=== PATIENT | male | born 1940 | race Caucasian/White ===

== ENCOUNTER 2016-05-16 07:36 | Outpatient (CLI) | payer MEDICARE, OTHER | END 2016-05-16 07:37 | disposition home or self-care (01) | DX: E11.9 Type 2 diabetes mellitus without complications (principal) ==

== ENCOUNTER 2016-06-19 15:21 | Outpatient (CLI) | payer MEDICARE, OTHER | END 2016-06-19 15:22 | DX: E11.9 Type 2 diabetes mellitus without complications (principal); R39.15 Urgency of urination ==

== ENCOUNTER 2016-06-20 10:44 | Outpatient (CLI) | payer MEDICARE, OTHER | END 2016-06-20 10:45 | disposition home or self-care (01) | DX: E11.9 Type 2 diabetes mellitus without complications (principal); R39.15 Urgency of urination ==

== ENCOUNTER 2016-09-28 08:54 | Outpatient (CLI) | payer MEDICARE, OTHER ==
[2016-09-28 13:26] LABS: BASOPHILS # (AUTO) 0.1 10^3/uL (0.0-0.1); BASOPHILS % (AUTO) 0.6 %; EOSINOPHILS # (AUTO) 0.2 10^3/uL (0.0-0.7); EOSINOPHILS % (AUTO) 1.9 %; HCT - HEMATOCRIT 46.9 % (42.0-52.0); HGB - HEMOGLOBIN 15.6 g/dL (14.0-18.0); LYMPHOCYTES % (AUTO) 47.1 %; MEAN CORPUSCULAR HEMOGLOBIN 31.5 pg (27.0-31.0); MEAN CORPUSCULAR HGB CONC 33.2 g/dL (32.0-36.0); MEAN CORPUSCULAR VOLUME 94.8 fL (80.0-94.0); MEAN PLATELET VOLUME 11.2 fL (7.4-11.4); MONOCYTES % (AUTO) 9.4 %; NEUTROPHILS # (AUTO) 4.4 10^3/uL (1.5-6.6); RED BLOOD COUNT 4.95 10^6/uL (4.70-6.10); UNCORRECTED WHITE BLOOD COUNT 10.7 x10^3/uL; WHITE BLOOD COUNT 10.7 x10^3/uL (4.8-10.8)
[2016-09-28 13:31] LABS: HEMOGLOBIN A1C 0.81 g/dL
[2016-09-28 13:32] LABS: ALBUMIN/GLOBULIN RATIO 1.1 (1.0-2.2); BILIRUBIN,TOTAL 0.6 mg/dL (0.2-1.0); BUN - BLOOD UREA NITROGEN 25 mg/dL (6-20); CALCIUM 9.1 mg/dL (8.5-10.3); CARBON DIOXIDE - CO2 25 mmol/L (21-32); CHLORIDE 107 mmol/L (101-111); CHOL/HDL RATIO 6.4 (<5.0); CHOLESTEROL 191 mg/dL; CREATININE 0.9 mg/dL (0.6-1.2); GFR - MDRD 82 (>89); GLUCOSE 112 mg/dL (70-100); HDL CHOLESTEROL 30 mg/dL; LDL/HDL RATIO 2.9 (<3.6); POTASSIUM 3.9 mmol/L (3.5-5.0); SODIUM 139 mmol/L (135-145); TOTAL PROTEIN 7.5 g/dL (6.7-8.2); TRIGLYCERIDES 376 mg/dL; VLDL CHOLESTEROL 75 mg/dL
== END 2016-09-28 08:55 | disposition home or self-care (01) ==
LOC: LAB.WCP 08:54
PROVIDERS: ATTEND Family Medicine
DX: E11.9 Type 2 diabetes mellitus without complications (principal)
CPT/HCPCS: 36415; 80053; 80061; 83036; 84443; 85025

== ENCOUNTER 2017-01-01 13:29 | Outpatient (CLI) | payer MEDICARE, OTHER ==
[2017-01-01 14:07] LABS: ALBUMIN/GLOBULIN RATIO 1.2 (1.0-2.2); BILIRUBIN,TOTAL 0.6 mg/dL (0.2-1.0); CALCIUM 9.1 mg/dL (8.5-10.3); CREATININE 1.3 mg/dL (0.6-1.2); TOTAL PROTEIN 7.7 g/dL (6.7-8.2)
[2017-01-01 15:19] LABS: THYROID STIMULATING HORMONE 1.7 uIU/mL (0.34-5.60)
== END 2017-01-01 13:30 | disposition home or self-care (01) ==
LOC: LAB 13:29
PROVIDERS: ATTEND Internal Medicine Cardiovascular Disease
DX: I50.32 Chronic diastolic (congestive) heart failure (principal); I48.1 Persistent atrial fibrillation
CPT/HCPCS: 36415; 80053; 84439; 84443

== ENCOUNTER 2017-06-05 09:30 | Outpatient (CLI) | payer MEDICARE, OTHER ==
[2017-06-05 12:59] LABS: BASOPHILS % (AUTO) 0.2 %; EOSINOPHILS % (AUTO) 1.2 %; HGB - HEMOGLOBIN 16.4 g/dL (14.0-18.0); LYMPHOCYTES % (AUTO) 32.2 %; MEAN CORPUSCULAR HEMOGLOBIN 32.3 pg (27.0-31.0); MEAN CORPUSCULAR HGB CONC 33.3 g/dL (32.0-36.0); MEAN CORPUSCULAR VOLUME 96.8 fL (80.0-94.0); MEAN PLATELET VOLUME 10.8 fL (7.4-11.4); MONOCYTES % (AUTO) 8.5 %; NEUTROPHILS % (AUTO) 57.9 %; PLT - PLATELET COUNT 209 10^3/uL (130-450); RED BLOOD COUNT 5.09 10^6/uL (4.70-6.10); RED CELL DISTRIBUTION WIDTH 13.7 % (12.0-15.0); WHITE BLOOD COUNT 14.4 x10^3/uL (4.8-10.8)
[2017-06-05 13:35] LABS: HB2 TOTAL 18.6 g/dL; HEMOGLOBIN A1C 0.9 g/dL; HEMOGLOBIN A1C % 6.6 % (4.6-6.2)
[2017-06-05 13:38] LABS: FERRITIN 73.8 ng/mL (23.9-336.2)
[2017-06-05 13:51] LABS: % IRON SATURATION 40 % (20-50); ALBUMIN/GLOBULIN RATIO 1.1 (1.0-2.2); ALKALINE PHOSPHATASE 60 IU/L (42-121); ALT ALANINE AMINOTRANSFERASE 32 IU/L (10-60); AST ASPARTATE AMINOTRANSFERASE 36 IU/L (10-42); BUN - BLOOD UREA NITROGEN 28 mg/dL (6-20); CALCIUM 9.2 mg/dL (8.5-10.3); CARBON DIOXIDE - CO2 25 mmol/L (21-32); CHLORIDE 106 mmol/L (101-111); CHOLESTEROL 181 mg/dL; CREATININE 1.1 mg/dL (0.6-1.2); GFR - MDRD 65 (>89); GLUCOSE 148 mg/dL (70-100); HDL CHOLESTEROL 30 mg/dL; IRON 125 ug/dL (45-182); SODIUM 139 mmol/L (135-145); TOTAL IRON BINDING CAPACITY 315 ug/dL (250-450); TOTAL PROTEIN 7.5 g/dL (6.7-8.2); TRANSFERRIN 225 mg/dL (180-329)
[2017-06-05 14:10] LABS: LDL CHOLESTEROL,DIRECT 68 mg/dL; LDLD/HDL RATIO 2.3 (<3.6)
[2017-06-05 15:56] LABS: ABNORMAL LYMPHS % (MANUAL) 0 %; BAND NEUTROPHILS % (MANUAL) 0 %
[2017-06-05 16:13] LABS: BASOPHILS # (MANUAL) 0.1 10^3/uL (0-0.1); BASOPHILS % (MANUAL) 1 %; DIFFERENTIAL COMMENT MANUAL DIFFERENTIAL; LYMPHOCYTES # (MANUAL) 5.8 10^3/uL (1.5-3.5); LYMPHOCYTES % (MANUAL) 40 %; MONOCYTES # (MANUAL) 0.4 10^3/uL (0.0-1.0); NEUTROPHILS # (MANUAL) 8.1 10^3/uL (1.5-6.6); NEUTROPHILS % (MANUAL) 56 %; PLATELET ESTIMATE, MANUAL NORMAL (130-450,000) (NORMAL); PLATELET MORPHOLOGY NORMAL APPEARANCE (NORMAL); RBC MORPHOLOGY (MULTIPLE) NORMAL APPEARANCE (NORMAL)
== END 2017-06-05 09:31 | disposition home or self-care (01) ==
LOC: LAB.WCP 09:30
PROVIDERS: ATTEND Family Medicine
DX: R53.83 Other fatigue (principal); E11.9 Type 2 diabetes mellitus without complications; D72.829 Elevated white blood cell count, unspecified
CPT/HCPCS: 36415; 80053; 80061; 82306; 82607; 82728; 83036; 83540; 83721; 84466; 85025

== ENCOUNTER 2017-08-05 07:44 | Outpatient (CLI) | payer MEDICARE, OTHER ==
[2017-08-05 12:58] LABS: BASOPHILS # (AUTO) 0.1 10^3/uL (0.0-0.1); BASOPHILS % (AUTO) 0.5 %; EOSINOPHILS # (AUTO) 0.2 10^3/uL (0.0-0.7); EOSINOPHILS % (AUTO) 1.4 %; HGB - HEMOGLOBIN 16.1 g/dL (14.0-18.0); LYMPHOCYTES # (AUTO) 9.7 10^3/uL (1.5-3.5); LYMPHOCYTES % (AUTO) 63.2 %; MEAN CORPUSCULAR HEMOGLOBIN 32.7 pg (27.0-31.0); MEAN CORPUSCULAR HGB CONC 34.1 g/dL (32.0-36.0); MEAN CORPUSCULAR VOLUME 96.1 fL (80.0-94.0); MEAN PLATELET VOLUME 11.1 fL (7.4-11.4); MONOCYTES # (AUTO) 1.3 10^3/uL (0.0-1.0); MONOCYTES % (AUTO) 8.3 %; NEUTROPHILS # (AUTO) 4.1 10^3/uL (1.5-6.6); NEUTROPHILS % (AUTO) 26.6 %; PLT - PLATELET COUNT 243 10^3/uL (130-450); RED BLOOD COUNT 4.92 10^6/uL (4.70-6.10); RED CELL DISTRIBUTION WIDTH 13.7 % (12.0-15.0); WHITE BLOOD COUNT 15.3 x10^3/uL (4.8-10.8)
[2017-08-05 13:12] LABS: THYROID STIMULATING HORMONE 3.36 uIU/mL (0.34-5.60)
[2017-08-05 13:15] LABS: HB2 TOTAL 17.9 g/dL; HEMOGLOBIN A1C 0.95 g/dL
[2017-08-05 13:17] LABS: ALBUMIN 3.7 g/dL (3.2-5.5); ALBUMIN/GLOBULIN RATIO 1.1 (1.0-2.2); ALKALINE PHOSPHATASE 59 IU/L (42-121); ALT ALANINE AMINOTRANSFERASE 25 IU/L (10-60); AST ASPARTATE AMINOTRANSFERASE 28 IU/L (10-42); BILIRUBIN,TOTAL 0.4 mg/dL (0.2-1.0); BUN - BLOOD UREA NITROGEN 21 mg/dL (6-20); CALCIUM 9.3 mg/dL (8.5-10.3); CARBON DIOXIDE - CO2 25 mmol/L (21-32); CHLORIDE 105 mmol/L (101-111); CHOL/HDL RATIO 7.9 (<5.0); CHOLESTEROL 197 mg/dL; GFR - MDRD 73 (>89); GLUCOSE 132 mg/dL (70-100); HDL CHOLESTEROL 25 mg/dL; SODIUM 138 mmol/L (135-145)
[2017-08-05 13:39] LABS: LDL CHOLESTEROL,DIRECT 76 mg/dL
[2017-08-05 13:54] LABS: PLATELET ESTIMATE, MANUAL NORMAL (130-450,000) (NORMAL); PLATELET MORPHOLOGY NORMAL APPEARANCE (NORMAL)
[2017-08-05 13:55] LABS: RBC MORPHOLOGY (MULTIPLE) NORMAL APPEARANCE (NORMAL)
== END 2017-08-05 07:45 | disposition home or self-care (01) ==
LOC: LAB.WCP 07:44
PROVIDERS: ATTEND Family Medicine
DX: E11.40 Type 2 diabetes mellitus with diabetic neuropathy, unspecified (principal)
CPT/HCPCS: 36415; 80053; 80061; 82607; 83036; 83721; 84443; 85025

== ENCOUNTER 2017-11-04 08:06 | Outpatient (CLI) | payer MEDICARE, OTHER ==
[2017-11-04 13:01] LABS: BASOPHILS % (AUTO) 0.4 %; EOSINOPHILS # (AUTO) 0.2 10^3/uL (0.0-0.7); EOSINOPHILS % (AUTO) 1.8 %; HGB - HEMOGLOBIN 15.8 g/dL (14.0-18.0); LYMPHOCYTES # (AUTO) 5.7 10^3/uL (1.5-3.5); LYMPHOCYTES % (AUTO) 51.3 %; MEAN CORPUSCULAR HEMOGLOBIN 32.6 pg (27.0-31.0); MEAN CORPUSCULAR HGB CONC 32.9 g/dL (32.0-36.0); MEAN CORPUSCULAR VOLUME 99.3 fL (80.0-94.0); MEAN PLATELET VOLUME 10.7 fL (7.4-11.4); MONOCYTES % (AUTO) 9.1 %; NEUTROPHILS # (AUTO) 4.1 10^3/uL (1.5-6.6); NEUTROPHILS % (AUTO) 37.4 %; PLT - PLATELET COUNT 222 10^3/uL (130-450); RED BLOOD COUNT 4.83 10^6/uL (4.70-6.10); RED CELL DISTRIBUTION WIDTH 14.1 % (12.0-15.0)
[2017-11-04 13:10] LABS: ALBUMIN 3.3 g/dL (3.2-5.5); ALKALINE PHOSPHATASE 46 IU/L (42-121); ALT ALANINE AMINOTRANSFERASE 26 IU/L (10-60); AST ASPARTATE AMINOTRANSFERASE 29 IU/L (10-42); BILIRUBIN,TOTAL 0.5 mg/dL (0.2-1.0); BUN - BLOOD UREA NITROGEN 23 mg/dL (6-20); CALCIUM 9.1 mg/dL (8.5-10.3); CARBON DIOXIDE - CO2 26 mmol/L (21-32); CHLORIDE 108 mmol/L (101-111); CHOL/HDL RATIO 5.5 (<5.0); CHOLESTEROL 198 mg/dL; GFR - MDRD 73 (>89); GLUCOSE 173 mg/dL (70-100); HB2 TOTAL 17.8 g/dL; HDL CHOLESTEROL 36 mg/dL; HEMOGLOBIN A1C 1.04 g/dL; HEMOGLOBIN A1C % 7.5 % (4.6-6.2); LDL CHOLESTEROL,CALCULATED 91 mg/dL; LDL/HDL RATIO 2.5 (<3.6); SODIUM 141 mmol/L (135-145); TOTAL PROTEIN 6.7 g/dL (6.7-8.2); VLDL CHOLESTEROL 71 mg/dL
== END 2017-11-04 08:07 ==
LOC: LAB.WCP 08:06
PROVIDERS: ATTEND Family Medicine
DX: E11.40 Type 2 diabetes mellitus with diabetic neuropathy, unspecified (principal); E78.1 Pure hyperglyceridemia; D72.829 Elevated white blood cell count, unspecified
CPT/HCPCS: 36415; 80053; 80061; 83036; 83721; 85025

== ENCOUNTER 2018-05-22 08:10 | Outpatient (CLI) | payer MEDICARE, OTHER ==
[2018-05-22 12:54] LABS: BASOPHILS % (AUTO) 0.4 %; EOSINOPHILS % (AUTO) 2.8 %; HGB - HEMOGLOBIN 18.1 g/dL (14.0-18.0); LYMPHOCYTES % (AUTO) 53.6 %; MEAN CORPUSCULAR HEMOGLOBIN 32.4 pg (27.0-31.0); MEAN CORPUSCULAR VOLUME 98.1 fL (80.0-94.0); MEAN PLATELET VOLUME 10.4 fL (7.4-11.4); MONOCYTES % (AUTO) 9.7 %; NEUTROPHILS % (AUTO) 33.5 %; PLT - PLATELET COUNT 283 10^3/uL (130-450); RED BLOOD COUNT 5.59 10^6/uL (4.70-6.10); RED CELL DISTRIBUTION WIDTH 14.3 % (12.0-15.0); WHITE BLOOD COUNT 12.6 x10^3/uL (4.8-10.8)
[2018-05-22 13:08] LABS: ALBUMIN/GLOBULIN RATIO 1.2 (1.0-2.2); ALKALINE PHOSPHATASE 45 IU/L (42-121); ALT ALANINE AMINOTRANSFERASE 21 IU/L (10-60); AST ASPARTATE AMINOTRANSFERASE 29 IU/L (10-42); BILIRUBIN,TOTAL 1.2 mg/dL (0.2-1.0); BUN - BLOOD UREA NITROGEN 24 mg/dL (6-20); CALCIUM 9.4 mg/dL (8.5-10.3); CARBON DIOXIDE - CO2 28 mmol/L (21-32); CHLORIDE 103 mmol/L (101-111); CHOL/HDL RATIO 5.7 (<5.0); CHOLESTEROL 189 mg/dL; CREATININE 1.1 mg/dL (0.6-1.2); GFR - MDRD 65 (>89); HDL CHOLESTEROL 33 mg/dL; LDL CHOLESTEROL,CALCULATED 126 mg/dL; LDL/HDL RATIO 3.8 (<3.6); SODIUM 138 mmol/L (135-145); TOTAL PROTEIN 7.3 g/dL (6.7-8.2); VLDL CHOLESTEROL 30 mg/dL
[2018-05-22 13:09] LABS: GLUCOSE 52 mg/dL (70-100)
[2018-05-22 13:10] LABS: HB2 TOTAL 19.9 g/dL; HEMOGLOBIN A1C 0.98 g/dL; HEMOGLOBIN A1C % 6.7 % (4.6-6.2)
[2018-05-22 13:13] LABS: ABNORMAL LYMPHS % (MANUAL) 0 %; BAND NEUTROPHILS % (MANUAL) 0 %
[2018-05-22 14:13] LABS: EOSINOPHILS # (MANUAL) 0.4 10^3/uL (0-0.7); LYMPHOCYTES # (MANUAL) 7.6 10^3/uL (1.5-3.5); LYMPHOCYTES % (MANUAL) 45 %; NEUTROPHILS # (MANUAL) 3.7 10^3/uL (1.5-6.6); NEUTROPHILS % (MANUAL) 29 %
[2018-05-22 14:14] LABS: DIFFERENTIAL COMMENT MANUAL DIFFERENTIAL
== END 2018-05-22 23:59 | disposition home or self-care (01) ==
LOC: LAB.WCP 08:10
PROVIDERS: ATTEND Family Medicine
DX: E11.9 Type 2 diabetes mellitus without complications (principal)
CPT/HCPCS: 36415; 80053; 80061; 83036; 83721; 85025

== ENCOUNTER 2018-07-08 14:09 | Outpatient (CLI) | payer MEDICARE, OTHER | END 2018-07-08 14:10 | disposition home or self-care (01) | LOC: SC 14:09 | PROVIDERS: ATTEND Internal Medicine Pulmonary Disease | DX: G47.31 Primary central sleep apnea (principal); R06.3 Periodic breathing; E66.9 Obesity, unspecified; Z68.34 Body mass index [BMI] 34.0-34.9, adult | CPT/HCPCS: 99203; G0463; 99212 ==

== ENCOUNTER 2018-07-17 11:28 | Outpatient (CLI) | payer MEDICARE, OTHER ==
[2018-07-17 11:13] LABS: ABNORMAL LYMPHS % (MANUAL) 0 %; BAND NEUTROPHILS % (MANUAL) 0 %
[2018-07-17 18:44] LABS: BASOPHILS % (AUTO) 0.5 %; EOSINOPHILS % (AUTO) 1.4 %; HGB - HEMOGLOBIN 16.7 g/dL (14.0-18.0); LYMPHOCYTES % (AUTO) 40.6 %; MEAN CORPUSCULAR HEMOGLOBIN 32.4 pg (27.0-31.0); MEAN CORPUSCULAR HGB CONC 33.1 g/dL (32.0-36.0); MEAN PLATELET VOLUME 10.4 fL (7.4-11.4); MONOCYTES % (AUTO) 7.5 %; PLT - PLATELET COUNT 269 10^3/uL (130-450); RED BLOOD COUNT 5.15 10^6/uL (4.70-6.10); RED CELL DISTRIBUTION WIDTH 14.2 % (12.0-15.0); WHITE BLOOD COUNT 10.8 x10^3/uL (4.8-10.8)
[2018-07-17 19:05] LABS: DIFFERENTIAL COMMENT MANUAL DIFFERENTIAL; EOSINOPHILS # (MANUAL) 0.1 10^3/uL (0-0.7); LYMPHOCYTES # (MANUAL) 5.1 10^3/uL (1.5-3.5); LYMPHOCYTES % (MANUAL) 47 %; NEUTROPHILS % (MANUAL) 43 %; PLATELET ESTIMATE, MANUAL NORMAL (130-450,000) (NORMAL); PLATELET MORPHOLOGY NORMAL APPEARANCE (NORMAL); RBC MORPHOLOGY (MULTIPLE) NORMAL APPEARANCE (NORMAL)
[2018-07-17 19:07] LABS: NEUTROPHILS # (MANUAL) 4.6 10^3/uL (1.5-6.6)
== END 2018-07-17 11:29 | disposition home or self-care (01) ==
LOC: LAB.WCP 11:28
PROVIDERS: ATTEND Family Medicine
DX: D72.829 Elevated white blood cell count, unspecified (principal)
CPT/HCPCS: 36415; 85025

== ENCOUNTER 2018-08-11 13:15 | Outpatient (CLI) | payer MEDICARE, OTHER | END 2018-08-11 13:16 | disposition home or self-care (01) | LOC: SC 13:15 | PROVIDERS: ATTEND Internal Medicine Pulmonary Disease | DX: G47.31 Primary central sleep apnea (principal) | CPT/HCPCS: 99213; G0463; 99212 ==

== ENCOUNTER 2018-08-31 08:26 | Emergency (ER) | payer MEDICARE, OTHER ==
--- NOTE | 2018-08-31 09:06 | ED Physician Documentation ---
PD HPI LOWER EXT INJURY - Stated complaint Stated Complaint: R KNEE INJ/GLF - Chief complaint Chief Complaint: Trauma Ext - History obtained from History obtained from: Patient - History of Present Illness PD HPI LOW EXT INJURY LOCATION: Right, Knee Type of injury: Fall Where injury occurred: Bar Timing - onset: Last night Timing - duration: Hours Timing - details: Abrupt onset, Still present Improved by: Rest, Immobilization Worsened by: Moving, Palpating Associated symptoms: Swelling, Discolored. 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 He has an abrasion to his knee significant amount of swelling to the knee and he is having trouble flexing and extending the knee. He has had a knee replacement on that side he is able to bear weight without much pain. He is able to walk as long as he does not bend his knee. Review of Systems Constitutional: denies: Fever Eyes: denies: Decreased vision Ears: denies: Ear pain Nose: denies: Congestion Throat: denies: Sore throat Cardiac: denies: Chest pain / pressure Respiratory: denies: Dyspnea, Cough GI: denies: Abdominal Pain, Nausea, Vomiting : denies: Dysuria PD PAST MEDICAL HISTORY - Present Medications Home Medications: Ambulatory Orders Medication Instructions Recorded Confirmed Fish Oil/Dha/Epa [Fish Oil 1,200 1 each PO DAILY 05/04/13 09/10/17 mg Fish Oil] Insulin Glargine,Hum.rec.anlog 60 unit SQ BID 05/04/13 09/10/17 [Lantus] Losartan [Cozaar] 50 mg PO BID 05/04/13 09/10/17 Niacin [Niaspan] 500 mg PO BID 05/04/13 09/10/17 Vitamin B Complex Vit C No.4 150 mg PO DAILY 05/04/13 09/10/17 [Super B Complex] amLODIPine [Norvasc] 5 mg PO BID 05/04/13 09/10/17 glipiZIDE [Glucotrol] 15 mg PO QAM 05/04/13 09/10/17 glipiZIDE [Glucotrol] 15 mg PO QPM 05/04/13 09/10/17 metFORMIN [Glucophage] 1,000 mg PO QPM 05/04/13 09/10/17 metFORMIN [Glucophage] 1,500 mg PO QAM 05/04/13 09/10/17 Hydrocodone/Acetaminophen 1 - 2 each PO Q6H PRN #14 tablet 08/31/18 [Hydrocodon-Acetaminophen 5-325] - Allergies Allergies/Adverse Reactions: Allergies Allergy/AdvReac Type Severity Reaction Status Date / Time Beta-Blockers Allergy Unknown Verified 08/31/18 08:49 (Beta-Adrenergic Bloc pioglitazone [From Actos] Allergy Unknown Verified 08/31/18 08:49 Znzrqtz-Lmt-Ppd Reductase AdvReac Unknown Verified 08/31/18 08:48 Inhibitor PD ED PE NORMAL - Vitals Vital signs reviewed: Yes (hypertensive ) - General General: Alert and oriented X 3, No acute distress, Well developed/nourished - HEENT HEENT: Atraumatic, PERRL, EOMI - Respiratory Respiratory: No respiratory distress - Derm Derm: Normal color, Warm and dry, No rash - Extremities Extremities: Other (The patient is wearing a ortiz bag on the right leg and there is significant swelling ecchymosis and tenderness to the right knee anteriorly. The blood appears to be extra-articular and there is an abrasion inferior to the patella) - Neuro Neuro: Alert and oriented X 3, pot pusher 2-12 intact, No motor deficit, No sensory deficit, Normal speech Eye Opening: Spontaneous Motor: Obeys Commands Verbal: Oriented GCS Score: 15 - Psych Psych: Normal mood, Normal affect Results - Vitals Vitals: Vital Signs - 24 hr 08/31/18 08/31/18 08:42 08:48 Temperature 36.8 C Heart Rate 60 61 Respiratory 14 14 Rate Blood Pressure 142/95 H 142/95 H O2 Saturation 97 96 Oxygen O2 Source Room air - Rads (name of study) knee Radiology: Prelim report reviewed (Impression: 1. Expected appearance of knee arthroplasty. No fracture or other acute osseous abnormality. 2 There is a small joint effusion. 3 Marked soft tissue swelling anterior to the patella.), EMP read indepedently, See rad report PD MEDICAL DECISION MAKING - ED course Complexity details: reviewed old records, reviewed results, re-evaluated patient, considered differential, d/w patient ED course: 78-year-old male on Eliquis has developed a hematoma to the right knee after a fall last night. He is having some trouble walking with this secondary to pain when he bends his knee. He is able to bear weight and there is no significant joint effusion. Most of the swelling is over the top of the patella. He is placed into a knee immobilizer. Departure - Departure Disposition: 01 Home, Self Care Clinical Impression: Contusion of right knee Qualifiers: Encounter type: initial encounter Qualified Code(s): S80.01XA - Contusion of right knee, initial encounter Condition: Stable Instructions: ED Contusion Lower Ext Follow-Up: Ganga Aguilar DO [Primary Care Provider] - Prescriptions: Hydrocodone/Acetaminophen [Hydrocodon-Acetaminophen 5-325] 1 - 2 each PO Q6H PRN #14 tablet PRN Reason: pain
--- NOTE | 2018-08-31 10:00 | XRAY Report ---
Reason: fall swelling pain Procedure Date: 08/31/2018 Accession Number: [id number] / [id number] Procedure: XR - Knee 2 View RT CPT Code: FULL RESULT: EXAM: RIGHT KNEE RADIOGRAPHY EXAM DATE: 08/31/2018 09:41 AM. CLINICAL HISTORY: Fall swelling pain. COMPARISON: RT KNEE 06/19/2006 10:34 AM. TECHNIQUE: 2 views. FINDINGS: Bones and Joints: No fractures or bone lesion. A 3 component right knee arthroplasty has been performed. There is expected alignment of components. No unexpected periprosthetic lucency or other evidence of loosening. Soft Tissues: There is a small knee joint effusion. There is marked soft tissue swelling anterior to the patella. IMPRESSION: 1. Expected appearance of knee arthroplasty. No fracture or other acute osseous abnormality. 2. There is a small knee joint effusion. 3. Marked soft tissue swelling anterior to the patella. RADIA
[2018-08-31 12:42] VITALS: BP 140/90
== END 2018-08-31 12:42 | disposition home or self-care (01) ==
LOC: ED 08:26
DX: S80.01XA Contusion of right knee, initial encounter (principal); W01.0XXA Fall on same level from slipping, tripping and stumbling without subsequent striking against object, initial encounter; Y93.01 Activity, walking, marching and hiking; Y92.511 Restaurant or cafe as the place of occurrence of the external cause
CPT/HCPCS: 99283

== ENCOUNTER 2019-05-04 10:13 | Outpatient (CLI) | payer MEDICARE, OTHER ==
--- NOTE | 2019-05-04 15:33 | XRAY Report ---
Reason: LEFT SHOULDER PAIN Procedure Date: 05/04/2019 Accession Number: [id number] / [id number] Procedure: WCP - Shoulder 2 View LT CPT Code: Final Report FULL RESULT: EXAM: LEFT SHOULDER RADIOGRAPHY EXAM DATE: 05/04/2019 10:13 AM. CLINICAL HISTORY: Chronic LEFT SHOULDER PAIN. COMPARISON: None. TECHNIQUE: 2 views. FINDINGS: Bones: Normal. No fracture or bone lesion. Joints: The glenohumeral joint is unremarkable. There is mild widening of the acromioclavicular joint, measuring about 7 mm. There is minimal bony hypertrophy at the distal Soft tissues: The visualized hemithorax is unremarkable. No soft tissue swelling. IMPRESSION: 1. Slight widening of the left acromioclavicular joint and slight bony hypertrophy at the distal clavicle which could reflect remote [place] type 2 AC separation. 2. Otherwise negative left shoulder series. RADIA
== END 2019-05-04 10:14 | disposition home or self-care (01) ==
LOC: DI.WCP 10:13
PROVIDERS: ATTEND Family Medicine
DX: M89.312 Hypertrophy of bone, left shoulder (principal)

== ENCOUNTER 2019-05-26 08:15 | Outpatient (CLI) | payer MEDICARE, OTHER ==
[2019-05-26 12:32] LABS: BASOPHILS # (AUTO) 0.1 10^3/uL (0.0-0.1); BASOPHILS % (AUTO) 0.7 %; EOSINOPHILS # (AUTO) 0.2 10^3/uL (0.0-0.7); EOSINOPHILS % (AUTO) 1.9 %; HGB - HEMOGLOBIN 18.5 g/dL (14.0-18.0); LYMPHOCYTES # (AUTO) 5.7 10^3/uL (1.5-3.5); LYMPHOCYTES % (AUTO) 57.2 %; MEAN CORPUSCULAR HEMOGLOBIN 32.1 pg (27.0-31.0); MEAN CORPUSCULAR HGB CONC 32.9 g/dL (32.0-36.0); MEAN CORPUSCULAR VOLUME 97.6 fL (80.0-94.0); MEAN PLATELET VOLUME 11.8 fL (7.4-11.4); MONOCYTES # (AUTO) 0.9 10^3/uL (0.0-1.0); MONOCYTES % (AUTO) 8.9 %; NEUTROPHILS # (AUTO) 3.1 10^3/uL (1.5-6.6); NEUTROPHILS % (AUTO) 31.1 %; PLT - PLATELET COUNT 285 10^3/uL (130-450); RED BLOOD COUNT 5.76 10^6/uL (4.70-6.10); RED CELL DISTRIBUTION WIDTH 14.2 % (12.0-15.0); WHITE BLOOD COUNT 9.9 x10^3/uL (4.8-10.8)
[2019-05-26 12:48] LABS: PLATELET ESTIMATE, MANUAL NORMAL (130-450,000) (NORMAL); PLATELET MORPHOLOGY NORMAL APPEARANCE (NORMAL)
[2019-05-26 14:22] LABS: HB2 TOTAL 18.2 g/dL; HEMOGLOBIN A1C 1.19 g/dL; HEMOGLOBIN A1C % 8.1 % (4.6-6.2)
[2019-05-26 14:39] LABS: ALBUMIN 3.8 g/dL (3.2-5.5); ALBUMIN/GLOBULIN RATIO 1.1 (1.0-2.2); ALKALINE PHOSPHATASE 70 IU/L (42-121); ALT ALANINE AMINOTRANSFERASE 28 IU/L (10-60); AST ASPARTATE AMINOTRANSFERASE 27 IU/L (10-42); BILIRUBIN,TOTAL 0.9 mg/dL (0.2-1.0); BUN - BLOOD UREA NITROGEN 22 mg/dL (6-20); CALCIUM 9.3 mg/dL (8.5-10.3); CARBON DIOXIDE - CO2 27 mmol/L (21-32); CHLORIDE 104 mmol/L (101-111); CHOLESTEROL 179 mg/dL; CREATININE 0.9 mg/dL (0.6-1.2); GFR - MDRD 82 (>89); GLUCOSE 107 mg/dL (70-100); HDL CHOLESTEROL 30 mg/dL; LDL CHOLESTEROL,CALCULATED 95 mg/dL; LDL/HDL RATIO 3.2 (<3.6); SODIUM 143 mmol/L (135-145); TOTAL PROTEIN 7.4 g/dL (6.7-8.2); VLDL CHOLESTEROL 54 mg/dL
[2019-05-26 15:45] LABS: FREE T4 (FREE THYROXINE) 1.4 ng/dL (0.58-1.64)
== END 2019-05-26 23:59 | disposition home or self-care (01) ==
LOC: LAB.WCP 08:15
PROVIDERS: ATTEND Family Medicine
DX: E11.9 Type 2 diabetes mellitus without complications (principal)
CPT/HCPCS: 36415; 80053; 80061; 83036; 83721; 84439; 84443; 85025

== ENCOUNTER 2019-07-04 07:11 | Outpatient (CLI) | payer MEDICARE, OTHER ==
--- NOTE | 2019-07-04 22:32 | Ultrasound Report ---
Reason: POLYCYTHEMIA Procedure Date: 07/04/2019 Accession Number: [id number] / [id number] Procedure: US - Abdomen Complete CPT Code: Final Report FULL RESULT: EXAM: ABDOMEN ULTRASOUND EXAM DATE: 07/04/2019 08:30 AM. CLINICAL HISTORY: Polycythemia. COMPARISON: ABDOMEN 07/04/2009 2:53 PM. TECHNIQUE: Real-time scanning was performed with static images obtained. FINDINGS: Liver: Liver is normal in echogenicity. There are a few nonspecific small echogenic foci within the left hepatic lobe measuring up to 4 mm. These are difficult to characterize. These cannot be identified on the prior examination. 21.2 cm. Portal vein is patent with hepatopetal flow. Hepatic veins are patent as visualized. Gallbladder: Gallstones are noted. No pericholecystic fluid or wall thickening demonstrated. Small amount of sludge also present. Biliary System: Common bile duct measures 4.4 mm. No intrahepatic or extrahepatic ductal dilatation. Pancreas: Obscured by overlying structures. Kidneys: Right: 12.9 cm longitudinally. There is no hydronephrosis. Small cortical cysts are noted within the right kidney, largest within the lower pole measuring 16 mm. Layering milk of calcium noted within this cyst in the lower pole of the right kidney. Left: 14.4 cm longitudinally. There is no hydronephrosis. lobulation of the kidney. Multiple scattered parenchymal hypoechoic areas, suggestive of cysts. Some of these contain internal calcium. The dominant abnormality measures 1.8 cm. Spleen: Surgically absent. Aorta and Inferior Vena Cava: Unremarkable. Other: None. IMPRESSION: 1. Multiple scattered small left renal parenchymal cysts and a few scattered small right-sided renal parenchymal cysts. These measure up to 1.8 cm in maximal diameter. 2. There are a few nonspecific tiny hyperechoic areas within the left hepatic lobe measuring less than 4 mm. These are difficult to characterize. 3. The liver is enlarged measuring 21 cm. Multilobulated appearance of the liver. 4. Gallstones without evidence of cholecystitis or biliary dilation. 5. Prior splenectomy. RADIA
== END 2019-07-04 07:12 | disposition home or self-care (01) ==
LOC: DI 07:11
PROVIDERS: ATTEND Internal Medicine
DX: Q61.02 Congenital multiple renal cysts (principal); R16.0 Hepatomegaly, not elsewhere classified; K80.20 Calculus of gallbladder without cholecystitis without obstruction; Z90.81 Acquired absence of spleen
CPT/HCPCS: 76700

== ENCOUNTER 2019-10-19 11:08 | Outpatient (CLI) | payer MEDICARE, OTHER ==
--- NOTE | 2019-10-19 11:46 | SLEEP CARE CONSULTATION ---
Information from patient questionnaire entered by Jamaica Crockett. I have reviewed and concur with the information entered by Jamaica Crockett. This document represents the service I personally performed and the decisions made by me, Jessica Brown, RN, MSN, BUSINESS SYSTEMS DEVELOPER. History of Present Illness Service Date and Time: 10/19/2019 1108 Previous diagnosis: Very Severe, Central Sleep Apnea-Hypopnea Syndrome AHI: 65.8 (in 2014) Reason for follow up: annual (last seen 2019) Equipment type: ASV Equipment obtained from: Other ([facility] [employer] - getting supplies as needed) Mask style: Full face Backup mask available: Yes (old mask) Last cushion change: 3 weeks ago Prior sleep studies: Yes Year and Where: 2014 - [facility] in [place], [place] Type of Sleep Study: Polysomnography (Split-night) CPAP Compliance Data - Data Reviewed with Patient Average duration of nightly device use: 9.75 Compliance rate %: 100 (180 days) Current pressure setting (cmH2O): 10 EPAP Humidity setting: ? Heated hose setting: ? Average residual AHI: 0.2 (3cm - 15cm pressure support) Average large leak: 24 liters per minute On Oxygen: No Subjective Patient concerns: reports: condensation in mask/hose (rare ), other (thinks he is due for a new device). denies: aerophagia, mask discomfort, air blowing in eyes, mask leak noise, nasal congestion, dry mouth, nose, throat, epistaxis Observed to snore while using device: No Current pressure setting perceived as: comfortable On therapy, patient: reports: sleeping better, awakening more refreshed, being more awake and alert during the day, more rested overall (but fatigue he attributes to his atrial fibrillation). denies: drowsiness while driving Initial [place] Sleepiness Scale score: 4 (in 2019) Current [place] Sleepiness Scale score: 4 Allergies and Home Medications Known drug allergies: Yes (see list ) Home medication list reviewed: Yes (no changes stated) Review of Systems Review of systems same as previous: No (Diagnosed with polycythemia and seen by mushroom growth media mixer / back pain - appt) Physical Exam Blood Pressure: 134/70 Cuff size: long Heart Rate: 57 (irregular) O2 Saturation: 96 Height: 5 ft 11 in Weight: 289 lb 6.4 oz Body Mass Index: 40.4 BMI Classification: Morbidly Obese Impression and Plan 1. Central Sleep Apnea-Hypopnea Syndrome, very severe, with good treatment compliance and good apnea control. On VPAP therapy with EPAP at [id number] and pressure support set at minimum of 3cmH20 and maximum of [id number]. The patient has better sleep quality and is more rested overall except residual fatigue he feels is from atrial fibrillation. If condensation increases, he can reduce humidity setting as the heated hose is at maximum. He can contact [facility] [employer] for instructions. To reduce mask leaks, he is advised to adjust mask headgear. He thinks he is due for new device. I will confer with Dr. Lomas. He was informed of process for new device follow up and compliance. Currently patients BMI is 40 obesity class . Obesity increases the risk of apnea, CPAP pressure requirements and overall health risks especially cardiovascular and diabetes. Thus patient is advised to lose weight. Weight loss can be done with reducing portion size, reducing refined foods and balancing content with vegetables, fruit and protein. In addition tracking food intake will allow awareness of how to modify diet to achieve weight loss goals. Also eating more slowly will allow more awareness of food intake and enjoyment of food while assisting patient to modify intake at each meal. A diet consultation can be helpful in achieving optimal weight loss goals. The BMI chart was reviewed. Patient encouraged to discuss their weight loss goals with their PCP and consider a referral to a labor economics professor. The patient's VPAP pressure range should accommodate some weight loss. Symptoms to report for additional pressure adjustment discussed.Patient's apnea severity and rationale for treatment to reduce apnea, improve sleep quality and reduce cardiovascular and cerebrovascular events was reviewed. I also reviewed the benefit of consistent device use of CPAP for hypertension, cardiac disease, arrhythmia, diabetes. * Continue VPAP with EPAP at 10 cmH2O with [id number] pressure support * Confer with Dr. Lomas re update of VPAP prescription. * Adjust headgear. * Notify me if snoring with mask or feeling that the pressure is too much or too little * Attempt to lose weight * Call this office if any problems using CPAP * Return for follow up in one month after new device if due, otherwise one year , or sooner if concerns arise Visit Type: In Office Time Spent with Patient (minutes): 25 Provider Statement: I spent 100% of the Face to Face Visit with the patient with greater than 50% spent counseling the patient and coordination of care.
[2019-10-19 11:47] VITALS: BP 134/70
== END 2019-10-19 11:09 | disposition home or self-care (01) ==
LOC: SC 11:08
PROVIDERS: ATTEND Nurse Practitioner Family
DX: G47.31 Primary central sleep apnea (principal); E66.01 Morbid (severe) obesity due to excess calories; Z68.41 Body mass index [BMI] 40.0-44.9, adult
CPT/HCPCS: 99214; G0463; 99212

== ENCOUNTER 2019-12-21 08:00 | Outpatient (CLI) | payer MEDICARE, OTHER ==
[2019-12-21 18:50] LABS: ALBUMIN 4.2 g/dL (3.2-5.5); ALBUMIN/GLOBULIN RATIO 1.2 (1.0-2.2); CALCIUM 9.5 mg/dL (8.5-10.3); TOTAL PROTEIN 7.8 g/dL (6.7-8.2)
[2019-12-21 20:44] LABS: HEMOGLOBIN A1c% 7.8 % (4.27-6.07)
== END 2019-12-21 23:59 | disposition home or self-care (01) ==
LOC: LAB.WCP 08:00
PROVIDERS: ATTEND Family Medicine
DX: E11.40 Type 2 diabetes mellitus with diabetic neuropathy, unspecified (principal)
CPT/HCPCS: 36415; 80053; 83036

== ENCOUNTER 2020-05-23 08:00 | Outpatient (CLI) | payer MEDICARE, OTHER ==
[2020-05-23 13:33] LABS: ALBUMIN 3.8 g/dL (3.2-5.5); ALKALINE PHOSPHATASE 97 IU/L (42-121); ALT ALANINE AMINOTRANSFERASE 35 IU/L (10-60); AST ASPARTATE AMINOTRANSFERASE 37 IU/L (10-42); BUN - BLOOD UREA NITROGEN 19 mg/dL (6-20); CALCIUM 9.3 mg/dL (8.5-10.3); CARBON DIOXIDE - CO2 23 mmol/L (21-32); CHLORIDE 102 mmol/L (101-111); CHOLESTEROL 190 mg/dL; GLUCOSE 171 mg/dL (70-100); HDL CHOLESTEROL 38 mg/dL; LDL CHOLESTEROL,CALCULATED 109 mg/dL; LDL/HDL RATIO 2.9 (<3.6); TOTAL PROTEIN 7.7 g/dL (6.7-8.2); VLDL CHOLESTEROL 43 mg/dL
[2020-05-23 19:58] LABS: HEMOGLOBIN A1c% 7.2 % (4.27-6.07)
== END 2020-05-23 23:59 | disposition home or self-care (01) ==
LOC: LAB 08:00
PROVIDERS: ATTEND Family Medicine
DX: N31.9 Neuromuscular dysfunction of bladder, unspecified (principal); G47.33 Obstructive sleep apnea (adult) (pediatric); E78.1 Pure hyperglyceridemia; I48.0 Paroxysmal atrial fibrillation; I10 Essential (primary) hypertension; E11.42 Type 2 diabetes mellitus with diabetic polyneuropathy; E11.21 Type 2 diabetes mellitus with diabetic nephropathy
CPT/HCPCS: 36415; 80053; 80061; 83036; 83721; 84443

== ENCOUNTER 2020-05-24 15:33 | Emergency (ER) | payer MEDICARE, OTHER ==
--- NOTE | 2020-05-24 15:46 | ED Physician Documentation ---
PD HPI ABD PAIN - Stated complaint Stated Complaint: CONSTIPATED - Chief complaint Chief Complaint: Abd Pain - History obtained from History obtained from: Patient - History of Present Illness Timing - onset: How many days ago (2-3 days of lower abd fullness, cramping pain. He states no BM for 2 days, which is not that unusual. But was small and firm at that time, and he is not sure how long prior to that for BM. Having feeling of bladder fullness at times too, despite ongoing ortiz catheter.) Quality: Cramping, Aching, Fullness/distended (lower abed), Pain Location: Periumbilical, Suprapubic, LLQ Radiation: Left shoulder. No: Chest, Lower back Improved by: BM. No: Eating Worsened by: Eating Associated symptoms: Nausea, Constipation. No: Fever, Vomiting, Diarrhea, Melena Similar symptoms before: No diagnosis (has felt similar fullness/cramps with constipation in the past.) Recently seen: Clinic (went to [facility] earlier today with c/w lower abd cramping and suspicion for constipation. Told to take Mag Citrate, which he did, but no BM and has feeling of increased cramps. Some nausea.) Review of Systems Constitutional: denies: Fever, Chills Nose: denies: Rhinorrhea / runny nose, Congestion Throat: denies: Sore throat Respiratory: denies: Cough GI: reports: Abdominal Pain, Abdominal Swelling, Nausea, Constipation. denies: Vomiting, Diarrhea, Bloody / black stool : reports: Ortiz Problem (he says it feels like ortiz does not empty well at times, and associates suprapubic fullness with less urine output, more so when he feels fullness rectal/pelvic area that he thinks is constipation.). denies: Dysuria, Frequency Musculoskeletal: denies: Neck pain, Back pain Neurologic: reports: Generalized weakness. denies: Focal weakness, Numbness, Near syncope PD PAST MEDICAL HISTORY - Past Medical History Cardiovascular: Hypertension, High cholesterol, Atrial fibrillation Endocrine/Autoimmune: Type 2 diabetes : Indwelling catheter, Frequency - Past Surgical History Past Surgical History: Yes General: Other Ortho: Knee replacement - Present Medications Home Medications: Ambulatory Orders Medication Instructions Recorded Confirmed Apixaban [Eliquis] 5 mg PO BID 06/24/19 05/23/20 Budesonide/Formoterol Fumarate 2 puffs PO DAILY PRN 06/24/19 05/23/20 [Symbicort 80-4.5 Mcg Inhaler] Cholecalciferol (Vitamin D3) 200 unit PO DAILY 06/24/19 05/23/20 [Vitamin D3] Docosahexaenoic Acid [Atabex Dha 120 - 180 mg PO DAILY 06/24/19 05/23/20 200] Furosemide [Lasix] 80 mg PO DAILY 06/24/19 05/23/20 Glipizide 15 mg PO BID 06/24/19 05/23/20 Insulin Glargine,Hum.rec.anlog 35 - 45 unit SQ QPM 06/24/19 05/23/20 [[place] Gamez U-100] Multivitamin [Multiple Vitamins] 1 tab PO DAILY 06/24/19 05/23/20 Niacin 50 mg PO DAILY 06/24/19 05/23/20 [place]-3/Dha/Epa/Fish Oil [Fish Oil 1,000 mg PO BID 06/24/19 05/23/20 1,000 mg Softgel] Potassium Chloride 20 meq PO DAILY 06/24/19 05/23/20 Telmisartan 40 mg PO BID 06/24/19 05/23/20 Vitamin B Complex 1 cap PO DAILY 06/24/19 05/23/20 amLODIPine [Norvasc] 10 mg PO DAILY 06/24/19 05/23/20 metFORMIN [Glucophage] 1,000 mg PO QPM 06/24/19 05/23/20 metFORMIN [Glucophage] 1,500 mg PO DAILY 06/24/19 05/23/20 cephALEXin [Keflex] 500 mg PO BID #14 capsule 05/24/20 metroNIDAZOLE [Flagyl] 250 mg PO BID #14 tablet 05/24/20 - Allergies Allergies/Adverse Reactions: Allergies Allergy/AdvReac Type Severity Reaction Status Date / Time Beta-Blockers Allergy Unknown Verified 05/24/20 15:38 (Beta-Adrenergic Bloc pioglitazone [From Actos] Allergy Unknown Verified 05/24/20 15:38 Axqdytb-Hgs-Lgf Reductase AdvReac Unknown Verified 05/24/20 15:38 Inhibitor - Social History Does the pt smoke?: No Smoking Status: Never smoker Does the pt drink ETOH?: Yes Does the pt have substance abuse?: No PD ED PE NORMAL - Vitals Vital signs reviewed: Yes - General General: Alert and oriented X 3, No acute distress, Well developed/nourished - Neck Neck: Supple, no meningeal sign, No adenopathy - Cardiac Cardiac: RRR, No murmur - Respiratory Respiratory: Clear bilaterally - Abdomen Abdomen: Normal bowel sounds, Soft, No organomegaly, Other (some distended with fullness suprapubic area and lower abd. No percussion nor rebound tenderness. has tenderness to palpation suprapubic and LLQ area. ) - Male Male : Other (ortiz in place with normal glans appearance. Ortiz leg bag moderately full with clear yellow urine. ) - Rectal Rectal: Other (external normal without hemorrhoids. Digital exam with minimal stool in vault that is soft. Appears normal brown color. ) - Back Back: No CVA TTP - Derm Derm: Normal color, Warm and dry - Extremities Extremities: Normal ROM s pain, No edema, No calf tenderness / cord - Neuro Neuro: Alert and oriented X 3, No motor deficit, Normal speech Results - Vitals Vitals: Vital Signs - 24 hr 05/24/20 05/24/20 15:38 17:44 Temperature 36.7 C Heart Rate 82 78 Respiratory 18 14 Rate Blood Pressure 156/98 H 148/88 H O2 Saturation 95 95 Oxygen O2 Source Room air - Labs Labs: Laboratory Tests 05/24/20 05/24/20 17:00 17:00 WBC 18.2 H RBC 5.36 Hgb 17.7 Hct 52.9 H MCV 98.7 H MCH 33.0 H MCHC 33.5 RDW 13.9 Plt Count 239 MPV 11.3 Neut # (Auto) 12.4 H Lymph # (Auto) 3.7 H Ada # (Auto) 1.8 H Eos # (Auto) 0.1 Baso # (Auto) 0.1 Absolute Nucleated RBC 0.00 Nucleated RBC % 0.0 Manual Slide Review Indicated WBC Morphology NORMAL APPEARANCE Platelet Estimate NORMAL (130-450,000) Platelet Morphology NORMAL APPEARANCE RBC Morph Micro Appear NORMAL APPEARANCE Sodium 137 Potassium 3.9 Chloride 98 L Carbon Dioxide 26 Anion Gap 13.0 BUN 19 Creatinine 1.0 Estimated GFR (MDRD) 72 L Glucose 136 H Calcium 8.9 Total Bilirubin 0.8 AST 28 ALT 29 Alkaline Phosphatase 86 Total Protein 7.6 Albumin 3.5 Globulin 4.1 Albumin/Globulin Ratio 0.9 L Lipase 21 L - Rads (name of study) abd/pelvic CT Radiology: Prelim report reviewed (fullness of bladder. Sigmoid diverticulitis without perforation/ abscess. ), See rad report PD MEDICAL DECISION MAKING - ED course Complexity details: reviewed results (tender and fullness lower abd. He feels constipated. Got CT which shows sigmoid diverticulitis, uncomplicated. ), re- evaluated patient (Feeling better with some meds. Had some stool out with enema. Otherwise I think his symptoms are referring to lower intestine due to the CT fiding of diverticulitits in sigmoid. He does not seem ill enough to need hospitalization. ), considered differential (older gentleman with abd fullness, lower abd pain, and less BM for few days. He feels he is constipated, but I wou ld be concerned for other process as well. ), d/w patient, other (CT showed full bladder, but he has ortiz in. Exam after CT showed full leg bag. This was emptied and then the bag was filling again, showing good outflow from catheter. Bladder area less full by palpation. Still has feeling of fulness rectally. ) Departure - Departure Disposition: 01 Home, Self Care Clinical Impression: Lower abdominal pain, Sigmoid diverticulitis Condition: Stable Record reviewed to determine appropriate education?: Yes Instructions: ED Diverticulitis Follow-Up: Ganga Aguilar DO [Primary Care Provider] - Prescriptions: metroNIDAZOLE [Flagyl] 250 mg PO BID #14 tablet cephALEXin [Keflex] 500 mg PO BID #14 capsule Comments: Your CT scan showed some diverticulitis in the sigmoid colon which is near the bladder. This may be giving some bladder symptoms of discomfort, and would cause some sludging/slowing of lower intestinal movement, feeling like constipat ion. Your urine catheter does seem to be draining appropriately now at this point. Maintain regular hydration. Continue your stool softener once or twice daily for the next several days to a week. There is not an excessive amount of stool on the CT scan, so you do not need to continue further laxatives/etc to get more stool out. Add metronidazole and cephalexin antibiotics twice daily for a week as directed. Continue your other usual medicines. Add Tylenol if needed for pains. Recheck if not improved well over the next several days and return if worsening. Discharge Date/Time: 05/24/20 17:45
[2020-05-24] MEDS ORDERED: polyethylene glycoL 3350 17 GM PACKET PO STA (16:09)
[2020-05-24] MEDS ORDERED: MINERAL OIL ENEMA 133 ML BOTTLE RC STA (16:09)
[2020-05-24] MEDS ORDERED: IOVERSOL 320 100 ML VIAL IVP ONE ×2 (16:26→16:32)
--- NOTE | 2020-05-24 16:52 | CT Report ---
PROCEDURE: Abdomen/Pelvis W INDICATIONS: LLQ Abdominal pain, diverticulitis suspected CONTRAST: IV CONTRAST: Optiray 320 ml: 100 PO CONTRAST: *NO PO CONTRAST TECHNIQUE: After the administration of IV contrast, 5 mm thick sections acquired from the diaphragms to the symp hysis. 5 mm thick coronal and sagittal reformats were acquired. For radiation dose reduction, the f ollowing was used: automated exposure control, adjustment of mA and/or kV according to patient size. COMPARISON: Ultrasound of abdomen dated 07/04/2019. FINDINGS: Image quality: Excellent. ABDOMEN: Lung bases: Mild bibasilar dependent atelectasis are noted posteriorly. Heart size is enlarged, no pe ricardial effusion. Moderate amount of atherosclerotic disease is seen.. Solid organs: Liver is normal in size and show normal enhancement. Spleen is surgically absent with surgical clips seen in left upper quadrant. Gallbladder from the tiny calcified stone in its dependen t portion. No gallbladder wall thickening or pericholecystic fluid. Biliary system is non dilated. Pancreas enhances normally. 2.8 x 1.6 cm hypodense nodule is seen in left adrenal gland. No right adr enal nodules. Kidneys demonstrate normal size and enhancement, without hydronephrosis. Multiple righ t renal cortical cysts are noted. Peritoneum and bowel: There is no evidence of bowel obstruction. No gastric or small bowel wall thick ening. Extensive sigmoid diverticulosis is seen with suggestion of very mild sigmoid colon wall thick ening and pericolonic fat stranding involving proximal sigmoid colon in left lower quadrant concernin g for early acute diverticulitis in this region. There is no abscess collection. No signs of perforat ion. No free fluid of free air. Nodes and vessels: No retroperitoneal or mesenteric adenopathy by size criteria. Aorta and inferior vena cava are normal in size. Moderate amount of atherosclerotic calcifications or abdominal aorta is seen. Miscellaneous: No ventral hernias. PELVIS: Genitourinary: Bladder wall thickness is normal. Miscellaneous: No inguinal hernias or adenopathy. Bones: No suspicious bony lesions. No vertebral body compression fractures. Degenerative disc dise ase throughout lower thoracic and lumbar spine is seen with prior fusion at L5-S1 level. IMPRESSION: 1. Extensive sigmoid diverticulosis with suggestion of early acute diverticulitis involving proximal to mid sigmoid colon in left lower quadrant. No abscess collection. No gross perforation. No free flu id of free air. 2. Prior splenectomy. Cholelithiasis without evidence of acute cholecystitis. 3. No obstructing renal stone or hydronephrosis. Multiple right renal cysts. 4. Moderate atherosclerotic disease. Reviewed by: Rafita Boothe MD on 05/24/2020 3:50 PM [place] Approved by: Rafita Boothe MD on 05/24/2020 3:50 PM [place] Station ID: [id number]
[2020-05-24] MEDS ORDERED: metroNIDAZOLE 250 MG TABLET PO STA (17:05)
[2020-05-24] MEDS ORDERED: cefTRIAXone 1 GM VIAL IVP STA (17:05)
[2020-05-24 17:06] LABS: BASOPHILS # (AUTO) 0.1 10^3/uL (0.0-0.1); BASOPHILS % (AUTO) 0.5 %; EOSINOPHILS # (AUTO) 0.1 10^3/uL (0.0-0.7); EOSINOPHILS % (AUTO) 0.8 %; HGB - HEMOGLOBIN 17.7 g/dL (14.0-18.0); LYMPHOCYTES # (AUTO) 3.7 10^3/uL (1.5-3.5); LYMPHOCYTES % (AUTO) 20.5 %; MEAN CORPUSCULAR HGB CONC 33.5 g/dL (32.0-36.0); MEAN CORPUSCULAR VOLUME 98.7 fL (80.0-94.0); MEAN PLATELET VOLUME 11.3 fL (7.4-11.4); MONOCYTES # (AUTO) 1.8 10^3/uL (0.0-1.0); NEUTROPHILS # (AUTO) 12.4 10^3/uL (1.5-6.6); NEUTROPHILS % (AUTO) 67.9 %; PLT - PLATELET COUNT 239 10^3/uL (130-450); RED BLOOD COUNT 5.36 10^6/uL (4.70-6.10); RED CELL DISTRIBUTION WIDTH 13.9 % (12.0-15.0); WHITE BLOOD COUNT 18.2 x10^3/uL (4.8-10.8)
[2020-05-24 17:20] LABS: PLATELET ESTIMATE, MANUAL NORMAL (130-450,000) (NORMAL); PLATELET MORPHOLOGY NORMAL APPEARANCE (NORMAL); RBC MORPHOLOGY (MULTIPLE) NORMAL APPEARANCE (NORMAL)
[2020-05-24 17:22] LABS: ALBUMIN 3.5 g/dL (3.2-5.5); ALBUMIN/GLOBULIN RATIO 0.9 (1.0-2.2); BILIRUBIN,TOTAL 0.8 mg/dL (0.2-1.0); CALCIUM 8.9 mg/dL (8.5-10.3); TOTAL PROTEIN 7.6 g/dL (6.7-8.2)
[2020-05-24 17:45] VITALS: BP 148/88
== END 2020-05-24 17:45 | disposition home or self-care (01) ==
LOC: ED 15:33
DX: K57.32 Diverticulitis of large intestine without perforation or abscess without bleeding (principal); K80.20 Calculus of gallbladder without cholecystitis without obstruction; N28.1 Cyst of kidney, acquired; Z90.81 Acquired absence of spleen; I48.91 Unspecified atrial fibrillation; Z79.01 Long term (current) use of anticoagulants; I10 Essential (primary) hypertension; E11.9 Type 2 diabetes mellitus without complications; Z79.4 Long term (current) use of insulin
CPT/HCPCS: 36415; 74177; 80053; 83690; 85025; 96374; 99284; A9270; Q9967

== ENCOUNTER 2020-05-26 00:41 | Outpatient (CLI) | payer MEDICARE, OTHER | END 2020-05-26 00:42 | disposition critical access hospital (66) | LOC: EMS 00:41 | PROVIDERS: ATTEND Surgery | DX: R10.9 Unspecified abdominal pain (principal) | CPT/HCPCS: A0425; A0429 ==

== ENCOUNTER 2020-05-26 00:57 | Inpatient (IN) | payer MEDICARE, OTHER ==
--- NOTE | 2020-05-26 01:06 | ED Physician Documentation ---
PD HPI ABD PAIN - Stated complaint Stated Complaint: ABD PX - Chief complaint Chief Complaint: Abd Pain - History obtained from History obtained from: Patient - History of Present Illness Timing - onset: How many days ago (2-3) Timing - duration: Days Timing - details: Gradual onset, Constant, Waxing and waning Pain level now: 8 Quality: Pain Location: LLQ Radiation: Other (does not radiate) Improved by: Other (no ameliorating factors) Worsened by: Palpation Associated symptoms: No: Fever, Nausea, Vomiting, Diarrhea Similar symptoms before: Diagnosis (diverticulitis) Recently seen: Emergency Dept - Additional information Additional information: T+R from this ED 05/24/20 for diverticulitis, prescribed keflex and flagyl. he returns due to steadily worsening LLQ pain. he also notes the urine that is emptying into his catheter bag (he has indwelling ortiz catheter) has become cloudy over past 1-2 days. he says he recently finished a course of an antibiotic that had been prescribed for a UTI Review of Systems Constitutional: denies: Fever, Chills, Sweats Nose: reports: Reviewed and negative Throat: reports: Reviewed and negative Cardiac: reports: Reviewed and negative Respiratory: reports: Reviewed and negative GI: reports: Abdominal Pain. denies: Abdominal Swelling, Nausea, Vomiting, Diarrhea, Hematemesis, Bloody / black stool : reports: Other (cloudy urine output into his ortiz catheter bag) Skin: reports: Reviewed and negative Musculoskeletal: reports: Reviewed and negative Neurologic: reports: Reviewed and negative PD PAST MEDICAL HISTORY - Past Medical History Cardiovascular: Hypertension, High cholesterol, Atrial fibrillation Endocrine/Autoimmune: Type 2 diabetes : Indwelling catheter, Frequency - Past Surgical History Past Surgical History: Yes General: Other Ortho: Knee replacement - Present Medications Home Medications: Ambulatory Orders Medication Instructions Recorded Confirmed Apixaban [Eliquis] 5 mg PO BID 06/24/19 05/26/20 Budesonide/Formoterol Fumarate 2 puffs PO DAILY PRN 06/24/19 05/26/20 [Symbicort 80-4.5 Mcg Inhaler] Cholecalciferol (Vitamin D3) 200 unit PO DAILY 06/24/19 05/26/20 [Vitamin D3] Docosahexaenoic Acid [Atabex Dha 120 - 180 mg PO DAILY 06/24/19 05/26/20 200] Furosemide [Lasix] 80 mg PO DAILY 06/24/19 05/26/20 Glipizide 15 mg PO BID 06/24/19 05/26/20 Insulin Glargine,Hum.rec.anlog 35 - 45 unit SQ QPM 06/24/19 05/26/20 [Mahendraaglsavannah Gamez U-100] Multivitamin [Multiple Vitamins] 1 tab PO DAILY 06/24/19 05/26/20 Niacin 50 mg PO DAILY 06/24/19 05/26/20 [place]-3/Dha/Epa/Fish Oil [Fish Oil 1,000 mg PO BID 06/24/19 05/26/20 1,000 mg Softgel] Potassium Chloride 20 meq PO DAILY 06/24/19 05/26/20 Telmisartan 40 mg PO BID 06/24/19 05/26/20 Vitamin B Complex 1 cap PO DAILY 06/24/19 05/26/20 amLODIPine [Norvasc] 10 mg PO DAILY 06/24/19 05/26/20 metFORMIN [Glucophage] 1,000 mg PO QPM 06/24/19 05/26/20 metFORMIN [Glucophage] 1,500 mg PO DAILY 06/24/19 05/26/20 cephALEXin [Keflex] 500 mg PO BID #14 capsule 05/24/20 05/26/20 metroNIDAZOLE [Flagyl] 250 mg PO BID #14 tablet 05/24/20 05/26/20 - Allergies Allergies/Adverse Reactions: Allergies Allergy/AdvReac Type Severity Reaction Status Date / Time Beta-Blockers Allergy Unknown Verified 05/26/20 01:08 (Beta-Adrenergic Bloc pioglitazone [From Actos] Allergy Unknown Verified 05/26/20 01:08 Dlwiplh-Gpu-Gaw Reductase AdvReac Unknown Verified 05/26/20 01:08 Inhibitor - Social History Does the pt smoke?: No Smoking Status: Never smoker Does the pt drink ETOH?: Yes Does the pt have substance abuse?: No - Immunizations Immunizations are current?: Yes PD ED PE NORMAL - Vitals Vital signs reviewed: Yes - General General: Alert and oriented X 3, No acute distress, Other (obese) - Cardiac Cardiac: No murmur - Respiratory Respiratory: No respiratory distress, Clear bilaterally - Abdomen Abdomen: Soft, Non distended, Other (mild-moderate LLQ tenderness ) - Back Back: No CVA TTP - Derm Derm: No rash - Extremities Extremities: No edema - Neuro Neuro: Alert and oriented X 3 - Free text exam Free text exam: urine in catheter bag is yellow, markedly cloudy PD ED PE EXPANDED - Cardiac Cardiac: Irregularly irregular Results - Vitals Vitals: Vital Signs - 24 hr 05/26/20 05/26/20 05/26/20 00:54 01:26 01:53 Temperature 37.1 C Heart Rate 76 84 98 Respiratory 18 16 27 H Rate Blood Pressure 168/105 H 168/105 H 149/83 H O2 Saturation 96 94 95 Oxygen O2 Source Room air - Labs Labs: Laboratory Tests 05/26/20 05/26/20 05/26/20 01:12 01:22 01:22 WBC 19.7 H RBC 5.30 Hgb 17.6 Hct 52.4 H MCV 98.9 H MCH 33.2 H MCHC 33.6 RDW 13.6 Plt Count 281 MPV 11.4 Neut # (Auto) INJECTION MOLDING TECHNICIAN Lymph # (Auto) INJECTION MOLDING TECHNICIAN Stevens # (Auto) INJECTION MOLDING TECHNICIAN Eos # (Auto) INJECTION MOLDING TECHNICIAN Baso # (Auto) INJECTION MOLDING TECHNICIAN Absolute Nucleated RBC INJECTION MOLDING TECHNICIAN Total Counted 100 Band Neuts % (Manual) 0 Reactive Lymphs % (Man) 10 Abnorm Lymph % (Manual) 0 Nucleated RBC % INJECTION MOLDING TECHNICIAN Neutrophils # (Manual) 9.3 H Lymphocytes # (Manual) 6.7 H Monocytes # (Manual) 3.3 H Eosinophils # (Manual) 0.4 Basophils # (Manual) 0.0 Differential Comment MANUAL DIFFERENTIAL Platelet Estimate NORMAL (130-450,000) RBC Morph Micro Appear NORMAL APPEARANCE Sodium 135 Potassium 3.5 Chloride 100 L Carbon Dioxide 22 Anion Gap 13.0 BUN 26 H Creatinine 1.6 H Estimated GFR (MDRD) 42 L Glucose 202 H Calcium 8.9 Total Bilirubin 1.0 AST 38 ALT 30 Alkaline Phosphatase 95 Total Protein 7.7 Albumin 3.7 Globulin 4.0 Albumin/Globulin Ratio 0.9 L Lipase 25 Urine Color YELLOW Urine Clarity HAZY Urine pH 6.0 Ur Specific [place] 1.015 Urine Protein 30 H Urine Glucose (UA) 250 H Urine Ketones NEGATIVE Urine Occult Blood LARGE H Urine Nitrite POSITIVE H Urine Bilirubin NEGATIVE Urine Urobilinogen 0.2 (NORMAL) Ur Leukocyte Esterase LARGE H Urine RBC 6-10 H Urine WBC >25 H Ur Squamous Epith Cells FEW Squamous Urine Bacteria Few Ur Microscopic Review INDICATED Urine Culture Comments INDICATED Nasal Adenovirus (PCR) Nasal B. parapertussis DNA (PCR) Nasal Coronavir 229E PCR Nasal Coronavir HKU1 PCR Nasal Coronavir NL63 PCR Nasal Coronavir OC43 PCR Nasal Enterovir/Rhinovir PCR Nasal Influenza B PCR Nasal Influenza A PCR Nasal Parainfluen 1 PCR Nasal Parainfluen 2 PCR Nasal Parainfluen 3 PCR Nasal Parainfluen 4 PCR Nasal RSV (PCR) Nasal B.pertussis DNA PCR Nasal C.pneumoniae (PCR) Jono Human Metapneumo PCR Nasal M.pneumoniae (PCR) Nasal SARS-CoV-2 (PCR) 05/26/20 02:00 WBC RBC Hgb Hct MCV MCH MCHC RDW Plt Count MPV Neut # (Auto) Lymph # (Auto) Stevens # (Auto) Eos # (Auto) Baso # (Auto) Absolute Nucleated RBC Total Counted Band Neuts % (Manual) Reactive Lymphs % (Man) Abnorm Lymph % (Manual) Nucleated RBC % Neutrophils # (Manual) Lymphocytes # (Manual) Monocytes # (Manual) Eosinophils # (Manual) Basophils # (Manual) Differential Comment Platelet Estimate RBC Morph Micro Appear Sodium Potassium Chloride Carbon Dioxide Anion Gap BUN Creatinine Estimated GFR (MDRD) Glucose Calcium Total Bilirubin AST ALT Alkaline Phosphatase Total Protein Albumin Globulin Albumin/Globulin Ratio Lipase Urine Color Urine Clarity Urine pH Ur Specific [place] Urine Protein Urine Glucose (UA) Urine Ketones Urine Occult Blood Urine Nitrite Urine Bilirubin Urine Urobilinogen Ur Leukocyte Esterase Urine RBC Urine WBC Ur Squamous Epith Cells Urine Bacteria Ur Microscopic Review Urine Culture Comments Nasal Adenovirus (PCR) NOT DETECTED Nasal B. parapertussis DNA (PCR) NOT DETECTED Nasal Coronavir 229E PCR NOT DETECTED Nasal Coronavir HKU1 PCR NOT DETECTED Nasal Coronavir NL63 PCR NOT DETECTED Nasal Coronavir OC43 PCR NOT DETECTED Nasal Enterovir/Rhinovir PCR NOT DETECTED Nasal Influenza B PCR NOT DETECTED Nasal Influenza A PCR NOT DETECTED Nasal Parainfluen 1 PCR NOT DETECTED Nasal Parainfluen 2 PCR NOT DETECTED Nasal Parainfluen 3 PCR NOT DETECTED Nasal Parainfluen 4 PCR NOT DETECTED Nasal RSV (PCR) NOT DETECTED Nasal B.pertussis DNA PCR NOT DETECTED Nasal C.pneumoniae (PCR) NOT DETECTED Jono Human Metapneumo PCR NOT DETECTED Nasal M.pneumoniae (PCR) NOT DETECTED Nasal SARS-CoV-2 (PCR) NOT DETECTED PD MEDICAL DECISION MAKING - ED course Complexity details: reviewed old records, reviewed results, re-evaluated patient, considered differential, d/w patient ED course: patient c/o worsening LLQ pain since being discharged 05/[address] after [address] A/P showed early sigmoid diverticulitis. He says he has not had this diagnosis (diverticulitis) before. He also has cloudy urine which he says is not normal for him, onset 1-2 days ago. His WBC is mildly elevated from previous result. He has h/o splenectomy. UA is c/w UTI. His creatinine was 1.0 when discharged 05/24 and tonight it is 1.6. His baseline creatinine has been consistently WNL. Plan is admission for IV hydration, IV antibiotics, and consideration of reimaging if indicated provided his renal function does not worsen Departure - Departure Disposition: 66 [facility] DC/Xfer Clinical Impression: Sigmoid diverticulitis, Acute kidney injury Urinary tract infection Qualifiers: Urinary tract infection type: catheter-associated UTI Indwelling urinary catheter type: cystostomy catheter Encounter type: initial encounter Qualified Code(s): T83.510A - Infection and inflammatory reaction due to cystostomy catheter, initial encounter Condition: Good Discharge Date/Time: 05/26/20 02:55
[2020-05-26 01:26] LABS: BASOPHILS % (AUTO) 0.4 %; EOSINOPHILS % (AUTO) 2.4 %; HGB - HEMOGLOBIN 17.6 g/dL (14.0-18.0); LYMPHOCYTES % (AUTO) 24.3 %; MEAN CORPUSCULAR HEMOGLOBIN 33.2 pg (27.0-31.0); MEAN CORPUSCULAR HGB CONC 33.6 g/dL (32.0-36.0); MEAN CORPUSCULAR VOLUME 98.9 fL (80.0-94.0); MEAN PLATELET VOLUME 11.4 fL (7.4-11.4); MONOCYTES % (AUTO) 11.9 %; NEUTROPHILS % (AUTO) 60.6 %; PLT - PLATELET COUNT 281 10^3/uL (130-450); RED CELL DISTRIBUTION WIDTH 13.6 % (12.0-15.0); WHITE BLOOD COUNT 19.7 x10^3/uL (4.8-10.8)
[2020-05-26 01:28] LABS: BILIRUBIN,URINE NEGATIVE (NEGATIVE); GLUCOSE, URINE (UA) 250 mg/dL (NEGATIVE); KETONES,URINE (UA) NEGATIVE (NEGATIVE); LEUKOCYTE ESTERASE, URINE LARGE (NEGATIVE); NITRITE,URINE POSITIVE (NEGATIVE); OCCULT BLOOD,URINE LARGE (NEGATIVE); PROTEIN,URINE 30 mg/dL (NEGATIVE); UROBILINOGEN,URINE 0.2 (NORMAL) E.U./dL (NORMAL)
[2020-05-26 01:32] LABS: CLARITY,URINE HAZY (CLEAR)
[2020-05-26 01:36] LABS: BACTERIA,URINE Few /HPF (None Seen); SQUAMOUS EPITHELIAL CELL,UR FEW Squamous (<= Few)
[2020-05-26 01:37] LABS: ALBUMIN 3.7 g/dL (3.2-5.5); ALBUMIN/GLOBULIN RATIO 0.9 (1.0-2.2); CALCIUM 8.9 mg/dL (8.5-10.3); CREATININE 1.6 mg/dL (0.6-1.2); TOTAL PROTEIN 7.7 g/dL (6.7-8.2)
[2020-05-26 01:58] LABS: ABNORMAL LYMPHS % (MANUAL) 0 %; BAND NEUTROPHILS % (MANUAL) 0 %
[2020-05-26 01:59] LABS: DIFFERENTIAL COMMENT MANUAL DIFFERENTIAL; EOSINOPHILS # (MANUAL) 0.4 10^3/uL (0-0.7); LYMPHOCYTES # (MANUAL) 6.7 10^3/uL (1.5-3.5); LYMPHOCYTES % (MANUAL) 24 %; MONOCYTES # (MANUAL) 3.3 10^3/uL (0.0-1.0); PLATELET ESTIMATE, MANUAL NORMAL (130-450,000) (NORMAL); RBC MORPHOLOGY (MULTIPLE) NORMAL APPEARANCE (NORMAL)
[2020-05-26] MEDS ORDERED: ACETAMINOPHEN 325 MG TABLET PO PRN (02:09)
[2020-05-26] MEDS ORDERED: ONDANSETRON 4 MG/2 ML VIAL IVP PRN (02:09)
[2020-05-26] MEDS ORDERED: SODIUM CHLORIDE FLUSH 0.9% 10 ML SYRINGE IVP PRN (02:09)
[2020-05-26] MEDS ORDERED: SODIUM CHLORIDE 0.9% 500 ML IV STA (02:18)
[2020-05-26] MEDS ORDERED: MORPHINE 2 MG/ML CARPUJECT IVP STA (02:18)
--- NOTE | 2020-05-26 02:34 | HISTORY & PHYSICAL EXAMINATION ---
Chief Complaint - Chief Complaint Chief Complaint: Abdominal pain History of Present Illness - Admitted From Admitted From:: Home - History Obtained From Records Reviewed: Yes History obtained from: Patient, ER Physician, EMR - History of Present Illness HPI Comment/Other: This is a 80-year-old male with a past medical history significant for chronic atrial fibrillation on Eliquis, insulin-dependent diabetes mellitus, polycythemia, chronic leukocytosis, chronic indwelling Tiwari catheter who presents today complaining of worsening abdominal pain. He states this has been going on now for a few days. He was seen in the emergency department about 2 days ago and diagnosed with diverticulitis. He has since been on Keflex and Flagyl. Despite antibiotics, his pain is worse and is about a 9 out of 10. It is located over the suprapubic and left lower quadrant region. He states he was diagnosed with a urinary tract infection a few weeks ago during his last Tiwari catheter change. He completed a course of antibiotics last time although he ca nnot recall which one he took. He follows with urology at [facility] and normally changes his catheter once a month with the last change being a couple of weeks ago. He reports no nausea or vomiting. Denies any diarrhea. He thought he was constipated a few days ago but has since had a bowel movement. Denies any fevers, chills. Reports no chest pain, dyspnea. He did have a colonoscopy quite a few years ago and to his knowledge this was unremarkable. In the emergency department, he was found to be hemodynamically stable. Labs revealed a persistent leukocytosis. His creatinine had increased from 1.0 to 1.6. His urinalysis did review did reveal pyuria, leukocyte esterase, nitrites and few bacteria. Given the above findings, medicine was consulted for admission. I did discuss goals of care with the patient and he would like to be a full code. History - Past Medical History Cardiovascular: reports: Hypertension, High cholesterol, Atrial fibrillation Endocrine/Autoimmune: reports: Type 2 diabetes GI: reports: Diverticulitis : reports: Indwelling catheter, Frequency MRSA Hx?: No - Past Surgical History General: reports: Other Ortho: reports: Knee replacement - Family & Social History Family History: Mother: , CAD, Father: Family History Comment/Other: Reports his father from coronary artery disease in his late 40s. His mother also had heart disease. Living arrangement: At home Living Situation: Alone Social History Notes: He lives at home by himself. 2 years ago due to pancreatic cancer. His daughter lives just down the street. Denies smoking and alcohol use. 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 - POLST Patient has POLST: No Meds/Allgy - Home Medications Home Medications: Ambulatory Orders Medication Instructions Recorded Confirmed Apixaban [Eliquis] 5 mg PO BID 06/24/19 05/26/20 Budesonide/Formoterol Fumarate 2 puffs PO DAILY PRN 06/24/19 05/26/20 [Symbicort 80-4.5 Mcg Inhaler] Cholecalciferol (Vitamin D3) 200 unit PO DAILY 06/24/19 05/26/20 [Vitamin D3] Docosahexaenoic Acid [Atabex Dha 120 - 180 mg PO DAILY 06/24/19 05/26/20 200] Furosemide [Lasix] 80 mg PO DAILY 06/24/19 05/26/20 Glipizide 15 mg PO BID 06/24/19 05/26/20 Insulin Glargine,Hum.rec.anlog 35 - 45 unit SQ QPM 06/24/19 05/26/20 [Mahendraaglsavannah Gamez U-100] Multivitamin [Multiple Vitamins] 1 tab PO DAILY 06/24/19 05/26/20 Niacin 50 mg PO DAILY 06/24/19 05/26/20 [place]-3/Dha/Epa/Fish Oil [Fish Oil 1,000 mg PO BID 06/24/19 05/26/20 1,000 mg Softgel] Potassium Chloride 20 meq PO DAILY 06/24/19 05/26/20 Telmisartan 40 mg PO BID 06/24/19 05/26/20 Vitamin B Complex 1 cap PO DAILY 06/24/19 05/26/20 amLODIPine [Norvasc] 10 mg PO DAILY 06/24/19 05/26/20 metFORMIN [Glucophage] 1,000 mg PO QPM 06/24/19 05/26/20 metFORMIN [Glucophage] 1,500 mg PO DAILY 06/24/19 05/26/20 cephALEXin [Keflex] 500 mg PO BID #14 capsule 05/24/20 05/26/20 metroNIDAZOLE [Flagyl] 250 mg PO BID #14 tablet 05/24/20 05/26/20 - Allergies Allergies/Adverse Reactions: Allergies Allergy/AdvReac Type Severity Reaction Status Date / Time Beta-Blockers Allergy Unknown Verified 05/26/20 01:08 (Beta-Adrenergic Bloc pioglitazone [From Actos] Allergy Unknown Verified 05/26/20 01:08 Yqbytqf-Kik-Ozl Reductase AdvReac Unknown Verified 05/26/20 01:08 Inhibitor Review of Systems - Constitutional Constitutional: denies: Fatigue, Fever, Chills, Malaise, Poor appetite - Ears, Nose & Throat Ears, Nose & Throat: denies: Nasal discharge, Nasal congestion, Sore throat - Cardiovascular Cariovascular: reports: Edema. denies: Chest pain, Lightheadedness, Exertional dyspnea, Decr. exercise tolerance - Respiratory Respiratory: denies: Cough, SOB at rest, SOB with exertion - Gastrointestinal Gastrointestinal: reports: Abdominal pain, Constipation. denies: Diarrhea, Rectal bleeding, Bloody stools, Nausea, Vomiting - Genitourinary Genitourinary: denies: Dysuria, Frequency, Hematuria - Musculoskeletal Musculoskeletal: reports: Back pain - Neurological Neurological: denies: General weakness, Focal weakness, Dizziness - Hematologic/Lymphatic Hematologic/Lymphatic: denies: Bruising, Bleeding tendencies - All Other Systems All Other Systems: reports: Reviewed and negative Prior Level of Functionality: He is independent with his ADL's. Exam - Vital Signs Reviewed Vital Signs: Yes Vital Signs: Vital Signs x48h Temp Pulse Resp BP Pulse Ox 05/26/20 02:26 98 15 159/93 H 96 05/26/20 01:53 98 27 H 149/83 H 95 05/26/20 01:26 84 16 168/105 H 94 05/26/20 00:54 37.1 C 76 18 168/105 H 96 - Physical Exam General Appearance: positive: No acute distress, Alert Eyes Bilateral: positive: Normal inspection, Conjunctivae nml ENT: positive: ENT inspection nml Neck: positive: Nml inspection Respiratory: positive: No respiratory distress. negative: Wheezes, Rales Cardiovascular: positive: Irregularly irregular. negative: Regular rate & rhythm, Tachycardia, Systolic murmur Abdomen: positive: Nml bowel sounds, No distention, Tenderness (Suprapubic and left lower quadrant region). negative: Guarding, Rebound Rectal: positive: Other (Tiwari catheter in place.) Skin: positive: Warm, Dry Extremities: positive: Pedal edema (+1 pitting edema in bilateral lower extremities.) Neurologic/Psychiatric: positive: Oriented x3, Motor nml Conclusion/Plan - Problem List (1) Sigmoid diverticulitis Conclusion/Plan: This was evident on the CT of the abdomen pelvis completed 2 days ago. He has had worsening pain despite initiation of antibiotics. His white count is increased but he does have a chronic leukocytosis. We will place him on ciprofloxacin and Flagyl IV. N.p.o. for time being but would like to advance his diet to clear liquid diet hopefully later this afternoon. IV hydration with lactated Ringer's. Morphine IV as needed for pain. Zofran as needed for nausea. (2) Catheter-associated urinary tract infection Conclusion/Plan: Urinalysis was obtained given suprapubic pain and this does reveal pyuria, few bacteria, esterase, nitrites. He reports completing a course of antibiotics a couple weeks ago for urinary tract infection. At this point in time, it is unclear this is a true infection or possibly colonization. He will be on ciprofloxacin either way given the diverticulitis. We will follow up his urine cultures. Qualifiers: Indwelling urinary catheter type: indwelling urethral catheter Encounter type: initial encounter Qualified Code(s): T83.511A - Infection and inflammatory reaction due to indwelling urethral catheter, initial encounter; N39.0 - Urinary tract infection, site not specified (3) Acute kidney injury Conclusion/Plan: His creatinine is elevated at 1.6. This is likely prerenal injury given poor oral intake due to his abdominal pain. We will give him a liter of lactated Ringer's and continue him on IV hydration. We will hold his home angiotensin receptor swati. Avoid nephrotoxins. Repeat BMP and monitor urine output. (4) Chronic atrial fibrillation Conclusion/Plan: He is currently rate controlled. He does not appear to be on any AV dot blocking agents at home. He is on Eliquis which we will hold for the time being given his acute kidney injury and in case he will need any potential surgical intervention. (5) Insulin dependent diabetes mellitus Conclusion/Plan: We will continue his home Lantus at half dose while he is n.p.o. N.p.o. for time being bolused advance his diet later this afternoon. (6) Polycythemia Conclusion/Plan: This is chronic and stable. He follows with Dr. Rangel of Hematology. He has been receiving phlebotomy as needed. We will continue to monitor during this hospitalization. - Lab Results Lab results reviewed: Yes Erik Bones: 05/26/20 04:05 05/26/20 04:05 - Diagnostic Imaging Results Diagnostic Imaging Results: positive: Final report reviewed Core Measures - Anticipated LOS I expect patient to be DC'd or transferred within 96 hours.: Yes - Issues Hospital Issues and Management Plan: 80-year-old male who presents with worsening abdominal pain after being diagnosed with diverticulitis a couple of days ago. Will admit for IV antibiotics given he failed outpatient treatment. Possible catheter associated urinary tract infection as well. - DVT/VTE - Prophylaxis VTE/DVT Device ordered at admit?: Yes VTE/DVT Prophylaxis med ordered at admit?: No
[2020-05-26] MEDS ORDERED: LACTATED RINGERS 1,000 ML IV ONE (02:35)
[2020-05-26] MEDS ORDERED: CIPROFLOXACIN 400 MG/200 ML 400 MG/200 ML BAG IV SCH (03:00)
[2020-05-26] MEDS ORDERED: metroNIDAZOLE 500 MG/100 ML 500 MG/100 ML BAG IV SCH (03:00)
[2020-05-26] MEDS ORDERED: LACTATED RINGERS 1,000 ML IV SCH (03:00)
[2020-05-26 03:08] LABS: C. PNEUMONIAE- RESP PCR PANEL NOT DETECTED
[2020-05-26] MEDS ORDERED: MIN OIL/DIMETHICON/COCONUT OIL 92 GM TUBE TOP PRN (03:45)
[2020-05-26] MEDS: CIPROFLOXACIN 400 MG/200 ML 400 MG/200 ML BAG IV SCH ×2 (04:28→16:28)
[2020-05-26] MEDS: MORPHINE 2 MG/ML CARPUJECT IVP PRN ×2 (04:34→06:58)
[2020-05-26] MEDS: metroNIDAZOLE 500 MG/100 ML 500 MG/100 ML BAG IV SCH ×3 (04:39→20:21)
[2020-05-26 05:23] LABS: BASOPHILS % (AUTO) 0.4 %; EOSINOPHILS % (AUTO) 0.8 %; HGB - HEMOGLOBIN 17.1 g/dL (14.0-18.0); MEAN CORPUSCULAR HEMOGLOBIN 33.8 pg (27.0-31.0); MEAN CORPUSCULAR HGB CONC 34.1 g/dL (32.0-36.0); MEAN CORPUSCULAR VOLUME 99.2 fL (80.0-94.0); MEAN PLATELET VOLUME 11.8 fL (7.4-11.4); MONOCYTES % (AUTO) 11.9 %; NEUTROPHILS % (AUTO) 70.5 %; PLT - PLATELET COUNT 266 10^3/uL (130-450); RED BLOOD COUNT 5.06 10^6/uL (4.70-6.10); RED CELL DISTRIBUTION WIDTH 13.6 % (12.0-15.0); WHITE BLOOD COUNT 17.8 x10^3/uL (4.8-10.8)
[2020-05-26 05:43] LABS: CALCIUM 8.5 mg/dL (8.5-10.3); CREATININE 1.8 mg/dL (0.6-1.2); MAGNESIUM 2.9 mg/dL (1.7-2.8)
[2020-05-26 05:44] LABS: ABNORMAL LYMPHS % (MANUAL) 0 %
[2020-05-26 06:07] LABS: BAND NEUTROPHILS % (MANUAL) 3 %; LYMPHOCYTES # (MANUAL) 2.7 10^3/uL (1.5-3.5); LYMPHOCYTES % (MANUAL) 9 %; MONOCYTES # (MANUAL) 2.1 10^3/uL (0.0-1.0); RBC MORPHOLOGY (MULTIPLE) NORMAL APPEARANCE (NORMAL)
[2020-05-26 06:08] LABS: DIFFERENTIAL COMMENT MANUAL DIFFERENTIAL; PLATELET ESTIMATE, MANUAL NORMAL (130-450,000) (NORMAL)
--- NOTE | 2020-05-26 07:58 | ED Physician Documentation ---
ED Addendum - Addendum Addendum: 05/26/20 07:56 NOTE: under final impression, the catheter-associated UTI incorrectly indicates cystostomy; the catheter is urethral
[2020-05-26] MEDS: SODIUM CHLORIDE FLUSH 0.9% 10 ML SYRINGE IVP SCH ×2 (10:11→17:16)
[2020-05-26] MEDS: LACTATED RINGERS 1,000 ML IV SCH (13:41)
[2020-05-26] MEDS ORDERED: INSULIN GLARGINE 300 UNIT/3 ML PEN SUBQ SCH (21:00)
[2020-05-27] MEDS: SODIUM CHLORIDE FLUSH 0.9% 10 ML SYRINGE IVP SCH ×2 (00:21→09:22)
[2020-05-27] MEDS: metroNIDAZOLE 500 MG/100 ML 500 MG/100 ML BAG IV SCH ×2 (03:46→12:40)
[2020-05-27] MEDS: CIPROFLOXACIN 400 MG/200 ML 400 MG/200 ML BAG IV SCH (03:48)
[2020-05-27 05:08] LABS: BASOPHILS % (AUTO) 0.6 %; EOSINOPHILS % (AUTO) 3.4 %; HGB - HEMOGLOBIN 15.8 g/dL (14.0-18.0); MEAN PLATELET VOLUME 11.9 fL (7.4-11.4); MONOCYTES % (AUTO) 11.4 %; NEUTROPHILS % (AUTO) 43.1 %; PLT - PLATELET COUNT 287 10^3/uL (130-450); RED BLOOD COUNT 4.79 10^6/uL (4.70-6.10); RED CELL DISTRIBUTION WIDTH 13.8 % (12.0-15.0); WHITE BLOOD COUNT 12.6 x10^3/uL (4.8-10.8)
[2020-05-27 05:26] LABS: BAND NEUTROPHILS % (MANUAL) 0 %
[2020-05-27 05:33] LABS: CALCIUM 8.4 mg/dL (8.5-10.3); CREATININE 1.3 mg/dL (0.6-1.2); CRP - C-REACTIVE PROTEIN 9.5 mg/dL (0-1.0); MAGNESIUM 2.2 mg/dL (1.7-2.8)
[2020-05-27 06:06] LABS: ABNORMAL LYMPHS % (MANUAL) 4 %; EOSINOPHILS # (MANUAL) 0.4 10^3/uL (0-0.7); LYMPHOCYTES # (MANUAL) 6.2 10^3/uL (1.5-3.5); LYMPHOCYTES % (MANUAL) 45 %; MONOCYTES # (MANUAL) 0.8 10^3/uL (0.0-1.0)
[2020-05-27 06:07] LABS: DIFFERENTIAL COMMENT MANUAL DIFFERENTIAL; PLATELET ESTIMATE, MANUAL NORMAL (130-450,000) (NORMAL); PLATELET MORPHOLOGY NORMAL APPEARANCE (NORMAL); RBC MORPHOLOGY (MULTIPLE) NORMAL APPEARANCE (NORMAL)
[2020-05-27] MEDS ORDERED: APIXABAN 5 MG TABLET PO SCH (09:00)
[2020-05-27] MEDS: LACTATED RINGERS 1,000 ML IV SCH ×2 (09:22)
[2020-05-27 13:23] LABS: HEMOGLOBIN A1c% 7.3 % (4.27-6.07)
--- NOTE | 2020-05-27 14:31 | Discharge Plan ---
Discharge Plan Problem Reviewed?: Yes Disposition: Home, Self Care Condition: Stable Diet: Diabetic Activity Restrictions: Activity as Tolerated Shower Restrictions: No (fall precaution) Instruction Topics: Diverticulosis Diverticulitis, UTI Health Concerns: your abdominal discomfort and pain was likely caused by your dislocated urinary catheter which caused your over-fluid bladder. You have new urinary catheter which works appropriately now. You may followup with your urologist to check regularly and make sure the correct location of urinary catheter. you may continue to finish your home antibiotics for your diagnosis of diverticulitis in the last your ER visit. Plan of Treatment: as above Care Goals: stabilization and improvement of your medical conditions Assessment: discussed the care plan with you, answered your questions, you understood and agreed Additional Instructions or Follow Up instructions: you may followup with your PCP in one week, followup with your urologist as out- pt. Should your symptoms return or worsen, you may present ER or call 911 for help. No Smoking: If you smoke, Please STOP! Call for help. Follow-up with: Srikanth Bermeo MD [Primary Care Provider] -
[2020-05-27 15:39] VITALS: BP 141/76
--- NOTE | 2020-05-27 15:52 | DISCHARGE SUMMARY ---
Discharge Summary Admit Date: 05/26/20 Discharge Date: 05/27/20 Discharging Provider: Sarthak Valdez Primary Care Provider: Dr. Srikanth Bermeo Condition at Discharge: Stable Discharge Disposition: 01 Home, Self Care Discharge Facility Name: home - DIAGNOSES Discharge Diagnoses with Status of Each Condition: (1)dislocation of chronic indwelling ortiz catheter nurse found pt's ortiz catheter head locate at penis urethral not at bladder, dislocated ortiz catheter, that also explain why his ortiz was leaking urine. pt had new ortiz catheter and had 1.4 liter of urine out. pt immediately felt better after urine released. he report he followup with his urologist to change his ortiz catheter monthly. advise pt make recent visit to urologist and discussed the issue with his urologist and his PCP. pt state he understood and will make the appointment. (2) Sigmoid diverticulitis pt's symptoms resolved. pt tolerated diet without nausea, vomiting or abdominal pain. continue home antibiotics to finish the treatment course. (3) Catheter-associated urinary tract infection his urine cultures show two bacteria, given pt's symptoms free, it is possibly colonization, continue home antibiotics, and followup with his urologist. (4) Acute kidney injury significantly improved. creatinine is 1.3 today, advise pt keep hydration at home, followup with his PCP and urologist continue management. 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 - HPI History of Present Illness: refer from Dr. gleason's HPI on 05/26/20 This is a 80-year-old male with a past medical history significant for chronic atrial fibrillation on Eliquis, insulin-dependent diabetes mellitus, polycythemia, chronic leukocytosis, chronic indwelling Ortiz catheter who presents today complaining of worsening abdominal pain. He states this has been going on now for a few days. He was seen in the emergency department about 2 days ago and diagnosed with diverticulitis. He has since been on Keflex and Flagyl. Despite antibiotics, his pain is worse and is about a 9 out of 10. It is located over the suprapubic and left lower quadrant region. He states he was diagnosed with a urinary tract infection a few weeks ago during his last Ortiz catheter change. He completed a course of antibiotics last time although he cannot recall which one he took. He follows with urology at [facility] and normally changes his catheter once a month with the last change being a couple of weeks ago. He reports no nausea or vomiting. Denies any diarrhea. He thought he was constipated a few days ago but has since had a bowel movement. Denies any fevers, chills. Reports no chest pain, dyspnea. He did have a colonoscopy quite a few years ago and to his knowledge this was unremarkable. In the emergency department, he was found to be hemodynamically stable. Labs revealed a persistent leukocytosis. His creatinine had increased from 1.0 to 1.6. His urinalysis did review did reveal pyuria, leukocyte esterase, nitrites and few bacteria. Given the above findings, medicine was consulted for admission. I did discuss goals of care with the patient and he would like to be a full code. - HOSPITAL COURSE Hospital Course: pt was admitted for lower quadrant abdominal pain and failed antibiotics treatment for out-pt diverticulitis. In pt, nurse found pt had dislocated ortiz catheter. after pt had new ortiz, pt's symptoms immediately released. pt tolerated regular diet without abdominal pain, nausea or vomiting. pt was d/c at stable conditions. - ALLERGIES Allergies/Adverse Reactions: Allergies Allergy/AdvReac Type Severity Reaction Status Date / Time Beta-Blockers Allergy Unknown Verified 05/26/20 01:08 (Beta-Adrenergic Bloc pioglitazone [From Actos] Allergy Unknown Verified 05/26/20 01:08 Wttmxqp-Yqi-Eol Reductase AdvReac Unknown Verified 05/26/20 01:08 Inhibitor - MEDICATIONS Home Medications: Ambulatory Orders Medication Instructions Recorded Confirmed Apixaban [Eliquis] 5 mg PO BID 06/24/19 05/26/20 Budesonide/Formoterol Fumarate 2 puffs PO DAILY PRN 06/24/19 05/26/20 [Symbicort 80-4.5 Mcg Inhaler] Cholecalciferol (Vitamin D3) 200 unit PO DAILY 06/24/19 05/26/20 [Vitamin D3] Docosahexaenoic Acid [Atabex Dha 120 - 180 mg PO DAILY 06/24/19 05/26/20 200] Furosemide [Lasix] 80 mg PO DAILY 06/24/19 05/26/20 Glipizide 15 mg PO BID 06/24/19 05/26/20 Insulin Glargine,Hum.rec.anlog 35 - 45 unit SQ QPM 06/24/19 05/26/20 [Riley Gamez U-100] Multivitamin [Multiple Vitamins] 1 tab PO DAILY 06/24/19 05/26/20 Niacin 50 mg PO DAILY 06/24/19 05/26/20 [place]-3/Dha/Epa/Fish Oil [Fish Oil 1,000 mg PO BID 06/24/19 05/26/20 1,000 mg Softgel] Potassium Chloride 20 meq PO DAILY 06/24/19 05/26/20 Telmisartan 40 mg PO BID 06/24/19 05/26/20 Vitamin B Complex 1 cap PO DAILY 06/24/19 05/26/20 amLODIPine [Norvasc] 10 mg PO DAILY 06/24/19 05/26/20 metFORMIN [Glucophage] 1,000 mg PO QPM 06/24/19 05/26/20 metFORMIN [Glucophage] 1,500 mg PO DAILY 06/24/19 05/26/20 cephALEXin [Keflex] 500 mg PO BID #14 capsule 05/24/20 05/26/20 metroNIDAZOLE [Flagyl] 250 mg PO BID #14 tablet 05/24/20 05/26/20 - PHYSICAL EXAM AT DISCHARGE General Appearance: positive: No acute distress, Alert. negative: Lethargic Eyes Bilateral: positive: Normal inspection, PERRL, No lid inflammation ENT: positive: ENT inspection nml, No signs of dehydration. negative: Purulent nasal drainage Neck: positive: Nml inspection, Trachea midline. negative: Thyromegaly, Tracheal deviation Respiratory: positive: Chest non-tender, No respiratory distress, Breath sounds nml. negative: Wheezes, Rales Cardiovascular: positive: Regular rate & rhythm, No murmur. negative: Tachycardia, Bradycardia, Systolic murmur, Diastolic murmur Peripheral Pulses: positive: 2+ Abdomen: positive: Non-tender, Nml bowel sounds, No distention. negative: Tenderness, Guarding, Rebound Back: positive: Nml inspection. negative: CVA tenderness (R), CVA tenderness (L) Skin: positive: Color nml, Warm, Dry. negative: Cyanosis, Diaphoresis, Pallor Extremities: positive: Non-tender, Full ROM, Nml appearance. negative: Calf tenderness Neurologic/Psychiatric: positive: Oriented x3, Motor nml, Sensation nml, Mood/affect nml. negative: Weakness, Sensory loss, Facial droop, Slurred/abnml speech, Depressed mood/affect - LABS Result Diagrams: 05/27/20 04:02 05/27/20 04:02 - FOLLOW UP Follow Up: your abdominal discomfort and pain was likely caused by your dislocated urinary catheter which caused your over-fluid bladder. You have new urinary catheter which works appropriately now. You may followup with your urologist to check regularly and make sure the correct location of urinary catheter. you may continue to finish your home antibiotics for your diagnosis of diverticulitis in the last your ER visit. you may followup with your PCP in one week, followup with your urologist as out- pt. Should your symptoms return or worsen, you may present ER or call 911 for help. - TIME SPENT Time Spent in Discharge (Minutes): 30
== END 2020-05-27 16:16 | disposition home or self-care (01) | DRG 699 ==
LOC: EDUNIT# → EDBD → ED 00:57 → MS2 02:09
PROVIDERS: ADMIT Internal Medicine; ATTEND Internal Medicine Hematology & Oncology
DX: T83.018A Breakdown (mechanical) of other urinary catheter, initial encounter (principal); K57.32 Diverticulitis of large intestine without perforation or abscess without bleeding; T83.511A Infection and inflammatory reaction due to indwelling urethral catheter, initial encounter; N39.0 Urinary tract infection, site not specified; N17.9 Acute kidney failure, unspecified; I48.20 Chronic atrial fibrillation, unspecified; I48.91 Unspecified atrial fibrillation; R33.8 Other retention of urine; E11.9 Type 2 diabetes mellitus without complications; Z20.822 Contact with and (suspected) exposure to COVID-19; I10 Essential (primary) hypertension; E78.00 Pure hypercholesterolemia, unspecified; D75.1 Secondary polycythemia; D72.829 Elevated white blood cell count, unspecified; R35.0 Frequency of micturition; Z96.659 Presence of unspecified artificial knee joint; Z79.01 Long term (current) use of anticoagulants; Z79.4 Long term (current) use of insulin; Z79.899 Other long term (current) drug therapy; Z90.81 Acquired absence of spleen
CPT/HCPCS: 36415; 80048; 80053; 81001; 83036; 83690; 83735; 85025; 86140; 87077; 87086; 87181; 87631; 99284; 99285; A6250; A9270; J1815; J7120; 0202U; 81003

== ENCOUNTER 2020-05-30 10:51 | Outpatient (CLI) | payer MEDICARE, OTHER ==
--- NOTE | 2020-05-30 11:14 | SLEEP CARE CONSULTATION ---
Information from patient questionnaire entered by Jamaica Crockett. I have reviewed and concur with the information entered by Jamaica Crockett. This document represents the service I personally performed and the decisions made by me, Danilo Lomas MD, [facility]. History of Present Illness Service Date and Time: 05/30/2020 1051 Previous diagnosis: Very Severe, Central Sleep Apnea-Hypopnea Syndrome AHI: 65.8 (in 2014) Reason for follow up: first compliance after device update Equipment type: ASV Equipment obtained from: Other ([employer] - getting supplies as needed) Mask style: Full face Prior sleep studies: Yes Year and Where: 2014 - [facility] in [place], [place] HPI additional information: HPI: Mr. Rawls returned today for follow up of BiPAP ASV therapy. He was diagnosed to have central sleep apnea-hypopnea syndrome. The patient acquired a new BiPAP ASV from [employer] He was fitted with a Respironics DreamWear full face mask. He reports using the device nightly and all through the night. The compliance report shows usage in 49 nights out of the past 50 nights, averaging 10.2 hours a night. The > 4 hour compliance rate for the past 30 days is 96%. He complained of no particular problem with the device such as soreness on the face, dry nose, epistaxis, nasal congestion or headache. He thinks that the BiPAP ASV setting is comfortable (EPAP at 6 cmH2O and pressure support 3 15 cmH2O). On the BiPAP therapy he notices improvement in his sleep quality, and that he wakes up feeling fresher in the morning and more awake/alert during the day. The [place] Sleepiness Scale score 1. The average residual AHI is 0.2; and air leak, 0.7 L/minutes. CPAP Compliance Data - Data Reviewed with Patient Average duration of nightly device use: 9 hr 45 min Compliance rate %: 90 Current pressure setting (cmH2O): 6/3 Humidity settin Average residual AHI: 0.1 Subjective Current pressure setting perceived as: too low Initial [place] Sleepiness Scale score: 4 (in 2019) Current [place] Sleepiness Scale score: 1 Allergies and Home Medications Drug allergies reviewed: Yes Home medication list reviewed: Yes Review of Systems Review of systems same as previous: Yes Physical Exam Vital signs obtained and entered by: To minimize the risk of COVID-19 exposure, detailed exam was not performed. Height: 5 ft 11 in Weight: 266 lb Body Mass Index: 37.0 BMI Classification: Obese Impression and Plan IMPRESSION: 1. Central Sleep Apnea-Hypopnea Syndrome & Cristi-Lang respiration, with the patient doing well on BiPAP ASV therapy. He continues to have excellent compliance and significant clinical improvement. The current pressure appears effective and comfortable. Overall, he is very satisfied with treatment and plans to continue with it long-term. No adjustment is necessary today. PLAN: 1. Continue BiPAP ASV: EPAP min of 6 cmH2O and pressure support between 3 and 15 cmH2O. 2. Try other full face masks, e.g. ResMed AirTouch F-20 full face mask 3. Return in one year for follow up or earlier if there is any problem. Visit Type: In Office Time Spent with Patient (minutes): 15 Provider Statement: I spent 100% of the Face to Face Visit with the patient with greater than 50% spent counseling the patient and coordination of care.
== END 2020-05-30 10:52 | disposition home or self-care (01) ==
LOC: SC 10:51
PROVIDERS: ATTEND Internal Medicine Pulmonary Disease
DX: G47.31 Primary central sleep apnea (principal); E66.9 Obesity, unspecified; Z68.37 Body mass index [BMI] 37.0-37.9, adult
CPT/HCPCS: 99212; G0463

== ENCOUNTER 2020-06-23 08:50 | Day surgery (SDC) | payer MEDICARE, OTHER ==
[2020-06-23 09:18] VITALS: BP 156/95
--- NOTE | 2020-06-23 10:12 | ANESTHESIA PROCEDURE NOTE ---
Anesth Central Line Template - Central Line Central line location: Right Basilic Central line type: Single lumen Central line catheter tip site resides: Superior vena cava (SVC) Central line aftercare: Secured, Placement confirmed, No pneumothorax, No complications, Bundle checklist complete, Pt tolerated well (pt tolerated well. PICC line placed easily. No complications)
--- NOTE | 2020-06-23 10:14 | ANESTHESIA ---
Pre-Anesthesia VS, & Labs - Diagnosis IV access - Procedure PICC line placement Vital Signs: Temp Pulse Resp BP Pulse Ox 36.4 C L 63 17 156/95 H 93 06/23/20 09:17 06/23/20 09:17 06/23/20 09:17 06/23/20 09:17 06/23/20 09:17 Height: 5 ft 11 in Home Medications and Allergies Apixaban [Eliquis] 5 mg PO BID 06/24/19 Budesonide/Formoterol Fumarate [Symbicort 80-4.5 Mcg Inhaler] 2 puffs PO DAILY PRN 06/24/19 Cholecalciferol (Vitamin D3) [Vitamin D3] 200 unit PO DAILY 06/24/19 Docosahexaenoic Acid [Atabex Dha 200] 120 - 180 mg PO DAILY 06/24/19 Furosemide [Lasix] 80 mg PO DAILY 06/24/19 Glipizide 15 mg PO BID 06/24/19 Insulin Glargine,Hum.rec.anlog [[place] Gamez U-100] 35 - 45 unit SQ QPM 06/24/19 Multivitamin [Multiple Vitamins] 1 tab PO DAILY 06/24/19 Niacin 50 mg PO DAILY 06/24/19 [place]-3/Dha/Epa/Fish Oil [Fish Oil 1,000 mg Softgel] 1,000 mg PO BID 06/24/19 Potassium Chloride 20 meq PO DAILY 06/24/19 Telmisartan 40 mg PO BID 06/24/19 Vitamin B Complex 1 cap PO DAILY 06/24/19 amLODIPine [Norvasc] 10 mg PO DAILY 06/24/19 metFORMIN [Glucophage] 1,000 mg PO QPM 06/24/19 metFORMIN [Glucophage] 1,500 mg PO DAILY 06/24/19 Allergies/Adverse Reactions: Allergies Allergy/AdvReac Type Severity Reaction Status Date / Time Beta-Blockers Allergy Unknown Verified 05/26/20 01:08 (Beta-Adrenergic Bloc pioglitazone [From Actos] Allergy Unknown Verified 05/26/20 01:08 Yflrlxl-Gyv-Ydo Reductase AdvReac Unknown Verified 05/26/20 01:08 Inhibitor Anes History & Medical History - Medical History Cardiovascular: reports: Hypertension, High cholesterol, Atrial fibrillation Gastrointestinal: reports: Diverticulitis Urinary: reports: Indwelling catheter, Frequency Endocrine/Autoimmune: reports: Type 2 diabetes Smoking Status: Never smoker - Surgical History General: reports: Other Orthopedic: reports: Knee replacement Exam Dental: WNL Mouth Openin Fingerbreadth Neck Mobility: Normal Mallampati classification: II Thyromental Distance: 4-6 cm Plan Anesthesia Type: MAC Consent for Procedure(s) Verified and Reviewed: Yes Code Status: Attempt Resuscitation ASA classification: 3-Severe systemic disease Is this case an emergency?: No
--- NOTE | 2020-06-23 10:14 | XRAY Report ---
PROCEDURE: Chest for Line Placement INDICATIONS: piic confirmation TECHNIQUE: One view of the chest was acquired. COMPARISON: 08/31/2014 FINDINGS: Surgical changes and devices: Right PICC line with the tip projecting in the upper SVC. Lungs and pleura: No pleural effusions or pneumothorax. Lungs are clear. Mediastinum: Mediastinal contours appear normal. Heart size is normal. Bilateral shoulder joint degeneration. IMPRESSION: Right PICC line with the tip projecting in the upper SVC Reviewed by: Ministerio Brumfield MD on 06/23/2020 10:13 AM PST Approved by: Ministerio Brumfield MD on 06/23/2020 10:13 AM PST Station ID: [id number]
--- NOTE | 2020-06-23 10:29 | CONSULTATION NOTE ---
Consultation Report: PICC line confirmed in SVC by radiology.
== END 2020-06-23 08:51 | disposition home or self-care (01) ==
LOC: SDS 08:50
PROVIDERS: ATTEND Nurse Anesthetist, Certified Registered
DX: D75.1 Secondary polycythemia (principal); I10 Essential (primary) hypertension; I48.91 Unspecified atrial fibrillation; E11.9 Type 2 diabetes mellitus without complications
CPT/HCPCS: 36569; 71045; C1751

== ENCOUNTER 2020-11-01 09:29 | Outpatient (CLI) | payer MEDICARE, OTHER ==
[2020-11-01 12:08] LABS: CALCIUM 9.4 mg/dL (8.5-10.3); POTASSIUM 3.6 mmol/L (3.5-5.0)
[2020-11-01 12:26] LABS: CREATININE,URINE < 13.0 mg/dL; MICROALBUM/CREATININE RATIO,UR 415.4 ug/mg (<30.0); MICROALBUMIN,URINE 5.4 mg/dL (0-300.0)
[2020-11-01 12:32] LABS: ESTIMATED AVERAGE GLUCOSE 189 mg/dL (70-100); HEMOGLOBIN A1c% 8.2 % (4.27-6.07)
== END 2020-11-01 23:59 | disposition home or self-care (01) ==
LOC: LAB.WCP 09:29
PROVIDERS: ATTEND Family Medicine
DX: E11.9 Type 2 diabetes mellitus without complications (principal); Z79.4 Long term (current) use of insulin
CPT/HCPCS: 36415; 80048; 82043; 82570; 83036

== ENCOUNTER 2021-01-10 08:25 | Outpatient (CLI) | payer MEDICARE, OTHER ==
[2021-01-10 12:06] LABS: BASOPHILS % (AUTO) 0.7 %; EOSINOPHILS % (AUTO) 1.3 %; HCT - HEMATOCRIT 54.2 % (42.0-52.0); HGB - HEMOGLOBIN 17.5 g/dL (14.0-18.0); LYMPHOCYTES % (AUTO) 52.2 %; MEAN CORPUSCULAR HEMOGLOBIN 31.4 pg (27.0-31.0); MEAN CORPUSCULAR HGB CONC 32.3 g/dL (32.0-36.0); MEAN CORPUSCULAR VOLUME 97.3 fL (80.0-94.0); MEAN PLATELET VOLUME 11.9 fL (7.4-11.4); MONOCYTES % (AUTO) 8.2 %; NEUTROPHILS % (AUTO) 37.5 %; PLT - PLATELET COUNT 273 10^3/uL (130-450); RED BLOOD COUNT 5.57 10^6/uL (4.70-6.10); RED CELL DISTRIBUTION WIDTH 14.6 % (12.0-15.0); WHITE BLOOD COUNT 10.6 x10^3/uL (4.8-10.8)
[2021-01-10 12:20] LABS: ABNORMAL LYMPHS % (MANUAL) 0 %
[2021-01-10 12:39] LABS: ESTIMATED AVERAGE GLUCOSE 189 mg/dL (70-100); HEMOGLOBIN A1c% 8.2 % (4.27-6.07)
[2021-01-10 12:42] LABS: CHOL/HDL RATIO 7.1 (<5.0); CHOLESTEROL 219 mg/dL; HDL CHOLESTEROL 31 mg/dL; LDL CHOLESTEROL,CALCULATED 118 mg/dL; LDL/HDL RATIO 3.8 (<3.6); TRIGLYCERIDES 351 mg/dL; VLDL CHOLESTEROL 70 mg/dL
[2021-01-10 12:50] LABS: BAND NEUTROPHILS % (MANUAL) 1 %; EOSINOPHILS # (MANUAL) 0.1 10^3/uL (0-0.7); LYMPHOCYTES # (MANUAL) 5.3 10^3/uL (1.5-3.5); LYMPHOCYTES % (MANUAL) 50 %; MONOCYTES # (MANUAL) 0.8 10^3/uL (0.0-1.0); NEUTROPHILS # (MANUAL) 4.3 10^3/uL (1.5-6.6)
[2021-01-10 12:51] LABS: DIFFERENTIAL COMMENT MANUAL DIFFERENTIAL; PLATELET ESTIMATE, MANUAL NORMAL (130-450,000) (NORMAL); PLATELET MORPHOLOGY 1+ GIANT PLATELETS (NORMAL); RBC MORPHOLOGY (MULTIPLE) NORMAL APPEARANCE (NORMAL); WBC MORPHOLOGY (MULTIPLE) NORMAL APPEARANCE (NORMAL)
[2021-01-10 13:12] LABS: THYROID STIMULATING HORMONE 2.65 uIU/mL (0.34-5.60)
== END 2021-01-10 23:59 | disposition home or self-care (01) ==
LOC: LAB.WCP 08:25
PROVIDERS: ATTEND Family Medicine
DX: E66.9 Obesity, unspecified (principal); E11.29 Type 2 diabetes mellitus with other diabetic kidney complication; E11.65 Type 2 diabetes mellitus with hyperglycemia; M48.061 Spinal stenosis, lumbar region without neurogenic claudication; N31.9 Neuromuscular dysfunction of bladder, unspecified; F32.9 Major depressive disorder, single episode, unspecified; E78.5 Hyperlipidemia, unspecified; I25.10 Atherosclerotic heart disease of native coronary artery without angina pectoris
CPT/HCPCS: 36415; 80061; 83036; 83721; 84443; 85025

== ENCOUNTER 2021-01-24 15:15 | Outpatient (CLI) | payer MEDICARE, OTHER ==
[2021-01-26 08:16] LABS: CLARITY,URINE SL. CLOUDY (CLEAR); LEUKOCYTE ESTERASE, URINE TRACE (NEGATIVE)
[2021-01-26 08:17] LABS: NITRITE,URINE NEGATIVE (NEGATIVE); PROTEIN,URINE TRACE mg/dL (NEGATIVE); UROBILINOGEN,URINE 0.2 (NORMAL) E.U./dL (NORMAL)
[2021-01-26 08:19] LABS: BACTERIA,URINE Many /HPF (None Seen); BILIRUBIN,URINE NEGATIVE (NEGATIVE); GLUCOSE, URINE (UA) 500 mg/dL (NEGATIVE); KETONES,URINE (UA) NEGATIVE (NEGATIVE); OCCULT BLOOD,URINE NEGATIVE (NEGATIVE); RBC,URINE 0-5 /HPF (0-5); SQUAMOUS EPITHELIAL CELL,UR FEW Squamous (<= Few)
== END 2021-01-24 23:59 | disposition home or self-care (01) ==
LOC: LAB.WCP 15:15
PROVIDERS: ATTEND Family Medicine
DX: T83.511A Infection and inflammatory reaction due to indwelling urethral catheter, initial encounter (principal); R32 Unspecified urinary incontinence; R10.30 Lower abdominal pain, unspecified
CPT/HCPCS: 81001; 87086

== ENCOUNTER 2021-04-05 07:58 | Outpatient (CLI) | payer MEDICARE, OTHER ==
[2021-04-05 11:51] LABS: BASOPHILS % (AUTO) 0.7 %; EOSINOPHILS % (AUTO) 1.8 %; HCT - HEMATOCRIT 57.3 % (42.0-52.0); LYMPHOCYTES % (AUTO) 57.4 %; MEAN CORPUSCULAR HEMOGLOBIN 31.9 pg (27.0-31.0); MEAN CORPUSCULAR HGB CONC 33.2 g/dL (32.0-36.0); MEAN CORPUSCULAR VOLUME 96.1 fL (80.0-94.0); MEAN PLATELET VOLUME 11.9 fL (7.4-11.4); MONOCYTES % (AUTO) 7.4 %; NEUTROPHILS % (AUTO) 32.5 %; PLT - PLATELET COUNT 251 10^3/uL (130-450); RED BLOOD COUNT 5.96 10^6/uL (4.70-6.10); RED CELL DISTRIBUTION WIDTH 14.3 % (12.0-15.0); WHITE BLOOD COUNT 13.6 x10^3/uL (4.8-10.8)
[2021-04-05 12:38] LABS: BILIRUBIN,TOTAL 1.1 mg/dL (0.2-1.0); CALCIUM 9.5 mg/dL (8.5-10.3); POTASSIUM 3.9 mmol/L (3.5-5.0); TOTAL PROTEIN 7.3 g/dL (6.7-8.2)
[2021-04-05 12:43] LABS: SLIDE REVIEW? Indicated
[2021-04-05 13:11] LABS: PLATELET ESTIMATE, MANUAL NORMAL (130-450,000) (NORMAL); PLATELET MORPHOLOGY NORMAL APPEARANCE (NORMAL); RBC MORPHOLOGY (MULTIPLE) NORMAL APPEARANCE (NORMAL); WBC MORPHOLOGY (MULTIPLE) NORMAL APPEARANCE (NORMAL)
[2021-04-05 13:15] LABS: ABNORMAL LYMPHS % (MANUAL) 0 %; BAND NEUTROPHILS % (MANUAL) 0 %
[2021-04-05 13:21] LABS: DIFFERENTIAL COMMENT MANUAL DIFFERENTIAL; LYMPHOCYTES # (MANUAL) 8.4 10^3/uL (1.5-3.5); LYMPHOCYTES % (MANUAL) 44 %; MONOCYTES # (MANUAL) 0.4 10^3/uL (0.0-1.0); NEUTROPHILS # (MANUAL) 4.8 10^3/uL (1.5-6.6); REACTIVE LYMPHS % (MANUAL) 18 %
[2021-04-05 14:13] LABS: CREATININE,URINE 97.7 mg/dL; MICROALBUMIN,URINE 59.6 mg/dL (0-300.0)
[2021-04-05 14:38] LABS: ALBUMIN 3.9 g/dL (3.2-5.5); ALBUMIN/GLOBULIN RATIO 1.1 (1.0-2.2); CREATININE 0.9 mg/dL (0.6-1.2)
[2021-04-05 20:11] LABS: ESTIMATED AVERAGE GLUCOSE 183 mg/dL (70-100)
== END 2021-04-05 23:59 | disposition home or self-care (01) ==
LOC: LAB.WCP 07:58
PROVIDERS: ATTEND Family Medicine
DX: E66.9 Obesity, unspecified (principal); E11.65 Type 2 diabetes mellitus with hyperglycemia; M48.061 Spinal stenosis, lumbar region without neurogenic claudication; N31.9 Neuromuscular dysfunction of bladder, unspecified; I25.10 Atherosclerotic heart disease of native coronary artery without angina pectoris; E78.5 Hyperlipidemia, unspecified; E11.29 Type 2 diabetes mellitus with other diabetic kidney complication; F32.A Depression, unspecified; E11.42 Type 2 diabetes mellitus with diabetic polyneuropathy; I10 Essential (primary) hypertension; I48.0 Paroxysmal atrial fibrillation; M54.50 Low back pain, unspecified; G89.29 Other chronic pain
CPT/HCPCS: 36415; 80053; 82043; 82570; 83036; 85025

== ENCOUNTER 2021-04-28 15:25 | Outpatient (CLI) | payer MEDICARE, OTHER | END 2021-04-28 15:26 | disposition EMS.NT | LOC: EMS 15:25 | DX: R53.1 Weakness (principal) ==

== ENCOUNTER 2021-04-29 11:32 | Emergency (ER) | payer MEDICARE, OTHER ==
--- NOTE | 2021-04-29 12:00 | ED Physician Documentation ---
PD HPI Fall - Stated complaint Stated Complaint: MALE - Chief complaint Chief Complaint: UTI - History obtained from History obtained from: Patient - History of Present Illness Mechanism of injury: Unknown (he says he was walking with grandson and sudden remembers being on ground. Did not feel lightheaded, nor pains. awoke and felt okay. Onset of hematuria after though, with noted of some blood in his ortiz. Some penile pain. persisting blood in urine today. No abd pain nor headache. Ptconcern of UTI.) Fall distance: Standing position Where injury occurred: Street Timing - onset: Yesterday Injury(ies) location: No: Head, Neck, Chest, Abdomen, Back Associated symptoms: LOC, Other (hematuria). No: AMS, Weakness, Paresthesias Contributing factors: Anticoagulated. No: Intoxicated Recently seen: Clinic (seen at [facility] and referred to ER for concern of kidney injury due to hematuria after fall.), Other (seen in clinic this past week for routine changing of his chronic ortiz. HE states there was some difficulty put ting it in, and had some meatal blood that afternoon that cleared the next day.) Review of Systems Constitutional: denies: Fever, Chills Nose: denies: Rhinorrhea / runny nose, Congestion Throat: denies: Sore throat Respiratory: denies: Cough GI: denies: Abdominal Pain, Nausea, Vomiting, Diarrhea : reports: Hematuria, Other (denies fevers, flank pain.). denies: Discharge Skin: denies: Abrasion (s), Laceration (s) Neurologic: denies: Generalized weakness, Altered mental status, Headache PD PAST MEDICAL HISTORY - Past Medical History Cardiovascular: Hypertension, High cholesterol, Atrial fibrillation Endocrine/Autoimmune: Type 2 diabetes GI: Diverticulitis : Indwelling catheter, Frequency - Past Surgical History Past Surgical History: Yes General: Other Ortho: Knee replacement - Present Medications Home Medications: Ambulatory Orders Medication Instructions Recorded Confirmed Apixaban [Eliquis] 5 mg PO BID 06/24/19 01/30/21 Cholecalciferol (Vitamin D3) 200 unit PO DAILY 06/24/19 01/30/21 [Vitamin D3] Docosahexaenoic Acid [Atabex Dha 120 - 180 mg PO DAILY 06/24/19 01/30/21 200] Furosemide [Lasix] 80 mg PO DAILY 06/24/19 01/30/21 Insulin Glargine,Hum.rec.anlog 35 - 45 unit SQ QPM 06/24/19 01/30/21 [Riley Gamez U-100] Multivitamin [Multiple Vitamins] 1 tab PO DAILY 06/24/19 01/30/21 Niacin 50 mg PO DAILY 06/24/19 01/30/21 [place]-3/Dha/Epa/Fish Oil [Fish Oil 1,000 mg PO BID 06/24/19 01/30/21 1,000 mg Softgel] Potassium Chloride 20 meq PO DAILY 06/24/19 01/30/21 Telmisartan 40 mg PO BID 06/24/19 01/30/21 Vitamin B Complex 1 cap PO DAILY 06/24/19 01/30/21 amLODIPine [Norvasc] 10 mg PO DAILY 06/24/19 01/30/21 glipiZIDE [Glipizide] 15 mg PO BID 06/24/19 01/30/21 metFORMIN [Glucophage] 1,000 mg PO QPM 06/24/19 01/30/21 metFORMIN [Glucophage] 1,500 mg PO DAILY 06/24/19 01/30/21 - Allergies Allergies/Adverse Reactions: Allergies Allergy/AdvReac Type Severity Reaction Status Date / Time Beta-Blockers Allergy Unknown Verified 04/29/21 11:47 (Beta-Adrenergic Bloc pioglitazone [From Actos] Allergy Unknown Verified 04/29/21 11:47 Ingrzrc-JKR-GhI Reductase AdvReac Unknown Verified 04/29/21 11:47 Inhibitor [Hvwmtzt-Rbp-Izd Reductase Inhibitor] - Social History Does the pt smoke?: No Smoking Status: Never smoker Does the pt drink ETOH?: Yes Does the pt have substance abuse?: No - Immunizations Immunizations are current?: Yes - POLST Patient has POLST: No PD ED PE NORMAL - Vitals Vital signs reviewed: Yes - General General: Alert and oriented X 3, No acute distress, Well developed/nourished - HEENT HEENT: Atraumatic, Moist mucous membranes - Neck Neck: Supple, no meningeal sign, No bony TTP, No adenopathy - Cardiac Cardiac: RRR - Respiratory Respiratory: No respiratory distress, Clear bilaterally, Other (no chestwall tenderness) - Abdomen Abdomen: Soft, Non tender - Male Male : Other (ortiz visible from meatus with some mild dried blood around tip. ortiz bag showing some lightly red urine ) - Rectal Rectal: Deferred - Back Back: No CVA TTP - Derm Derm: Normal color, Warm and dry Results - Vitals Vitals: Vital Signs - 24 hr 04/29/21 04/29/21 04/29/21 11:40 13:47 15:08 Temperature 37.2 C 36.6 C Heart Rate 98 74 78 Respiratory 20 22 20 Rate Blood Pressure 152/86 H 130/80 O2 Saturation 97 99 99 04/29/21 15:21 Temperature 36.6 C Heart Rate 78 Respiratory 20 Rate Blood Pressure 130/81 H O2 Saturation 98 Oxygen O2 Source Room air - Labs Labs: Laboratory Tests 04/29/21 04/29/21 04/29/21 12:23 12:23 12:23 WBC 21.8 H RBC 5.15 Hgb 16.7 Hct 49.1 MCV 95.3 H MCH 32.4 H MCHC 34.0 RDW 14.1 Plt Count 210 MPV 11.8 H Neut # (Auto) 14.4 H Lymph # (Auto) 4.8 H Ceiba # (Auto) 2.1 H Eos # (Auto) 0.2 Baso # (Auto) 0.1 Absolute Nucleated RBC 0.00 Nucleated RBC % 0.0 Manual Slide Review Indicated RBC Morph Micro Appear 2+ ANISOCYTOSIS PT 15.6 H INR 1.4 H APTT 33.2 Sodium 137 Potassium 3.8 Chloride 101 Carbon Dioxide 24 Anion Gap 12.0 BUN 24 H Creatinine 1.0 Estimated GFR (MDRD) 72 L Glucose 205 H Calcium 9.0 Total Bilirubin 1.3 H AST 84 H ALT 48 Alkaline Phosphatase 104 Total Protein 6.9 Albumin 3.3 Globulin 3.6 Albumin/Globulin Ratio 0.9 L Lipase 17 L Urine Color Urine Clarity Urine pH Ur Specific [place] Urine Protein Urine Glucose (UA) Urine Ketones Urine Occult Blood Urine Nitrite Urine Bilirubin Urine Urobilinogen Ur Leukocyte Esterase Urine RBC Urine WBC Ur Squamous Epith Cells Urine Bacteria Ur Microscopic Review Urine Culture Comments 04/29/21 12:44 WBC RBC Hgb Hct MCV MCH MCHC RDW Plt Count MPV Neut # (Auto) Lymph # (Auto) Ceiba # (Auto) Eos # (Auto) Baso # (Auto) Absolute Nucleated RBC Nucleated RBC % Manual Slide Review RBC Morph Micro Appear PT INR APTT Sodium Potassium Chloride Carbon Dioxide Anion Gap BUN Creatinine Estimated GFR (MDRD) Glucose Calcium Total Bilirubin AST ALT Alkaline Phosphatase Total Protein Albumin Globulin Albumin/Globulin Ratio Lipase Urine Color YELLOW Urine Clarity CLEAR Urine pH 6.5 Ur Specific [place] 1.010 Urine Protein 100 H Urine Glucose (UA) NEGATIVE Urine Ketones NEGATIVE Urine Occult Blood LARGE H Urine Nitrite POSITIVE H Urine Bilirubin NEGATIVE Urine Urobilinogen 0.2 (NORMAL) Ur Leukocyte Esterase MODERATE H Urine RBC 0-5 Urine WBC 11-25 H Ur Squamous Epith Cells NONE SEEN Urine Bacteria Moderate H Ur Microscopic Review INDICATED Urine Culture Comments INDICATED - Rads (name of study) abd/pelvic CT Radiology: Prelim report reviewed (no kidney injury. SOme bladder wall thickening. trace air in bladder (c/w catheter). The tip of catheter is anterior to prostate, not in bladder. ), See rad report head CT Radiology: Prelim report reviewed (no ICH. ), See rad report PD MEDICAL DECISION MAKING - ED course Complexity details: reviewed results (appears the ortiz got pulled part way out when he fell, likely the cause of the blood at meatus and in leg bag. ), considered differential (no apparent head injury, but did fall and is on anticoag, so can scan head. HE has hematuria but seems to be blood around meatus and not really seeming hematuria from kidneys per se. Can scan abd to ensure no organ injury. ), d/w patient Departure - Departure Disposition: 01 Home, Self Care Clinical Impression: Anticoagulant long-term use Fall Qualifiers: Encounter type: initial encounter Qualified Code(s): W19.XXXA - Unspecified fall, initial encounter Dislodged Ortiz catheter Qualifiers: Encounter type: initial encounter Qualified Code(s): T83.021A - Displacement of indwelling urethral catheter, initial encounter Hematuria Qualifiers: Hematuria type: gross Qualified Code(s): R31.0 - Gross hematuria Condition: Stable Follow-Up: Srikanth Bermeo MD [Primary Care Provider] - Comments: It looks like your Ortiz catheter got partly pulled out likely when you fell and that led to the blood in the urine. We will replace it with a new one in the proper position. The blood in the urine should improve over the next day or 2. Recheck if persisting. Your CT scan does not show any injury to the kidneys bladder or internal organs. Your head CT does not show any bleeding which is always of a concern when you fall being on blood thinners even if you do not strike your head. Recheck if not improved over the next few days. Discharge Date/Time: 04/29/21 15:20
[2021-04-29 12:29] LABS: BASOPHILS # (AUTO) 0.1 10^3/uL (0.0-0.1); BASOPHILS % (AUTO) 0.5 %; EOSINOPHILS # (AUTO) 0.2 10^3/uL (0.0-0.7); EOSINOPHILS % (AUTO) 0.8 %; HCT - HEMATOCRIT 49.1 % (42.0-52.0); HGB - HEMOGLOBIN 16.7 g/dL (14.0-18.0); LYMPHOCYTES # (AUTO) 4.8 10^3/uL (1.5-3.5); LYMPHOCYTES % (AUTO) 22.2 %; MEAN CORPUSCULAR HEMOGLOBIN 32.4 pg (27.0-31.0); MEAN CORPUSCULAR VOLUME 95.3 fL (80.0-94.0); MEAN PLATELET VOLUME 11.8 fL (7.4-11.4); MONOCYTES # (AUTO) 2.1 10^3/uL (0.0-1.0); MONOCYTES % (AUTO) 9.5 %; NEUTROPHILS # (AUTO) 14.4 10^3/uL (1.5-6.6); NEUTROPHILS % (AUTO) 66.3 %; PLT - PLATELET COUNT 210 10^3/uL (130-450); RED BLOOD COUNT 5.15 10^6/uL (4.70-6.10); RED CELL DISTRIBUTION WIDTH 14.1 % (12.0-15.0); WHITE BLOOD COUNT 21.8 x10^3/uL (4.8-10.8)
[2021-04-29] MEDS ORDERED: iohexoL-300 100 ML VIAL ONE (12:33)
[2021-04-29 12:35] LABS: INR 1.4 (0.8-1.2); PT - PROTHROMBIN TIME 15.6 secs (9.9-12.6); SLIDE REVIEW? Indicated
[2021-04-29 12:42] LABS: PARTIAL THROMBOPLASTIN TIME 33.2 secs (24.9-33.3)
[2021-04-29 12:43] LABS: ALBUMIN 3.3 g/dL (3.2-5.5); ALBUMIN/GLOBULIN RATIO 0.9 (1.0-2.2); BILIRUBIN,TOTAL 1.3 mg/dL (0.2-1.0); POTASSIUM 3.8 mmol/L (3.5-5.0); TOTAL PROTEIN 6.9 g/dL (6.7-8.2)
[2021-04-29 12:48] LABS: BILIRUBIN,URINE NEGATIVE (NEGATIVE); GLUCOSE, URINE (UA) NEGATIVE (NEGATIVE); KETONES,URINE (UA) NEGATIVE (NEGATIVE); LEUKOCYTE ESTERASE, URINE MODERATE (NEGATIVE); NITRITE,URINE POSITIVE (NEGATIVE); OCCULT BLOOD,URINE LARGE (NEGATIVE); PH,URINE 6.5 PH (5.0-7.5); PROTEIN,URINE 100 mg/dL (NEGATIVE); UROBILINOGEN,URINE 0.2 (NORMAL) E.U./dL (NORMAL)
[2021-04-29 12:54] LABS: RBC MORPHOLOGY (MULTIPLE) 2+ ANISOCYTOSIS (NORMAL)
[2021-04-29 12:55] LABS: CLARITY,URINE CLEAR (CLEAR)
[2021-04-29 13:04] LABS: BACTERIA,URINE Moderate /HPF (None Seen); RBC,URINE 0-5 /HPF (0-5); SQUAMOUS EPITHELIAL CELL,UR NONE SEEN (<= Few)
--- NOTE | 2021-04-29 13:26 | CT Report ---
PROCEDURE: HEAD WO INDICATIONS: fall yesterday, on Eliquis TECHNIQUE: Noncontrast 4.5 mm thick angled axial sections acquired from the foramen magnum to the vertex. For r adiation dose reduction, the following was used: automated exposure control, adjustment of mA and/or kV according to patient size. COMPARISON: None. FINDINGS: Image quality: Excellent. CSF spaces: Basal cisterns are patent. No extra-axial fluid collections. Ventricles are normal in size and shape. Brain: No midline shift. Scattered white matter hypoattenuation most consistent with mild microvasc ular ischemic changes. No evidence of acute transcortical infarction. No intracranial masses or hemor rhage. Davis-white matter interface is normal. There is mild cerebral atrophy with prominence of the sulci. At the basilar tip there is slight increased prominence with increased density measuring 8 mm . Skull and face: Calvarium and visualized facial bones are intact, without suspicious lesions. Sinuses: Visualized sinuses and mastoids are clear. IMPRESSION: No acute intracranial hemorrhage or displaced skull fracture. 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 Consider confirmation with CTA. \Microvascular ischemic changes and cerebral volume loss. Reviewed by: Don Davalos DO on 04/29/2021 12:25 PM [facility] Approved by: Don Davalos DO on 04/29/2021 12:25 PM [facility] Station ID: [id number]
--- NOTE | 2021-04-29 14:03 | CT Report ---
PROCEDURE: Abdomen/Pelvis W INDICATIONS: fall yesterday, hematuria today; on Eliquis CONTRAST: IV CONTRAST: Isovue 300 ml: 300 PO CONTRAST: *NO PO CONTRAST TECHNIQUE: After the administration of nonionic iodinated contrast, 5 mm thick sections acquired from the diaphr agms to the symphysis. 5 mm thick coronal and sagittal reformats were acquired. For radiation dose reduction, the following was used: automated exposure control, adjustment of mA and/or kV according to patient size. COMPARISON: 05/24/2019 FINDINGS: Image quality: Excellent. ABDOMEN: Lung bases: Mild basilar atelectasis. Mild cardiomegaly. Severe multivessel coronary vascular calcifi cations. Solid organs: Liver is normal in size and enhancement. Gallbladder demonstrates gallstone without wal l thickening or surrounding inflammation to suggest cholecystitis. Spleen is surgically absent. Bili raheel system is non dilated. Pancreas enhances normally. Stable left adrenal nodule. This measures sherice roximately 1.6 cm. No evidence of lacerations. Kidneys demonstrate normal size and enhancement, witho ut hydronephrosis. Stable perinephric inflammation. Peritoneum and bowel: Stomach and small bowel are unremarkable in appearance. No wall thickening or s urrounding inflammation. No evidence of appendicitis. Diffuse sigmoid colon diverticulosis. No eviden ce of diverticulitis. No free fluid or pneumoperitoneum. Nodes and vessels: No retroperitoneal or mesenteric adenopathy by size criteria. Aorta and inferior vena cava are normal in size. Miscellaneous: No ventral hernias. Soft tissue hematoma noted within the intra-abdominal wall just left of midline. PELVIS: Genitourinary: There is small amount of dependent gas within the urinary bladder. Small foci of gas along the posterior aspect of the bladder wall decreasing in size from prior examination there is how ever mild adjacent wall thickening. Urinary catheter partially imaged with the tip at the anterior as pect of the prostate. Miscellaneous: Fat-containing left inguinal hernia. No adenopathy. Bones: No suspicious bony lesions. Stable neurostimulator and diffuse degenerative changes of the s pine along with postsurgical changes of the lumbosacral junction. No vertebral body compression fract ures. IMPRESSION: No acute traumatic injury of the abdomen or pelvis. Soft tissue hematoma along the left abdominal wal l. Nonspecific 1.6 mL left adrenal nodule, consider further evaluation with dedicated adrenal CT/MRI. Mild posterior wall thickening of the bladder wall with small foci of gas. Recommend correlation for cystitis. This is decreased from prior examination. The urinary catheter is noted with its tip anteri or to the prostate. Recommend correlation for appropriate placement. Consider direct evaluation. Diverticulosis. Cholelithiasis. Cardiomegaly with marked multivessel coronary vascular calcifications. Additional chronic findings as above. Reviewed by: Don Davalos DO on 04/29/2021 1:02 PM [place] Approved by: Don Davalos DO on 04/29/2021 1:02 PM [facility] Station ID: [id number]
[2021-04-29] MEDS ORDERED: LIDOCAINE 2% URO-JET 5 ML SYRINGE UR STA (14:18)
[2021-04-29 15:22] VITALS: BP 130/81
[2021-04-29] MEDS ORDERED: iohexoL-300 100 ML VIAL IVP ONE (15:40)
== END 2021-04-29 15:20 | disposition home or self-care (01) ==
LOC: ED 11:32
DX: T83.021A Displacement of indwelling urethral catheter, initial encounter (principal); R31.0 Gross hematuria; W19.XXXA Unspecified fall, initial encounter
CPT/HCPCS: 36415; 51702; 70450; 74177; 80053; 81001; 83690; 85025; 85610; 85730; 99282; 99284; Q9967; 81003; 87086

== ENCOUNTER 2021-06-05 10:37 | Outpatient (CLI) | payer MEDICARE, OTHER ==
[2021-06-05] MEDS ORDERED: IOVERSOL 320 100 ML VIAL IVP ONE ×2 (10:53→13:02)
--- NOTE | 2021-06-05 13:34 | CT Report ---
PROCEDURE: ANGIO HEAD W/WO INDICATIONS: Basilar tip aneurysm TECHNIQUE: Precontrast 4.5 mm thick angled axial sections acquired from the foramen magnum to the vertex. Afte r the administration of intravenous contrast, 1 mm thick sections acquired through the [place] of [place] is. Postcontrast 4.5 mm thick sections then re-acquired from the foramen magnum to the vertex. 3-di mensional frnfktf-kmbwvxwdp-nueqyjodvy (MIP) and/or volume rendering reformats were acquired of the c entral intracranial vasculature. For radiation dose reduction, the following was used: automated ex posure control, adjustment of mA and/or kV according to patient size. COMPARISON: 04/29/[address] FINDINGS: Image quality: Excellent. Anterior circulation: Intracranial internal carotid arteries are normal in size and flow. The flow within the paired anterior cerebral arteries is normal and symmetric. The flow within the middle cer ebral arteries is normal and symmetric. The anterior communicating artery is seen. No aneurysms are seen. Posterior circulation: There is mild vertebrobasilar The visualized distal vertebral arteries are wid jono patent. The basilar artery is also widely patent, with a small fusiform basilar artery tip aneury sm measuring up to 6 mm (the remainder of the basilar artery is approximately 5 mm in diameter). The previously reported diameter of approximately 8 mm made in an oblique plane, not a short axis diamete r of the basilar tip. CSF spaces: Ventricles are normal in size and shape. Basal cisterns are patent. No extra-axial flu id collections. Brain: Mild global cerebral volume loss with passive expansion of the ventricular system and sulci. N o acute intracranial hemorrhage. Davis-white matter differentiation is maintained without CT evidence of an acute large territory infarct. Patchy mild to moderate chronic microvascular ischemic changes w ithin the subcortical deep white matter of both cerebral hemispheres. Skull and face: Calvarium and facial bones appear intact, without suspicious lesions. Sinuses: Visualized sinuses and mastoids are clear. 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 Reviewed by: Matias Barboza MD on 06/05/2021 1:33 PM PST Approved by: Matias Barboza MD on 06/05/2021 1:33 PM PST Station ID: [id number]
== END 2021-06-05 10:38 | disposition home or self-care (01) ==
LOC: DI 10:37
PROVIDERS: ATTEND Family Medicine
DX: I72.5 Aneurysm of other precerebral arteries (principal)
CPT/HCPCS: 36415; 70496; 82565; Q9967

== ENCOUNTER 2021-07-04 10:26 | Outpatient (CLI) | payer MEDICARE, OTHER ==
[2021-07-04 12:47] LABS: ALBUMIN 3.9 g/dL (3.2-5.5); ALBUMIN/GLOBULIN RATIO 1.1 (1.0-2.2); ALKALINE PHOSPHATASE 62 IU/L (42-121); ALT ALANINE AMINOTRANSFERASE 33 IU/L (10-60); AST ASPARTATE AMINOTRANSFERASE 30 IU/L (10-42); BILIRUBIN,TOTAL 0.9 mg/dL (0.2-1.0); BUN - BLOOD UREA NITROGEN 22 mg/dL (6-20); CALCIUM 9.1 mg/dL (8.5-10.3); CARBON DIOXIDE - CO2 25 mmol/L (21-32); CHLORIDE 102 mmol/L (101-111); CHOL/HDL RATIO 5.4 (<5.0); CHOLESTEROL 194 mg/dL; CREATININE 1.1 mg/dL (0.6-1.2); GFR - MDRD 64 (>89); GLUCOSE 139 mg/dL (70-100); HDL CHOLESTEROL 36 mg/dL; LDL CHOLESTEROL,CALCULATED 120 mg/dL; LDL/HDL RATIO 3.3 (<3.6); POTASSIUM 3.9 mmol/L (3.5-5.0); SODIUM 138 mmol/L (135-145); TOTAL PROTEIN 7.3 g/dL (6.7-8.2); TRIGLYCERIDES 191 mg/dL; VLDL CHOLESTEROL 38 mg/dL
[2021-07-04 12:48] LABS: BASOPHILS % (AUTO) 0.6 %; EOSINOPHILS % (AUTO) 1.1 %; HCT - HEMATOCRIT 53.9 % (42.0-52.0); HGB - HEMOGLOBIN 18.1 g/dL (14.0-18.0); LYMPHOCYTES % (AUTO) 46.4 %; MEAN CORPUSCULAR HEMOGLOBIN 32.3 pg (27.0-31.0); MEAN CORPUSCULAR HGB CONC 33.6 g/dL (32.0-36.0); MEAN CORPUSCULAR VOLUME 96.1 fL (80.0-94.0); MONOCYTES % (AUTO) 9.1 %; NEUTROPHILS % (AUTO) 42.6 %; PLT - PLATELET COUNT 250 10^3/uL (130-450); RED BLOOD COUNT 5.61 10^6/uL (4.70-6.10); RED CELL DISTRIBUTION WIDTH 14.6 % (12.0-15.0); WHITE BLOOD COUNT 11.9 x10^3/uL (4.8-10.8)
[2021-07-04 12:52] LABS: CREATININE,URINE 22.1 mg/dL; MICROALBUM/CREATININE RATIO,UR 357.5 ug/mg (<30.0); MICROALBUMIN,URINE 7.9 mg/dL (0-300.0)
[2021-07-04 12:53] LABS: THYROID STIMULATING HORMONE 1.7 uIU/mL (0.34-5.60)
[2021-07-04 13:22] LABS: ESTIMATED AVERAGE GLUCOSE 157 mg/dL (70-100); HEMOGLOBIN A1c% 7.1 % (4.27-6.07)
[2021-07-04 13:28] LABS: SLIDE REVIEW? Indicated
[2021-07-04 13:29] LABS: ABNORMAL LYMPHS % (MANUAL) 0 %
[2021-07-04 13:34] LABS: BAND NEUTROPHILS % (MANUAL) 1 %; LYMPHOCYTES # (MANUAL) 5.2 10^3/uL (1.5-3.5); LYMPHOCYTES % (MANUAL) 22 %; MONOCYTES # (MANUAL) 0.6 10^3/uL (0.0-1.0); NEUTROPHILS # (MANUAL) 6.1 10^3/uL (1.5-6.6); REACTIVE LYMPHS % (MANUAL) 22 %
[2021-07-04 13:37] LABS: DIFFERENTIAL COMMENT MANUAL DIFFERENTIAL; PLATELET ESTIMATE, MANUAL NORMAL (130-450,000) (NORMAL); PLATELET MORPHOLOGY NORMAL APPEARANCE (NORMAL); RBC MORPHOLOGY (MULTIPLE) NORMAL APPEARANCE (NORMAL); WBC MORPHOLOGY (MULTIPLE) NORMAL APPEARANCE (NORMAL)
== END 2021-07-04 10:27 | disposition home or self-care (01) ==
LOC: LAB.N 10:26
PROVIDERS: ATTEND Family Medicine
DX: I10 Essential (primary) hypertension (principal); E11.65 Type 2 diabetes mellitus with hyperglycemia; E66.9 Obesity, unspecified; M15.9 Polyosteoarthritis, unspecified; M48.061 Spinal stenosis, lumbar region without neurogenic claudication; D75.1 Secondary polycythemia
CPT/HCPCS: 36415; 80053; 80061; 82043; 82570; 82728; 83036; 83721; 84443; 85025

== ENCOUNTER 2021-10-03 08:17 | Outpatient (CLI) | payer MEDICARE, OTHER ==
[2021-10-03 11:57] LABS: BASOPHILS # (AUTO) 0.1 10^3/uL (0.0-0.1); BASOPHILS % (AUTO) 0.6 %; EOSINOPHILS # (AUTO) 0.2 10^3/uL (0.0-0.7); EOSINOPHILS % (AUTO) 1.4 %; HCT - HEMATOCRIT 57.6 % (42.0-52.0); HGB - HEMOGLOBIN 19.2 g/dL (14.0-18.0); LYMPHOCYTES # (AUTO) 5.7 10^3/uL (1.5-3.5); LYMPHOCYTES % (AUTO) 46.4 %; MEAN CORPUSCULAR HEMOGLOBIN 32.4 pg (27.0-31.0); MEAN CORPUSCULAR HGB CONC 33.3 g/dL (32.0-36.0); MEAN CORPUSCULAR VOLUME 97.3 fL (80.0-94.0); MEAN PLATELET VOLUME 12.1 fL (7.4-11.4); MONOCYTES # (AUTO) 1.1 10^3/uL (0.0-1.0); MONOCYTES % (AUTO) 8.9 %; NEUTROPHILS # (AUTO) 5.2 10^3/uL (1.5-6.6); NEUTROPHILS % (AUTO) 42.5 %; PLT - PLATELET COUNT 215 10^3/uL (130-450); RED BLOOD COUNT 5.92 10^6/uL (4.70-6.10); RED CELL DISTRIBUTION WIDTH 14.9 % (12.0-15.0); WHITE BLOOD COUNT 12.2 x10^3/uL (4.8-10.8)
[2021-10-03 12:09] LABS: CALCIUM 9.6 mg/dL (8.5-10.3); POTASSIUM 3.9 mmol/L (3.5-5.0); SLIDE REVIEW? Indicated
[2021-10-03 12:12] LABS: CREATININE,URINE 19.3 mg/dL; MICROALBUM/CREATININE RATIO,UR 1233.2 ug/mg (<30.0); MICROALBUMIN,URINE 23.8 mg/dL (0-300.0)
[2021-10-03 12:16] LABS: ESTIMATED AVERAGE GLUCOSE 160 mg/dL (70-100); HEMOGLOBIN A1c% 7.2 % (4.27-6.07)
[2021-10-03 12:22] LABS: WBC MORPHOLOGY (MULTIPLE) 2+ REACTIVE LYMPHS (NORMAL)
== END 2021-10-03 08:18 | disposition home or self-care (01) ==
LOC: LAB.N 08:17
PROVIDERS: ATTEND Family Medicine
DX: I10 Essential (primary) hypertension (principal); G47.9 Sleep disorder, unspecified; E11.9 Type 2 diabetes mellitus without complications; E66.9 Obesity, unspecified; M48.061 Spinal stenosis, lumbar region without neurogenic claudication; N31.9 Neuromuscular dysfunction of bladder, unspecified; D75.1 Secondary polycythemia
CPT/HCPCS: 36415; 80048; 82043; 82570; 82728; 83036; 85025

== ENCOUNTER 2021-10-09 10:41 | Outpatient (CLI) | payer MEDICARE, OTHER ==
[2021-10-09 11:13] VITALS: BP 129/78
--- NOTE | 2021-10-09 11:13 | SLEEP CARE CONSULTATION ---
Information from patient questionnaire entered by Chanda Greco MA. I have reviewed and concur with the information entered by Chanda Greco MA. This document represents the service I personally performed and the decisions made by me, Danilo Lomas MD, [facility]. History of Present Illness Service Date and Time: 10/09/2021 1041 Previous diagnosis: Very Severe, Central Sleep Apnea-Hypopnea Syndrome AHI: 65.8 (in 2014) Reason for follow up: annual (LAST SEEN 05/2020, DELORES GALLO 04/07/2020, ) Equipment type: ASV Equipment obtained from: Other ([employer] - getting supplies as needed) Mask style: Full face Prior sleep studies: Yes Year and Where: 2014 in [facility] additional information: Mr. Rawls returned today for follow up of BiPAP ASV therapy. He was diagnosed to have central sleep apnea-hypopnea syndrome. The patient acquired a new BiPAP ASV from [employer] He was fitted with a [employer] full face mask. He reports using the device nightly and all through the night. The compliance report shows usage in 364 nights out of the past 365 nights, averaging 9.5 hours a night. The > 4 hour compliance rate for the past 365 days is 100%. He complained of insomnia but no particular problem with the device such as soreness on the face, dry nose, epistaxis, nasal congestion or headache. He thinks that the BiPAP ASV setting is comfortable (EPAP at 6 cmH2O and pressure support 3 15 cmH2O). On the BiPAP therapy he notices improvement in his sleep quality, and that he wakes up feeling fresher in the morning and more awake/alert during the day. The Malone Sleepiness Scale score 0 (was 1 last year). The average residual AHI is 0.9; and air leak, 9.7 L/minutes. Sleep Study - Results Prior sleep studies: Yes Year and Where: 2014 - in [place], [place] CPAP Compliance Data - Data Reviewed with Patient Average duration of nightly device use: 9 HOURS 27 MINUTES Compliance rate %: 100 (04/09/21-10/05/2021) Current pressure setting (cmH2O): 3-15 6 EPAP Average residual AHI: 1.5 Hypopnea: 1.3 Average large leak: 13.8 Subjective Current pressure setting perceived as: too high Initial Malone Sleepiness Scale score: 4 (in 2019) Current Malone Sleepiness Scale score: 0 (10/09/2021) Allergies and Home Medications Drug allergies reviewed: Yes Home medication list reviewed: Yes Allergy and home medication list: Allergies Beta-Blockers (Beta-Adrenergic Bloc Allergy (Verified 04/29/21 11:47) Unknown pioglitazone [From Actos] Allergy (Verified 04/29/21 11:47) Unknown Eywdxrs-LAG-WsP Reductase Inhibitor [Rkrwizx-Hne-Hue Reductase Inhibitor] Adverse Reaction (Verified 04/29/21 11:47) Unknown Review of Systems Review of systems same as previous: Yes Physical Exam Vital signs obtained and entered by: JONI LAWRENCE Blood Pressure: 129/78 (PULSE 72, RESP 18, RIGHT) Cuff size: wrist Heart Rate: 72 O2 Saturation: 97 (PAPER MASK) Height: 5 ft 10 in Weight: 255 lb (CLOTHES) Weight change since last visit: WATCHING WHAT HE EATS Body Mass Index: 36.6 BMI Classification: Obese Impression and Plan IMPRESSION: 1. Central Sleep Apnea & Cristi-Lang respiration, with the patient doing well on BiPAP ASV therapy. He continues to have excellent compliance and significant clinical improvement. The current pressure appears effective and comfortable. Overall, he is very satisfied with treatment and plans to continue with it long-term. No adjustment is necessary today. His insomnia is due to excessive time spent in bed of 9.5 hours, according to his BiPAP. PLAN: 1. Continue BiPAP ASV: EPAP min of 6 cmH2O and pressure support between 3 and 15 cmH2O. 2. Maintain a regular wake up time and spend no more than 8 hours in bed at night. Avoid naps. 3. Return in one year for follow up or earlier if there is any problem. Follow up with Sleep Care in: 1 year Visit Type: In Office Time Spent with Patient (minutes): 15 Provider Statement: I spent 100% of the Face to Face Visit with the patient with greater than 50% spent counseling the patient and coordination of care.
== END 2021-10-09 10:42 | disposition home or self-care (01) ==
LOC: SC 10:41
PROVIDERS: ATTEND Internal Medicine Pulmonary Disease
DX: G47.31 Primary central sleep apnea (principal); E66.9 Obesity, unspecified; Z68.36 Body mass index [BMI] 36.0-36.9, adult
CPT/HCPCS: 99212; G0463

== ENCOUNTER 2022-01-31 08:00 | Outpatient (CLI) | payer MEDICARE, OTHER ==
--- NOTE | 2022-01-31 16:44 | XRAY Report ---
PROCEDURE: Ribs w/PA Chest LT INDICATIONS: L RIB PX TECHNIQUE: 3 views of the left ribs were acquired, along with a single view chest. COMPARISON: None FINDINGS: Surgical changes and devices: None. Bones and chest wall: Left lateral seventh and eighth as well as ninth rib fractures are noted. There is an old inferior lateral left ninth rib fracture. No suspicious bony lesions. Overlying soft tiss ues appear unremarkable. Lungs and pleura: No pleural effusions or pneumothorax. Lungs appear clear. Mediastinum: Mediastinal contours appear normal. Heart size is normal. IMPRESSION: Acute/subacute left lateral seventh through ninth rib fractures. Reviewed by: Tatiana Mesa MD on 01/31/2022 4:43 PM PDT Approved by: Tatiana Mesa MD on 01/31/2022 4:43 PM PDT Station ID: [id number]
== END 2022-01-31 23:59 | disposition home or self-care (01) ==
LOC: DI.N 08:00
PROVIDERS: ATTEND Family Medicine
DX: S22.42XA Multiple fractures of ribs, left side, initial encounter for closed fracture (principal)

== ENCOUNTER 2022-03-03 09:15 | Outpatient (CLI) | payer MEDICARE, OTHER | END 2022-03-03 23:59 | disposition critical access hospital (66) | LOC: EMS 09:15 | DX: R53.1 Weakness (principal); R20.0 Anesthesia of skin; E11.42 Type 2 diabetes mellitus with diabetic polyneuropathy; W06.XXXA Fall from bed, initial encounter; Y92.003 Bedroom of unspecified non-institutional (private) residence as the place of occurrence of the external cause; Z79.01 Long term (current) use of anticoagulants | CPT/HCPCS: A0425; A0429 ==

== ENCOUNTER 2022-03-03 09:32 | Inpatient (IN) | payer MEDICARE, OTHER ==
[2022-03-03] MEDS ORDERED: oxyCODONE 5 MG TABLET PO STA (09:40)
--- NOTE | 2022-03-03 09:45 | ED Physician Documentation ---
PD HPI MAJOR TRAUMA - Stated complaint Stated Complaint: FOUND DOWN - History obtained from History obtained from: Patient, EMS - Additional information Additional information: This is an 81-year-old gentleman with history of polycythemia, atrial fibrillation on Eliquis, chronic indwelling Tiwari, and diabetes with neuropathy who rolled out of bed around 10 PM last night, landing on his side. He was unable to get himself off the bed and laid on the ground for most of the night. He complains of back and right leg pain not necessarily from the fall, he also notes that his diabetic neuropathy has been acutely worsening and really cannot feel much from the hips down and complains of back and right-sided hip pain. He is pretty sure he did not hit his head but I note a scratch on the bridge of his nose. When queried about that he says he was just trying to find a place to lay his head while he was on the ground. He also vacillates as to whether or not he remembers the fall. We also note a bruise on his right lower quadrant but he states that from insulin as opposed to trauma. EMS noted him to have a blood sugar of about 250. Review of Systems Ten Systems: 10 systems reviewed and negative Constitutional: reports: Chills (x 2 days), Reviewed and negative Eyes: reports: Reviewed and negative Nose: reports: Reviewed and negative Cardiac: reports: Reviewed and negative Respiratory: reports: Reviewed and negative PD PAST MEDICAL HISTORY - Past Medical History Cardiovascular: Hypertension, High cholesterol, Atrial fibrillation Endocrine/Autoimmune: Type 2 diabetes GI: Diverticulitis : Indwelling catheter, Frequency - Past Surgical History Past Surgical History: Yes General: Other Ortho: Knee replacement - Present Medications Home Medications: Ambulatory Orders Medication Instructions Recorded Confirmed Apixaban [Eliquis] 5 mg PO BID 06/24/19 03/03/22 Cholecalciferol (Vitamin D3) 200 unit PO DAILY 06/24/19 03/03/22 [Vitamin D3] Furosemide [Lasix] 80 mg PO DAILY 06/24/19 03/03/22 Insulin Glargine,Hum.rec.anlog 35 - 45 unit SQ QPM 06/24/19 03/03/22 [Basaglar Lionelpen U-100] Multivitamin [Multiple Vitamins] 1 tab PO DAILY 06/24/19 03/03/22 Niacin 500 mg PO DAILY 06/24/19 03/03/22 [place]-3/Dha/Epa/Fish Oil [Fish Oil 1,000 mg PO BID 06/24/19 03/03/22 1,000 mg Softgel] Potassium Chloride 20 meq PO DAILY 06/24/19 03/03/22 amLODIPine [Norvasc] 10 mg PO DAILY 06/24/19 03/03/22 glipiZIDE [Glipizide] 15 mg PO BID 06/24/19 03/03/22 metFORMIN [Glucophage] 1,000 mg PO QPM 06/24/19 03/03/22 metFORMIN [Glucophage] 1,500 mg PO DAILY 06/24/19 03/03/22 Carvedilol [Coreg] 6.25 mg PO DAILY 03/03/22 03/03/22 Insulin Aspart [NovoLOG] 5 unit SQ TID 03/03/22 03/03/22 Losartan [Cozaar] 25 mg PO DAILY 03/03/22 03/03/22 Magnesium Oxide [Magnesium] 200 mg PO DAILY 03/03/22 03/03/22 Telmisartan 80 mg PO DAILY 03/03/22 03/03/22 predniSONE [Deltasone] 10 mg PO DAILY 03/03/22 03/03/22 - Allergies Allergies/Adverse Reactions: Allergies Allergy/AdvReac Type Severity Reaction Status Date / Time Beta-Blockers Allergy Unknown Verified 03/03/22 09:50 (Beta-Adrenergic Bloc pioglitazone [From Actos] Allergy Unknown Verified 03/03/22 09:50 Alckrlx-FSA-YeX Reductase AdvReac Unknown Verified 03/03/22 09:50 Inhibitor [Dezjxud-Mkw-Zrr Reductase Inhibitor] - Social History Does the pt smoke?: No Smoking Status: Never smoker Does the pt drink ETOH?: Yes Does the pt have substance abuse?: No - Immunizations Immunizations are current?: Yes - POLST Patient has POLST: No PD ED PE NORMAL - Vitals Vital signs reviewed: Yes - General General: Alert and oriented X 3, No acute distress - HEENT HEENT: PERRL, EOMI, Other (scrape over bridge of nose) - Neck Neck: Supple, no meningeal sign, No bony TTP - Cardiac Cardiac: RRR, No murmur - Respiratory Respiratory: No respiratory distress, Clear bilaterally - Abdomen Abdomen: Normal bowel sounds, Soft, Non tender, Other (Bruising RLQ) - Back Back: No CVA TTP, No spinal TTP - Derm Derm: Normal color, Warm and dry - Extremities Extremities: No edema, No calf tenderness / cord, Other (Difficulty ROM at R hi p; There is a gaping but very shallow laceration inferior to the right patella which frankly looks older than 12 hours old, it is not approximateable and will have to heal by secondary intention) - Neuro Neuro: Alert and oriented X 3, No motor deficit, No sensory deficit, Normal speech Eye Opening: Spontaneous Motor: Obeys Commands Verbal: Oriented GCS Score: 15 - Psych Psych: Normal mood, Normal affect Results - Vitals Vitals: Vital Signs - 24 hr 03/03/22 03/03/22 03/03/22 09:47 12:26 12:56 Temperature 35.7 C L Heart Rate 68 67 70 Respiratory 33 H 30 H 28 H Rate Blood Pressure 121/70 129/85 H 136/81 H O2 Saturation 98 100 98 03/03/22 13:26 Temperature Heart Rate 72 Respiratory 28 H Rate Blood Pressure 163/105 H O2 Saturation 96 Oxygen O2 Source Room air - EKG (time done) 1047 Rate: Rate (enter#) (62) Rhythm: Atrial fibrillation [place]: Normal Intervals: Prolonged QT, Other (borderline ivcd) QRS: Normal Ischemia: Normal ST segments - Labs Labs: Laboratory Tests 03/03/22 03/03/22 03/03/22 10:40 11:10 11:10 WBC 28.9 H RBC 6.23 H Hgb 20.2 H Hct 60.1 H MCV 96.5 H MCH 32.4 H MCHC 33.6 RDW 14.9 Plt Count 195 MPV 12.6 H Neut # (Auto) 25.9 H Lymph # (Auto) 0.9 L [place] # (Auto) 1.9 H Eos # (Auto) 0.0 Baso # (Auto) 0.1 Absolute Nucleated RBC 0.00 Nucleated RBC % 0.0 Manual Slide Review Indicated WBC Morphology Platelet Estimate NORMAL (130-450,000) Platelet Morphology NORMAL APPEARANCE RBC Morph Micro Appear NORMAL APPEARANCE Sodium 135 Potassium 6.4 H* Chloride 104 Carbon Dioxide 16 L Anion Gap 15.0 H BUN 42 H Creatinine 1.8 H Estimated GFR (MDRD) 36 L Glucose 335 H Lactic Acid 5.0 H* Calcium 8.7 Total Bilirubin 1.2 H AST 756 H ALT 257 H Alkaline Phosphatase 140 H Total Creatine Kinase 54678 H* Total Protein 7.5 Albumin 3.7 Globulin 3.8 Albumin/Globulin Ratio 1.0 - Rads (name of study) Right hip x-ray is unremarkable noting L5-S1 disc spacer, sacral stimulator and bladder catheter Radiology: EMP read contemporaneously CT of the head and cervical spine without trauma, degenerative changes in the neck. Radiology: EMP read contemporaneously CT Chest Radiology: EMP read contemporaneously (Subacute left-sided rib fractures, coronary artery calcification, gallstones, renal cysts, history of splenectomy, mild cardiomegaly) CT abdomen and pelvis without acute findings, multiple incidental findings as noted in the radiologist read. Radiology: EMP read contemporaneously Procedures - Central Line Central Line Preparation: Consent Obtained, Time out completed, Ultrasound used, Sterile prep and drape Central line location: Right IJ Central line type: Triple lumen Central line aftercare: Chlorhexidine disc placed, Secured, Placement confirmed, No pneumothorax, Bundle checklist complete, Pt tolerated well PD MEDICAL DECISION MAKING - ED course ED course: This is an 81-year-old gentleman with multiple comorbidities presents with generalized weakness in the setting of recent chills, and a fall out of bed last night and inability to get himself back up due to generalized weakness and right leg pain. Work-up here demonstrates higher than normal leukocytosis, with his polycythemia his white count is usually in the teens but today it is 28,900, his hemoglobin is usually in the high teens and slightly higher today with rhabdomyolysis with a CK of 55,000, lactic acidosis at 5, modest transaminitis, RIGO, hyperkalemia, and acidemia. He is given large volumes of IV fluids and br oad-spectrum sepsis antibiotics. Thorough CT imaging was done and showing numerous incidental findings. Spoke with Dr. Trent for admission at 1:45 PM. Urinalysis is pending on admission, but that is the likely source of his sepsis. - Critical Care Time(min): 40 Time Includes: Direct patient care, Review records, Reassess patient, Document care, Coordinate care, Medical consult, Family consult for tx dec (daughter at bedside), See progress note Data interpretation: Labs, Pulse ox Procedures included in critical care time: Peripheral IV Procedures excluded from critical care time: Central IV, EKG Departure - Departure Disposition: 66 [facility] DC/Xfer Clinical Impression: Acute kidney injury, Chronic atrial fibrillation, Insulin dependent diabetes mellitus, Polycythemia, Sepsis, Right leg pain, Rhabdomyolysis Condition: Serious Discharge Date/Time: 03/03/22 15:11
[2022-03-03 10:49] LABS: BASOPHILS # (AUTO) 0.1 10^3/uL (0.0-0.1); BASOPHILS % (AUTO) 0.3 %; HCT - HEMATOCRIT 60.1 % (42.0-52.0); HGB - HEMOGLOBIN 20.2 g/dL (14.0-18.0); LYMPHOCYTES # (AUTO) 0.9 10^3/uL (1.5-3.5); LYMPHOCYTES % (AUTO) 3.1 %; MEAN CORPUSCULAR HEMOGLOBIN 32.4 pg (27.0-31.0); MEAN CORPUSCULAR HGB CONC 33.6 g/dL (32.0-36.0); MEAN CORPUSCULAR VOLUME 96.5 fL (80.0-94.0); MEAN PLATELET VOLUME 12.6 fL (7.4-11.4); MONOCYTES # (AUTO) 1.9 10^3/uL (0.0-1.0); MONOCYTES % (AUTO) 6.5 %; NEUTROPHILS # (AUTO) 25.9 10^3/uL (1.5-6.6); NEUTROPHILS % (AUTO) 89.3 %; PLT - PLATELET COUNT 195 10^3/uL (130-450); RED BLOOD COUNT 6.23 10^6/uL (4.70-6.10); RED CELL DISTRIBUTION WIDTH 14.9 % (12.0-15.0); WHITE BLOOD COUNT 28.9 x10^3/uL (4.8-10.8)
[2022-03-03] MEDS ORDERED: iohexoL-300 100 ML VIAL ONE (10:55)
[2022-03-03 11:03] LABS: SLIDE REVIEW? Indicated
--- NOTE | 2022-03-03 11:08 | XRAY Report ---
PROCEDURE: Hip w/Pelvis 2-3V RT INDICATIONS: leg trauma TECHNIQUE: AP pelvis with lateral view(s) of the right hip(s). COMPARISON: Correlation is made with the prior abdomen and pelvis CT, 04/29/2021. FINDINGS: Bones: No fractures or dislocations. Pelvic ring appears intact. No suspicious bony lesions. Age- appropriate degenerative changes are seen. An L5-S1 disc spacer is seen. Soft tissues: The visualized bowel gas pattern is normal. No suspicious soft tissue calcifications. There is a right-sided sacral stimulator seen. A bladder catheter is seen. IMPRESSION: No displaced fractures are seen on this plain film study. In this patient with a given history of trauma, please correlate with focal tenderness. If clinically appropriate, please consider a short-term follow-up plain films series versus a dedicated CT study. Postoperative changes are seen. Reviewed by: Wayne Doss MD on 03/03/2022 10:[address] [facility] Approved by: Wayne Doss MD on 03/03/2022 10:[address] [facility] Station ID: [id number]
[2022-03-03 11:13] LABS: PLATELET ESTIMATE, MANUAL NORMAL (130-450,000) (NORMAL); PLATELET MORPHOLOGY NORMAL APPEARANCE (NORMAL); RBC MORPHOLOGY (MULTIPLE) NORMAL APPEARANCE (NORMAL)
--- NOTE | 2022-03-03 11:30 | XRAY Report ---
PROCEDURE: Tib/Fib RT INDICATIONS: leg trauma TECHNIQUE: 2 views of the tibia and fibula were acquired. COMPARISON: Correlation is made with the accompanying knee plain films, 03/03/2022. FINDINGS: Bones: No fractures or dislocations. No suspicious bony lesions. Right neoplastic hardware is seen , without findings of failure or loosening. Soft tissues: No suspicious soft tissue calcifications or masses. Atherosclerotic calcification is seen. IMPRESSION: Negative for fracture. Right knee arthroplasty hardware. Reviewed by: Wayne Doss MD on 03/03/2022 10:29 AM [facility] Approved by: Wanye Doss MD on 03/03/2022 10:29 AM [facility] Station ID: [id number]
--- NOTE | 2022-03-03 11:33 | XRAY Report ---
PROCEDURE: Femur 2V RT INDICATIONS: leg trauma TECHNIQUE: 2 views of the femur were acquired. COMPARISON: Correlation is made with the accompanying hip and knee plain films, 03/03/2022 FINDINGS: Bones: No fractures or dislocations. No suspicious bony lesions. Right knee arthroplasty hardware is seen, which appears intact. Soft tissues: Soft tissue injury is partially seen inferior to the patella. There is a small joint e ffusion. IMPRESSION: Soft tissue injury is seen inferior to the patella. A small joint effusion is seen. No displaced fracture is seen. Intact appearing right knee arthroplasty hardware can be seen. Reviewed by: Wayne Doss MD on 03/03/2022 10:32 AM [facility] Approved by: Wayne Doss MD on 03/03/2022 10:32 AM [facility] Station ID: [id number]
--- NOTE | 2022-03-03 11:35 | XRAY Report ---
PROCEDURE: Knee 4 View RT INDICATIONS: leg trauma TECHNIQUE: 4 views of the right knee(s) were acquired. COMPARISON: Correlation is made with the accompanying femur and tibia/fib plain films, 03/03/2022. FINDINGS: Bones: No fractures or dislocations. No suspicious bony lesions. Intact appearing right neoplastic hardware is seen. Soft tissues: There is a soft tissue laceration seen inferior to the knee. There is a moderate right knee joint effusion. IMPRESSION: There is a soft tissue laceration seen inferior to the patella. Moderate knee joint effusion. Intact appearing right knee arthroplasty hardware. Reviewed by: Wayne Doss MD on 03/03/2022 10:33 AM [facility] Approved by: Wayne Doss MD on 03/03/2022 10:33 AM [facility] Station ID: [id number]
[2022-03-03] MEDS ORDERED: metroNIDAZOLE 500 MG/100 ML 500 MG/100 ML BAG IV STA (11:37)
[2022-03-03] MEDS ORDERED: CEFEPIME 2 GM in SODIUM CHLORIDE 0.9% MINIBAG 100 ML IV STA (11:37)
[2022-03-03] MEDS ORDERED: VANCOMYCIN INJ 2.25 GM in SODIUM CHLORIDE 0.9% 500 ML IV STA (11:37)
[2022-03-03] MEDS ORDERED: LACTATED RINGERS IV STA (11:39)
[2022-03-03 11:48] LABS: ALBUMIN 3.7 g/dL (3.2-5.5); BILIRUBIN,TOTAL 1.2 mg/dL (0.2-1.0); CALCIUM 8.7 mg/dL (8.5-10.3); CREATININE 1.8 mg/dL (0.6-1.2); TOTAL PROTEIN 7.5 g/dL (6.7-8.2)
[2022-03-03 11:49] LABS: POTASSIUM 6.4 mmol/L (3.5-5.0)
--- NOTE | 2022-03-03 12:30 | CT Report ---
PROCEDURE: HEAD WO INDICATIONS: head inj TECHNIQUE: Noncontrast 4.5 mm thick angled axial sections acquired from the foramen magnum to the vertex. For r adiation dose reduction, the following was used: automated exposure control, adjustment of mA and/or kV according to patient size. COMPARISON: Correlation is made with the accompanying cervical spine CT, 03/03/2022. FINDINGS: Image quality: Motion artifact is noted. There is streak artifact seen through the skull base. CSF spaces: Basal cisterns are patent. No extra-axial fluid collections. Ventricles are normal in size and shape. Brain: No midline shift. No intracranial masses or hemorrhage. Davis-white matter interface is norm al. Skull and face: Calvarium and visualized facial bones are intact, without suspicious lesions. Sinuses: Visualized sinuses and mastoids are clear. IMPRESSION: No intracranial hemorrhage is seen. No significant intracranial abnormality is seen. Reviewed by: Wayne Doss MD on 03/03/2022 11:28 AM [facility] Approved by: Wayne Doss MD on 03/03/2022 11:28 AM [facility] Station ID: [id number]
--- NOTE | 2022-03-03 12:31 | CT Report ---
PROCEDURE: CERVICAL SPINE WO INDICATIONS: head inj TECHNIQUE: Noncontrast 3 mm thick sections acquired from the skull base to the T4 level. Sagittal and coronal r eformats were then constructed. For radiation dose reduction, the following was used: automated exp osure control, adjustment of mA and/or kV according to patient size. COMPARISON: Correlation is made with the accompanying head CT, 03/03/2022. FINDINGS: Image quality: Excellent. Bones: No fractures or dislocations. Visualized superior ribs are intact. Focal degenerative change is seen involving the C1-C2 interface anteriorly. There is mild disc space narrowing seen at the C3-C4 level. Milder degenerative changes are seen elsewhere. Soft tissues: Prevertebral soft tissues are normal in thickness. No paravertebral hematomas. No ap ical pneumothoraces. A mild degree of intravenous contrast is seen, which is regarded to be iatrogen ic and typically no clinical consequence. IMPRESSION: Negative for acute fracture. Degenerative changes are seen, which are worst involving the C1-C2 interface anteriorly. Reviewed by: Wayne Doss MD on 03/03/2022 11:30 AM [facility] Approved by: Wayne Doss MD on 03/03/2022 11:30 AM [facility] Station ID: [id number]
[2022-03-03] MEDS ORDERED: iohexoL-300 100 ML VIAL IVP ONE (12:50)
--- NOTE | 2022-03-03 13:01 | CT Report ---
PROCEDURE: CHEST W INDICATIONS: chest trauma CONTRAST:100ml omni 300 TECHNIQUE: After the administration of intravenous contrast, 1 mm axial images were acquired from the pulmonary apices through the posterior costophrenic angles. Axial 5 mm soft tissue kernel reconstructions were performed as well as 8 mm axial MIP and coronal and sagittal 5 mm reformations. For radiation dose reduction, the following was used: automated exposure control, adjustment of mA and/or kV according to patient size. COMPARISON: Correlation is made with the accompanying CT examinations. FINDINGS: Image quality: Excellent. Lungs and pleura: No acute air space opacities. No pleural effusions or pneumothorax. Central and peripheral airways are patent and normal in caliber. Mediastinum: Heart size is mildly enlarged. No pericardial effusion. Moderate coronary artery calci fication is seen. No mediastinal or hilar adenopathy by size criteria. Thoracic aorta and central pu lmonary arteries are normal in size. No filling defects are seen within the pulmonary arteries to sug gest pulmonary embolism. Esophagus is normal in caliber. No hiatal hernia. Bones and chest wall: Within the left posterior inferior ribs involving the ninth, 10th, and 11th ri bs, there are fractures seen. Periosteal reaction can be seen associated with these fractures. No fra nk acute rib fractures are seen. No suspicious bony lesions. No vertebral body compression fractures. No axillary or supraclavicular adenopathy by size criteria. The thyroid is normal in size and there are no incidental findings. There is a mild amount of intravenous gas seen, which is regarded to be iatrogenic and not frankly pa thologic. Abdomen: Layering gallstones are seen. Simple appearing right renal cysts are seen. Prior splenectomy The visualized portions of the upper abdominal structures are otherwise within normal limits. IMPRESSION: Left-sided rib fractures are seen. However, periosteal reaction is seen associated with these fractur es and these are attributed to subacute, poorly healed fractures. There is mild cardiomegaly. Incidental note is made of: Moderate coronary artery calcification Layering gallstones Simple appearing right renal cysts Prior splenectomy Reviewed by: Wayne Doss MD on 03/03/2022 11:59 AM [facility] Approved by: Wayne Doss MD on 03/03/2022 11:59 AM [facility] Station ID: [id number]
--- NOTE | 2022-03-03 13:04 | CT Report ---
PROCEDURE: ABDOMEN/PELVIS W INDICATIONS: abd traum CONTRAST: 100ml omni 300 TECHNIQUE: After the administration of IV contrast, 5 mm thick sections acquired from the diaphragms to the symp hysis. 5 mm thick coronal and sagittal reformats were acquired. For radiation dose reduction, the f ollowing was used: automated exposure control, adjustment of mA and/or kV according to patient size. COMPARISON: Correlation is made with the accompanying CT examinations. FINDINGS: Image quality: Excellent. ABDOMEN: Lung bases: Lung bases are clear. Heart size is mildly enlarged. Moderate coronary artery calcifica tion can be seen. Subacute left posterior rib fractures are seen. Solid organs: The liver demonstrates normal size and demonstrates no suspicious lesions. Prior sple nectomy change can be seen. Gallbladder demonstrates layering gallstones Biliary system is non dilat ed. Pancreas enhances normally. No adrenal nodules. Kidneys demonstrate normal size and enhancemen t, without hydronephrosis. Simple appearing right renal cysts are seen. Peritoneum and bowel: Bowel loops demonstrate normal wall thickness and caliber. No free fluid or a ir. Diverticulosis can be seen, without katiana findings of active diverticulitis. A normal appendix i s incidentally noted. Nodes and vessels: No retroperitoneal or mesenteric adenopathy by size criteria. Aorta and inferior vena cava are normal in size. Atherosclerotic calcification is seen. Miscellaneous: No ventral hernias. PELVIS: Genitourinary: A Tiwari catheter seen, which decompresses the bladder. Miscellaneous: No inguinal adenopathy. Bilateral fat-containing inguinal hernias are seen, left lar elisabeth than right Bones: No suspicious bony lesions. No vertebral body compression fractures. There is a disc spacer seen at the L5-S1 level. A right-sided sacral stimulator is seen. Age-appropriate degenerative charles es are seen. Mild dextroconvex scoliotic curvature is seen. IMPRESSION: No katiana acute posttraumatic abnormality is identified. Incidental note is made of: Mild cardiomegaly Moderate coronary artery calcification Subacute left posterior rib fractures Layering gallstones Prior splenectomy Simple appearing right renal cysts Diverticulosis can be seen, without katiana findings of active diverticulitis. Normal appendix L5-S1 disc spacer Right-sided sacral stimulator Tiwari catheter Bilateral fat-containing inguinal hernias Reviewed by: Wayne Doss MD on 03/03/2022 12:03 PM [facility] Approved by: Wayne Doss MD on 03/03/2022 12:03 PM [facility] Station ID: [id number]
--- NOTE | 2022-03-03 13:07 | XRAY Report ---
PROCEDURE: Chest for Line Placement INDICATIONS: Status post right IJ CVC TECHNIQUE: One view of the chest was acquired. COMPARISON: Prior chest radiograph 08/31/[address], 04/02/2022 FINDINGS: Surgical changes and devices: A right-sided central line is seen, with the tip protruding slightly i nto the right atrium. Lungs and pleura: No pleural effusions or pneumothorax. Lungs are clear. Mediastinum: The aorta is prominent and tortuous. The cardiac contours are mildly enlarged. Bones and chest wall: No suspicious bony lesions. The known subacute left posterior rib fractures ar e not well seen on this plain film study. Overlying soft tissues appear unremarkable. IMPRESSION: The tip of the right-sided central line protrudes slightly into the right atrium. Mild cardiomegaly. Reviewed by: Wayne Doss MD on 03/03/2022 12:06 PM [facility] Approved by: Wayne Doss MD on 03/03/2022 12:06 PM [facility] Station ID: [id number]
[2022-03-03] MEDS ORDERED: ONDANSETRON ODT 4 MG TABLET TL PRN (13:46)
[2022-03-03] MEDS ORDERED: ONDANSETRON 4 MG/2 ML VIAL IVP PRN (13:46)
[2022-03-03] MEDS ORDERED: MORPHINE 2 MG/ML CARPUJECT IVP PRN (13:46)
--- NOTE | 2022-03-03 14:15 | HISTORY & PHYSICAL EXAMINATION ---
History and Physical - History and Physical March 03, 2022 1:57 PM Chief complaint: Falling out of bed Admitted from: Home via EMS PCP Srikanth Trevizo History obtained from Dr. Hamm and patient History of present illness: He lives alone, and accidentally rolled out of bed last night around 10:00 at night. He is a vague historian. He was unable to get off the floor and laid on the ground for most of the night. He denies blows to the head. However, his nose has an abrasion on it. His back hurts, right leg hurts from laying on the ground. He was found and EMS was called. Prior to this, he has had a couple of bad nights. He describes being very chilled, and shaking quite a bit because he was so cold. He was piling blankets on the bed to keep himself warm. During the day he seemed to recover but at night it was bad. The night he fell he had piled on a lot of blankets in his he was struggling to get out of bed to go to the bathroom, he thinks he just got caught up in the blankets and fell down. And then he could not get to the side of the bed and had the phone and lay on the floor with blankets on top of them. He denies fever, chills. He denies cough, congestion. No belly pain. No diarrhea. No headaches, no sore throat, no ear pain.He is a chronic indwelling Tiwari catheter. In the emergency room,Temperature was 35.7. Blood pressure 121/70. Respiratory rate was 33, and he was 98% on room air. He is 117 kg and is 5 foot 11 inches tall. The emergency room provider found him to be alert and oriented, no distress. Regular rate and rhythm. No pulmonary problems and normal lung exam. Benign abdominal exam except for bruising of his right lower quadrant. The Tiwari is draining foul-smelling urine. No spinal tenderness. He had difficulty moving his right hip and he had a laceration inferior to the right patella that looks older than the 12 hours he stated he was on the floor. He is obeying commands. His sodium was 136. Potassium 6.4. Anion gap 15. BUN 42, creatinine 1.8. Gl ucose 335. Total bili is 1.2. Lactic acid is 5.0. AST is 756, ALT 257 and alk phos 140. Previous liver enzymes July 04, 2021 were completely normal. They were also normal in April 2021. His chronic polycythemia usually has him with an elevated white cell count at 12-15,000. Today it is 28.9. Hemoglobin is usually 18-19 and today it is 20.2. Platelets are 195. The ER provider did put in a central line Imaging includes hip and pelvis x-ray, lower extremity x-rays, femur x-ray, knee x-ray, head CT, cervical spine CT, chest CT, abdomen pelvis CT and chest x-ray. All of these films showed: + A Tiwari catheter with a decompressed bladder, bilateral fat-containing inguinal hernias left greater than right + Mildly enlarged heart, no pericardial effusion, coronary artery calcification, no PE, fractures involving the left posterior ninth, 10th, and 11th ribs but there is a periosteal reaction already seen. No acute fractures + Layering gallstones with simple renal cysts. A splenectomy. + Negative for acute fractures of the C-spine, knee, femur + No acute intracranial hemorrhage Past medical history: 1. Polycythemia with hemoglobin at 18 at diagnosis 2012. Negative JAK2, JAMMIE R, MPL mutations. Erythropoietin level elevated. Unable to do phlebotomy since May 2020 due to poor venous access. 2. Central sleep apnea/ hyponea dx 2014. on BiPAP machine. Patient is compliant but secondary polycythemia is most likely present due to central apnea 3. Chronic leukocytosis since 2012, secondary to splenectomy done for rupture 1993. Presented March 2010 for lymphadenopathy and elevated white cell count. Initially thought to have lymphoma but Negative flow cytometry. Negative PET scan. 4. Urinary retention due to Multiple diagnoses in chart. BPH with retention/Turp 2014, neurogenic bladder, bladder muscle dysfunction all quoted in the chart. Chronic long-term indwelling Tiwari catheter. Had neurostimulator of the bladder put in by Dr. Mary 2014. 5. CAD/idiopathic cardiomyopathy/chronic atrial fibrillation on Eliquis. Has had 2 cardioversions that were unsuccessful with [place] [facility]. He was found to have A. fib incidentally as part of a preop evaluation for prostate surgery. He had no symptoms. Echocardiogram 2014 with LVEF 50% to 55%. Marked enlargement of both left and right atria. No significant valvular heart disease. Cardioverted 12/2014 and again early July 2015. Then late July 2015 presented to ER with acute on chronic combined systolic/diastolic heart failure. Sinus bradycardia with that eval. Recurrence of afib by 11/2018 and no strategy for any further rhythm control. to stay on eliquis. [place] to have chronic diastolic heart failure and EF ok. 6. Type 2 diabetes mellitus, with complications of CKD and neuropathy, on long- term use of insulin 7. Hypertension 8. Osteoarthritis with Right knee medial meniscectomy and medial femoral chondroplasty 2006. Followed by medial compartment arthroplasty 2007.Followed by total compartment arthroplasty 2016. Left knee arthroplasty 2017 as well. 9. Abdominal ventral hernia 10. obesity 11. onychomycosis 12. Diverticulitis 05/2020 13. Lumbar spinal stenosis, Status post L5-S1 laminectomy and foraminotomy, status post right L5/S1 LC 14. Squamous cell carcinoma of left ear 15. Mild cognitive impairment 16. Hypertriglyceridemia 17. Early open angle glaucoma, macular drusen, mild nonprolif retinopthy without macular edema, posterior vitreous detachment, RUL cyst, pseuophakia. Cataracts removed 2017 and Yag capsulotomy done 2019. 18. Hernia repair 19. Colonoscopy 20. L hydrocele 21. 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 Reconstruction October 2006. 22. Left thumb partial amputation 23. vasectomy 24. Pneumonia in the past resulting in a diagnosis of reactive airways disease Allergic to beta-blockers, pioglitazone, and statins Medications: Lantus insulin 35 to 45 units at night NovoLog insulin 5 units with meals Coreg 6.25 daily Cozaar 25 mg daily Telmisartan 80 mg daily Prednisone 10 mg daily Eliquis 5 mg p.o. twice daily Glipizide 15 mg p.o. twice daily Metformin 1000 mg every afternoon and 1500 mg every morning Lasix 80 mg daily Amlodipine 10 mg daily Potassium chloride 20 mEq daily Ozark-3 fish oil 1000 mg twice daily A multivitamin daily Magnesium oxide 200 mg daily Vitamin D3 200 international units daily Social history: No history of recreational substance abuse. Non-smoker. Never did smoke. Rare alcohol drinker. 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 So he lives alone. The long-term plan is for his daughter to build an apartment next to her car shop. He plans on living that an apartment. Family history: Father of heart attack at age 49 Mother of congestive heart failure age 84 1 sibling had cancer at age 50 unknown name Daughter w DM Previous level of function: Does not use any durable medical equipment. He says he still drives a car. Has been relatively independent but his kids drop off food and help him a lot with chores, housekeeping. Review of Systems: no recent weight loss or changes, no fever chills sweats ENT:Denies sore throat, runny nose, ear pain. Denies any problems with swallowing. Pulmonary: No coughing, wheezing, chest congestion Cardiac: Chronic pedal edema but no orthopnea, chest pain, and cardiovascular endurance is minimal GI:No appetite. But denies any change in bowel or bladder habits. No abdominal pain. :Has a chronic indwelling Tiwari catheter. Denies flank pain. Denies any blood in his urine Musculoskeletal: Burning/Tingling sensation in his feet. Constant joint pain especially in his weight bearing large joints. His back always hurts. He uses a combination of Thera works, hemp cream, and blue ice cream when his back aches .Fell in the stands at [employer] 01/29 and as he sat, fell against metal seats behind him and heard pop of ribs. Films confirmed fx. Endocrine: Denies polyuria, polyphagia, Polydipsia. Skin: No new rashes, no new lesions Psych:No depression, delusions, hallucinations, suicidal ideation AVIATION MECHANIC:Syncope once in the past. Thinks his memory is fine. No focal deficits. His feet and lower legs burn from neuropathy. Examination: Temperature is 35.7. Heart rate 72. Blood pressure is 163/105. Respirations 28. 96% on room air. He is a tall, alert, elderly gentleman with a muñoz, alert and oriented, and his main distress is his back and hips aching. Especially his right hip ENT: Exceedingly dry lips and mouth. Normal facial symmetry. Occasional clear ing of his throat but the back of the pharynx is normal. Normal speech. Neck: Supple, shotty adenopathy Lungs: Diminished breath sounds at the bases, occasional cough productive of phlegm, but essentially clear. No crackles rhonchi wheezing. No increased respiratory effort with talking to me. No shortness of breath at all. Cardiac: Irregular rate and rhythm. Rate is controlled Abdomen: Hugely protuberant pannus. He smiles and says "I like to eat a lot". He has a left mid abdomen not in the subcutaneous area where he does insulin shots. Some bruising in the right lower quadrant. But no rebound or guarding or masses or fluid wave. Normal bowel sounds. : Tiwari is draining brownish-orange urine. It is incredibly foul-smelling. Extremities: Right great toe is red. Slightly warm. Not painful. Onychomycosis in all toenails. Skin is slightly tight and shiny but there is no edema. No clubbing or cyanosis. Warm. Neurologically: Alert, oriented x3. Following two-step commands. Moving all extremities voluntarily as well as to my command. Toes are downgoing. No tremors. His lower back is very uncomfortable. Lab and plain films reviewed in history of present illness Assessment/plan: 1. Rhabdomyolysis. Nontraumatic. Now with generalized weakness from laying on the floor. No crush injury. He just appears to have laid on the floor for too l polo last night. No acute mild acute kidney injury with this. Baseline creatinine is 1 and is 1.8 today. Plan: Inpatient status due to all the other comorbidities IV fluids for hydration 2. Leukocytosis With SIRS criteria being positive This gentleman has a complicated case and that he already has polycythemia with a chronically elevated white cell count. So the question is if his white cell count elevated because of infection or because of demargination and dehydration. He has tachycardia, tachypnea, lactic acidosis indicating he may have possible sepsis. Or his lactic acidosis could also be coming from his metformin. And other than urine, there is no true source of infection seen in all of his imaging studies. He seems to be describing rigors and chills the last 2 nights. Source of infection Would most likely be the foul-smelling urine. There is no evidence of pneumonia, diverticulitis, cholecystitis on his imaging studies. Plan: Triple antibiotic therapy for sepsis with an unknown source will continue Reassess in the next 24 hours to see if I can stop his antibiotics or adjust them appropriately Urine submitted for culture Blood cultures already done in ED and I will review those when they have resulted 3. Lactic acidosis. In this gentleman's case lactic acidosis could be coming from liver, dehydration, UTI, or simply his metformin in the face of dehydration. Plan: He will be on empiric antibiotic therapy IV fluids Repeat lactic acid in 3 to 4 hours to assess response No use of metformin while he is here 4. Polycythemia Has not had phlebotomy since 2020. He now has a central line in place. I do not know if it can be used for that but if his cell count does not drop in the next 24 to 48 hours, I will contact hematology to see if phlebotomy would be in order 5. Type 2 diabetes mellitus, with complication of neuropathy, on long-term use of insulin, uncontrolled with hyperglycemia In the face of anorexia and poor appetite, I hesitate to resume his usual dosing from home. I will resume long-acting insulin with Semglee 20 units at night. And I will do sliding scale insulin. I will hold off on his sulfonylurea and metformin. The latter especially in view of lactic acidosis. Reassess tomorrow. Low-carb diet. A1c in the morning. 6. Central sleep apnea He will need his BiPAP here in the hospital. I will have respiratory contact family to bring that in for him. 7. Chronic indwelling Tiwari catheter Verify if it was changed out in the ER. If it was not we will put a new one in. 8. Hypertension Blood pressure was initially normal at 121/70 when he came to the emergency room. As his stay in the emergency room progressed, he had developed a blood pressure of 163/105 4 hours later. Home medications include telmisartan, Cozaar, carvedilol, and Norvasc. He developed a cough with lisinopril so he is not on an JOSE inhibitor. Plan: I will see if I can access his clinic records to find out why he is on telmisartan and Cozaar Resume blood pressure medications 9. Elevated liver enzymes. He does not have a history of alcohol abuse. He does have rhabdo and liver enzymes can be elevated in the face of that. Denies RUQ or epigastric pain. Plan: Check acute hepatitis panel CT of abdomen already confirms cholelithiasis but no cholecystitis Check toxicology screen 10. Chronic atrial fibrillation Resume his Coreg, continue Eliquis 11. Chronic diastolic heart failure Currently seems euvolemic. He is dry on oral exam. Kidney slightly dry as well with a slightly raised creatinine. But there are no crackles no JVD and is comfortable from a respiratory perspective. When he is stable I will resume his usual medications. 12. Acute pain. He says he is feeling a lot better and the most uncomfortable thing about all this is just laying on the floor and how much is back and hips aches. He is wanting reassurance that I have ordered pain medicine for him. I have ordered Tylenol, [employer], and morphine. 13. Hospital issues. DVT prophylaxis with [place] Attestation that this patient will be evaluated and discharged within 96 hours
[2022-03-03 14:46] LABS: MUDS CUTOFF CONCENTRATIONS CUTOFF CONC BELOW:
[2022-03-03 14:53] LABS: LACTIC ACID, VENOUS 3.1 mmol/L (0.5-2.2)
[2022-03-03 14:54] LABS: GLUCOSE, URINE (UA) 100 mg/dL (NEGATIVE); KETONES,URINE (UA) TRACE mg/dL (NEGATIVE); LEUKOCYTE ESTERASE, URINE TRACE (NEGATIVE); NITRITE,URINE POSITIVE (NEGATIVE); OCCULT BLOOD,URINE LARGE (NEGATIVE); PH,URINE 6.5 PH (5.0-7.5); PROTEIN,URINE >=300 mg/dL (NEGATIVE); UROBILINOGEN,URINE 1 (NORMAL) E.U./dL (NORMAL)
[2022-03-03 14:57] LABS: CLARITY,URINE CLOUDY (CLEAR)
[2022-03-03 14:58] LABS: BILIRUBIN,URINE NEGATIVE (NEGATIVE); ICTOTEST,URINE NEGATIVE
[2022-03-03 15:05] LABS: AMORPHOUS SEDIMENT,UR Moderate /LPF; BACTERIA,URINE Moderate /HPF (None Seen); RBC,URINE TNTC /HPF (0-5); SQUAMOUS EPITHELIAL CELL,UR FEW Squamous (<= Few); WBC,URINE >25 /HPF (0-3)
[2022-03-03 15:10] LABS: AMPHETAMINE SCREEN,URINE NEGATIVE (NEGATIVE); BARBITURATE SCREEN,UR NEGATIVE (NEGATIVE); BENZODIAZEPINES SCREEN, URINE NEGATIVE (NEGATIVE); COCAINE SCREEN URINE NEGATIVE (NEGATIVE); METHADONE SCREEN, URINE NEGATIVE (NEGATIVE); METHAMPHETAMINES SCREEN, URINE NEGATIVE (NEGATIVE); OPIATE SCREEN, URINE NEGATIVE (NEGATIVE); OXYCODONE SCREEN, URINE POSITIVE (NEGATIVE); PROPOXYPHENE SCREEN, URINE NEGATIVE (NEGATIVE); THC CANNABINOID SCREEN, URINE NEGATIVE (NEGATIVE); TRICYCLIC ANTIDEPRESSANT,URINE NEGATIVE (NEGATIVE)
[2022-03-03 15:40] LABS: B. PARAPERTUSSIS- RESP PCR PAN NOT DETECTED; B. PERTUSSIS- RESP PCR PANEL NOT DETECTED; C. PNEUMONIAE- RESP PCR PANEL NOT DETECTED; CORONAVIRUS 229E-RESP PCR NOT DETECTED; CORONAVIRUS HKU1-RESP PCR NOT DETECTED; CORONAVIRUS NL63-RESP PCR NOT DETECTED; CORONAVIRUS OC43-RESP PCR NOT DETECTED; HUMAN METAPNEUMOVIRUS NOT DETECTED; INFLUENZA A- RESP PCR PANEL NOT DETECTED; INFLUENZA B - RESP PCR PANEL NOT DETECTED; M. PNEUMONIAE- RESP PCR PANEL NOT DETECTED; PARAINFLUENZA VIRUS 1 NOT DETECTED; PARAINFLUENZA VIRUS 2 NOT DETECTED; PARAINFLUENZA VIRUS 3 NOT DETECTED; PARAINFLUENZA VIRUS 4 NOT DETECTED; RHINOVIRUS/ENTEROVIRUS NOT DETECTED; RSV- RESP PCR PANEL NOT DETECTED; SARS-CoV-2 -RESP PCR PANEL NOT DETECTED
--- NOTE | 2022-03-03 16:23 | PHARMACY PROGRESS NOTE ---
- Best Possible Medication History Admit Date and Time: 03/03/22 1347 Processed by: Pharmacy Medication History completed: Yes Patient Interview: Completed Secondary Source(s): Physician records, Pharmacy records, Insurance records As the person ultimately responsible for medication therapy, providers are able to order a medication from an existing home medication list in [facility] via the "Reconcile Routine" prior to Confirmation of that medication by support analyst. Such practice is discouraged except when the physician, in their clinical judgment, deems that a medical need exists for a medication without regard to previous use.
[2022-03-03] MEDS: SODIUM CHLORIDE 0.9% 1,000 ML IV SCH (16:43)
[2022-03-03] MEDS: INSULIN LISPRO 300 UNIT/3 ML PEN SUBQ SCH ×3 (16:53→21:12)
[2022-03-03] MEDS: SODIUM CHLORIDE FLUSH 0.9% 10 ML SYRINGE IVP SCH (16:54)
[2022-03-03] MEDS: CEFEPIME 2 GM in SODIUM CHLORIDE 0.9% MINIBAG 100 ML IV SCH ×2 (18:43→22:06)
[2022-03-03 18:51] LABS: LACTIC ACID, VENOUS 3.1 mmol/L (0.5-2.2)
[2022-03-03] MEDS: metroNIDAZOLE 500 MG/100 ML 500 MG/100 ML BAG IV SCH ×2 (19:29→22:40)
[2022-03-03] MEDS ORDERED: INSULIN GLARGINE-YFGN 300 UNIT/3 ML PEN SUBQ SCH (21:00)
[2022-03-03] MEDS: OMEGA-3 ACID ETHYL ESTERS 1 GM CAPSULE PO SCH (21:10)
[2022-03-03] MEDS: APIXABAN 5 MG TABLET PO SCH (21:11)
[2022-03-04] MEDS: HYDROcod/ACETAM 5/325 MG TABLET PO PRN ×3 (00:23→09:18)
[2022-03-04] MEDS: SODIUM CHLORIDE FLUSH 0.9% 10 ML SYRINGE IVP PRN ×2 (01:25→05:36)
[2022-03-04] MEDS: SODIUM CHLORIDE FLUSH 0.9% 10 ML SYRINGE IVP SCH ×3 (01:25→16:59)
[2022-03-04 01:39] LABS: LACTIC ACID, VENOUS 2.5 mmol/L (0.5-2.2)
[2022-03-04] MEDS: SODIUM CHLORIDE 0.9% 1,000 ML IV SCH (04:30)
[2022-03-04] MEDS: CEFEPIME 2 GM in SODIUM CHLORIDE 0.9% MINIBAG 100 ML IV SCH (05:36)
[2022-03-04 05:56] LABS: BASOPHILS % (AUTO) 0.2 %; HCT - HEMATOCRIT 52.1 % (42.0-52.0); HGB - HEMOGLOBIN 17.5 g/dL (14.0-18.0); LYMPHOCYTES % (AUTO) 11.9 %; MEAN CORPUSCULAR HEMOGLOBIN 32.5 pg (27.0-31.0); MEAN CORPUSCULAR HGB CONC 33.6 g/dL (32.0-36.0); MEAN CORPUSCULAR VOLUME 96.8 fL (80.0-94.0); MEAN PLATELET VOLUME 12.4 fL (7.4-11.4); MONOCYTES % (AUTO) 12.5 %; NEUTROPHILS % (AUTO) 74.8 %; PLT - PLATELET COUNT 158 10^3/uL (130-450); RED BLOOD COUNT 5.38 10^6/uL (4.70-6.10); RED CELL DISTRIBUTION WIDTH 14.8 % (12.0-15.0); WHITE BLOOD COUNT 21.4 x10^3/uL (4.8-10.8)
[2022-03-04 06:04] LABS: LACTIC ACID, VENOUS 2.1 mmol/L (0.5-2.2)
[2022-03-04 06:09] LABS: ABNORMAL LYMPHS % (MANUAL) 0 %
[2022-03-04 06:15] LABS: ALBUMIN 2.3 g/dL (3.2-5.5); ALBUMIN/GLOBULIN RATIO 0.6 (1.0-2.2); BILIRUBIN,TOTAL 1.1 mg/dL (0.2-1.0); CREATININE 3.5 mg/dL (0.6-1.2); POTASSIUM 5.5 mmol/L (3.5-5.0); TOTAL PROTEIN 5.9 g/dL (6.7-8.2)
[2022-03-04] MEDS: metroNIDAZOLE 500 MG/100 ML 500 MG/100 ML BAG IV SCH (06:23)
[2022-03-04 06:29] LABS: BAND NEUTROPHILS % (MANUAL) 5 %; DIFFERENTIAL COMMENT MANUAL DIFFERENTIAL; LYMPHOCYTES # (MANUAL) 1.5 10^3/uL (1.5-3.5); LYMPHOCYTES % (MANUAL) 7 %; MONOCYTES # (MANUAL) 2.8 10^3/uL (0.0-1.0); NEUTROPHILS # (MANUAL) 17.1 10^3/uL (1.5-6.6); PLATELET ESTIMATE, MANUAL NORMAL (130-450,000) (NORMAL); RBC MORPHOLOGY (MULTIPLE) NORMAL APPEARANCE (NORMAL)
[2022-03-04 08:03] LABS: ESTIMATED AVERAGE GLUCOSE 174 mg/dL (70-100); HEMOGLOBIN A1c% 7.7 % (4.27-6.07)
[2022-03-04] MEDS: INSULIN LISPRO 300 UNIT/3 ML PEN SUBQ SCH ×7 (08:39→21:12)
[2022-03-04] MEDS: OMEGA-3 ACID ETHYL ESTERS 1 GM CAPSULE PO SCH ×2 (08:41→21:11)
[2022-03-04] MEDS: MULTIVITAMIN TABLET PO SCH (08:41)
[2022-03-04] MEDS: APIXABAN 5 MG TABLET PO SCH (08:41)
[2022-03-04] MEDS ORDERED: CARVEDILOL 6.25 MG PO SCH (09:00)
--- NOTE | 2022-03-04 09:19 | XRAY Report ---
PROCEDURE: Abdomen 1 View X-Ray INDICATIONS: new renal failure and low UOP, TECHNIQUE: One view of the abdomen acquired. COMPARISON: Correlation is made with recent prior imaging, 03/03/2022. FINDINGS: Surgical changes and devices: There is a right-sided sacral stimulator. A Tiwari catheter is seen. Bowel: Bowel gas pattern is normal. Soft tissues: No suspicious abdominal calcifications. Visualized solid organ contours appear normal in size. Bones: No suspicious bony lesions. Age-appropriate degenerative changes are seen. IMPRESSION: No plain film explanation for the patient's presenting symptoms can be seen. Nonobstructive bowel gas pattern. Postoperative and degenerative changes are seen. Reviewed by: Wayne Doss MD on 03/04/2022 8:18 AM [facility] Approved by: Wayne Doss MD on 03/04/2022 8:18 AM [facility] Station ID: [id number]
[2022-03-04] MEDS: NIACIN 500 MG PO SCH (11:17)
--- NOTE | 2022-03-04 11:21 | PHARMACY PROGRESS NOTE ---
- Therapy Status Vancomycin regimen day #: 2 Therapy status: Awaiting steady state Basis for treatment: Empirical Treatment indication: SEPSIS Trough goal: 15-20 - RIGO Risk Risk level for Acute Kidney Injury: High Acute Kidney Injury risk factors: Wt >100kg or BMI >40, IV contrast within 72 hrs, Goal trough >15, Diabetes, Sepsis - Monitoring and Recommendation Clinical response to treatment: I&O Previous 24 hours 03/02/22 03/03/22 03/04/22 23:59 23:59 23:59 Intake Total 5789.400 2260 Output Total 175 30 Balance 5614.400 2230 Lab Results 03/04/22 03/03/22 05:43 11:10 BUN 64 H 42 H Creatinine 3.5 H 1.8 H Estimated GFR (MDRD) 17 L 36 L Cultures 03/03/22 14:40 Urine,Catheterized Urine Culture - Preliminary 03/03/22 12:45 Blood Blood Culture (PCR) - Final 03/03/22 12:45 Blood Blood Culture - Preliminary Monitoring plan: Daily serum creatinine, Draw trough early Next trough due prior to maintenance dose #: 1 Next trough due (date/time): 03/05 AT 1200 Areas for additional monitoring: IV to PO when appropriate, Therapy de- escalation based on culture results Pharmacy recommendation: Decrease dose (Scr went from 1.8 to 3.5. Decrease frequency from q24h to q48h next dose will be 03/05.)
[2022-03-04] MEDS ORDERED: VANCOMYCIN INJ 1 GM, VANCOMYCIN INJ 500 MG in SODIUM CHLORIDE 0.9% 500 ML IV SCH (13:00)
[2022-03-04 13:04] LABS: LACTIC ACID, VENOUS 2.6 mmol/L (0.5-2.2)
--- NOTE | 2022-03-04 14:54 | PROVIDER PROGRESS NOTE ---
Progress Note March 04, 2022 2:47 PM Patient has been seen twice today. He is feeling better, sitting up in bed eating, but he has had almost no urine output between yesterday and today. He had 175 cc out before midnight and March 03. Since midnight last night he is only put out 30 cc. Tiwari has been flushed, and bladder scan shows no urine in his bladder. Overnight he has had gram-positive cocci growing in his blood cultures. He denies chest pain, palpitations. During my exam he does have a occasional cough and he says that is not new for him. Nonproductive. He says he is not even aware of it until I pointed out to him. Active Medications Hydrocodone Bitart/Acetaminophen (Hydrocod/Acetam 5/325 Mg Tablet) 1 tab PO Q4HR PRN PRN Reason: Pain 5 to 7 Last Admin: 03/04/22 09:18 Dose: 1 tab Apixaban (Apixaban 2.5 Mg Tablet) 2.5 mg PO BID [facility] Cefepime HCl 2 gm/ Sodium (Chloride) 100 mls @ 200 mls/hr IV BID [facility] Vancomycin HCl 1 gm/Vancomycin HCl 500 mg/ Sodium Chloride 500 mls @ 250 mls/hr IV Q48H [facility] Insulin Glargine-yfgn (Insulin Glargine-Yfgn 300 Unit/3 Ml Pen) 24 unit SUBQ QPM [facility] Insulin Human Lispro (Insulin Lispro 300 Unit/3 Ml Pen) 2 - 10 unit SUBQ 0800,1200,1700,2100 [facility]; Protocol Last Admin: 03/04/22 14:05 Dose: 8 unit Insulin Human Lispro (Insulin Lispro 300 Unit/3 Ml Pen) 8 unit SUBQ TIDWM [facility] Last Admin: 03/04/22 14:05 Dose: 8 unit Morphine Sulfate (Morphine 2 Mg/Ml Carpuject) 2 mg IVP Q2HR PRN PRN Reason: Pain 8 to 10 Multivitamins (Multivitamin Tablet) 1 tab PO DAILYWM [facility] Last Admin: 03/04/22 08:41 Dose: 1 tab Etecb-3-Sbtd Ethyl Esters ([place]-3 Acid Ethyl Esters 1 Gm Capsule) 1 gm PO BID [facility] Last Admin: 03/04/22 08:41 Dose: 1 gm Ondansetron HCl (Ondansetron Odt 4 Mg Tablet) 4 mg TL Q6HR PRN PRN Reason: Nausea / Vomiting Ondansetron HCl (Ondansetron 4 Mg/2 Ml Vial) 4 mg IVP Q6HR PRN PRN Reason: Nausea / Vomiting Niacin 500 Mg (Capsule.Er) 1 each PO DAILY [facility] Last Admin: 03/04/22 11:17 Dose: Not Given Sodium Chloride (Sodium Chloride Flush 0.9% 10 Ml Syringe) 10 ml IVP PRN PRN PRN Reason: NEEDED PER PROVIDER ORDERS Last Admin: 03/04/22 05:36 Dose: 30 ml Sodium Chloride (Sodium Chloride Flush 0.9% 10 Ml Syringe) 10 ml IVP 0100,0900,1700 [facility] Last Admin: 03/04/22 08:41 Dose: 10 ml Apixaban [Eliquis] 5 mg PO BID 06/24/19 Cholecalciferol (Vitamin D3) [Vitamin D3] 200 unit PO DAILY 06/24/19 Furosemide [Lasix] 80 mg PO DAILY 06/24/19 Insulin Glargine,Hum.rec.anlog [Basaglar Kwikpen U-100] 30 unit SQ BID 06/24/19 Multivitamin [Multiple Vitamins] 1 tab PO DAILY 06/24/19 Niacin 500 mg PO DAILY 06/24/19 [place]-3/Dha/Epa/Fish Oil [Fish Oil 1,000 mg Softgel] 1,000 mg PO BID 06/24/19 Potassium Chloride 20 meq PO DAILY 06/24/19 amLODIPine [Norvasc] 10 mg PO DAILY 06/24/19 glipiZIDE [Glipizide] 15 mg PO BID 06/24/19 metFORMIN [Glucophage] 1,000 mg PO QPM 06/24/19 metFORMIN [Glucophage] 1,500 mg PO DAILY 06/24/19 Carvedilol [Coreg] 6.25 mg PO DAILY 03/03/22 Insulin Aspart [NovoLOG] 5 unit SQ TID 03/03/22 Losartan [Cozaar] 25 mg PO DAILY 03/03/22 Magnesium Oxide [Magnesium] 200 mg PO DAILY 03/03/22 Telmisartan 80 mg PO DAILY 03/03/22 predniSONE [Deltasone] 10 mg PO MOWEFR 03/03/22 exam: Temperature is 36.5. Heart rate 66. Blood pressure 130/70. Respirations 20. He is 94% on room air. He did get his home CPAP overnight last night. Alert, oriented elderly gentleman who is quite comfortable, vivacious speaker. Neck has shotty adenopathy but is supple no JVD Lungs are clear without crackles rhonchi wheezing or increased respiratory effort. If he gets up to go to the bathroom and then get back in bed he is a little tachypneic but that quickly resolves. Irregular rate and rhythm. Systolic murmur, rate is controlled. The highest has been is 92 and is staying in the 60s. Abdomen is hugely obese and protuberant. Hypoactive bowel sounds, nontender, and he is eating 100% of his food. He had a BM yesterday and he had a BM today. Tiwari is draining orange-brown urine. More bright orange. Continues to have foul-smelling urine. Extremities are with trace edema. Nonpitting. Skin is tight, reddish over malleolar I. Continues to have onychomycosis with poor hygiene of his feet. He is alert, oriented, following commands. Lucid historian. Normal speech pattern. No focal deficits. Sodium 133. Potassium 5.5. BUN 64. Creatinine was 1.8 and is now 3.5. A1c is 7.7%. Lactic acid was 2.5, 2.1, 3.0 this morning, and this afternoon 2.6. Liver enzymes continue to be elevated with an AST of 848, ALT 312, total bili 1.1. White cell count is slightly down to 21.4. Hemoglobin is down from 20 and is 17.5. Platelets stable at 158. 2 out of 4 bottles are positive for gram-positive cocci in the aerobic and anaerobic. The other set of blood cultures are negative. PCR states this is staph epidermidis. Urine culture is in progress. Results pending. Assessment/plan: 1. Acute oliguric renal failure On admission I thought that his bump in his creatinine was just a mild rise due to dehydration and laying on the floor. His CPK was 55,000. Since yesterday to today he has had minimal urine output and his creatinine has sharply increased. Plan: We will have to balance IV fluids in the face of diastolic heart failure, and need for hydration in the face of an elevated CPK Check KUB to make sure Tiwari is in place Check bladder scan CT on admission confirmed that there is no hydronephrosis or obstruction 2. Rhabdomyolysis. Nontraumatic. Now with generalized weakness from laying on the floor. No crush injury. He just appears to have laid on the floor for too long last night. mild acute kidney injury with this. Baseline creatinine is 1 and is 1.8 on admission. His CPK was 55,000 yesterday. He now appears to be in complete renal failure. His rhabdomyolysis may be more detrimental than I thought. Plan: IV fluids for hydration Recheck CPK, bmp this afternoon. Recheck Tiwari placement that was done yesterday with a KUB 3. Leukocytosis With SIRS criteria being positive This gentleman has a complicated case and that he already has polycythemia with a chronically elevated white cell count. So the question is if his white cell count elevated because of infection or because of demargination and dehydration. He had tachycardia, tachypnea, lactic acidosis indicating he may have possible sepsis. Or his lactic acidosis could also be coming from his metformin. And other than urine, there is no true source of infection seen in all of his imaging studies. He seems to be describing rigors and chills the last 2 nights. He has received IV fluids and empiric antibiotic therapy. His tachypnea, tachycardia have resolved. White cell count has come down but he has an elevated white cell count that is chronically elevated. Urine continues to be foul-smelling. Abdominal exam does not indicate diverticulitis or an acute abdominal process. Lung exam does not indicate pneumonia. He has a cough but it is chronic and nonproductive. Skin exam shows abrasions and superficial cuts but no abscesses or decubiti. Plan: Taper down his antibiotics. I think the source is urine so I am going to keep him on cefepime. Because he has gram-positive cocci in his blood we will kinza nue the vancomycin. With his renal failure he may not get another dose for a day or 2. Considering it is staph epi, and most likely contamination and may be dropping the vancomycin soon as well. I will stop Flagyl today. Adjust antibiotics on the basis of what urine culture finds. 4. Lactic acidosis. In this gentleman's case lactic acidosis could be coming from liver, dehydration, UTI, or simply his metformin in the face of dehydration. The level is not going down to normal. I am cautiously optimistic that infection is adequately being treated. His level may not be resolving because he is in renal failure. Plan: Continue empiric antibiotic therapy for UTI Continue antibiotics No metformin 5. Polycythemia Has not had phlebotomy since 2020. He now has a central line in place. Hemoglobin level has dropped to 17. Acceptable. I do not think I will order phlebotomy for right now. 6. Type 2 diabetes mellitus, with complication of neuropathy, on long-term use of insulin, uncontrolled with hyperglycemia In the face of anorexia and poor appetite, I hesitate to resume his usual dosing from home. I resumed long-acting insulin with Semglee 20 units at night. Added 5 units lispro with meals. And I will do sliding scale insulin. I am holding off on his sulfonylurea and metformin. The latter especially in view of lactic acidosis. A1c is 7.7%. March 03 glucose: 317, 288 Glucose 243, 300 today Plan: Increase Semglee from 20 to 24 units Increased to a higher sliding scale Increase lispro from 5 units with meals to 8 units with meals 7. Central sleep apnea Family has brought in his CPAP. He is wearing it in his sleep. 8. Chronic indwelling Tiwari catheter Tiwari catheter was not changed out in the ED. It was changed out with nursing staff here on the floor. Difficult to get the same size he had at home. But its been done. 9. Hypertension Blood pressure was initially normal at 121/70 when he came to the emergency room. As his stay in the emergency room progressed, he had developed a blood pressure of 163/105 4 hours later. Home medications include telmisartan, Cozaar, carvedilol, and Norvasc. He developed a cough with lisinopril so he is not on an JOSE inhibitor. His clinic chart tells me that he cannot do lisinopril or an JOSE inhibitor and that is why he was changed over to an ARB. But his clinic chart does not tell me why he is on telmisartan and Cozaar. Plan: I will talk to his primary care provider tomorrow. Blood pressure is occasionally high. Yesterday afternoon it was 173/114. But today has been 112 systolic and 130 systolic. Not on any medications. Resume medications when blood pressure consistently elevated. 10. Elevated liver enzymes. He does not have a history of alcohol abuse. He does have rhabdo and liver enzymes can be elevated in the face of that. Denies RUQ or epigastric pain. Plan: Check acute hepatitis panel Continue to monitor (his liver CT shows normal size and demonstrated no suspicious lesions, prior splenectomy. No hydronephrosis. 11. Chronic atrial fibrillation On admission, Jamal was on his medication list. He explained to the nurse that that was stopped. Pharmacy was going to be verifying this and reconcile his medication correctly. As of this morning, Jamal is still on his medication list and it has been verified by pharmacy. I will need to investigate this. The patient does not like the idea of being on Coreg. His Eliquis dose needs to be reduced in the face of renal failure. 12. Chronic diastolic heart failure On admission he had a very dry oral mucosa, creatinine was slightly raised at 1.8, but he appeared euvolemic and that there were no crackles, no JVD and was comfortable from a respiratory perspective. He received 5789 cc intake yes terday. Since midnight last night he has received 2500 cc. Today, in the face of complete renal failure and no urine output, I am stopping his IV fluids. He is drinking plenty of fluids. For me, he actually asked for another 500 cc of ice water and I brought it for him. 13. Acute pain. He says he is feeling a lot better and the most uncomfortable thing about all this is just laying on the floor and how much is back and hips aches. He is wanting reassurance that I have ordered pain medicine for him. I have ordered Tylenol, [place], and morphine.
[2022-03-04 16:27] LABS: LACTIC ACID, VENOUS 2.7 mmol/L (0.5-2.2)
[2022-03-04 17:02] LABS: CALCIUM 7.2 mg/dL (8.5-10.3); CREATININE 4.4 mg/dL (0.6-1.2); POTASSIUM 5.7 mmol/L (3.5-5.0)
[2022-03-04 19:46] LABS: LACTIC ACID, VENOUS 2.4 mmol/L (0.5-2.2)
[2022-03-04] MEDS ORDERED: CEFEPIME 2 GM in SODIUM CHLORIDE 0.9% MINIBAG 100 ML IV SCH (21:00)
[2022-03-04] MEDS: INSULIN GLARGINE-YFGN 300 UNIT/3 ML PEN SUBQ SCH (21:11)
[2022-03-04] MEDS: APIXABAN 2.5 MG TABLET PO SCH (21:11)
[2022-03-05] MEDS: SODIUM CHLORIDE FLUSH 0.9% 10 ML SYRINGE IVP SCH ×3 (02:16→16:56)
[2022-03-05] MEDS: SODIUM CHLORIDE FLUSH 0.9% 10 ML SYRINGE IVP PRN ×4 (02:16→16:56)
[2022-03-05 06:08] LABS: BASOPHILS % (AUTO) 0.2 %; EOSINOPHILS % (AUTO) 0.8 %; HCT - HEMATOCRIT 49.6 % (42.0-52.0); HGB - HEMOGLOBIN 16.9 g/dL (14.0-18.0); LYMPHOCYTES % (AUTO) 17.4 %; MEAN CORPUSCULAR HEMOGLOBIN 33.1 pg (27.0-31.0); MEAN CORPUSCULAR HGB CONC 34.1 g/dL (32.0-36.0); MEAN CORPUSCULAR VOLUME 97.3 fL (80.0-94.0); MEAN PLATELET VOLUME 11.7 fL (7.4-11.4); MONOCYTES % (AUTO) 11.1 %; NEUTROPHILS % (AUTO) 69.9 %; PLT - PLATELET COUNT 148 10^3/uL (130-450); WHITE BLOOD COUNT 19.5 x10^3/uL (4.8-10.8)
[2022-03-05 06:14] LABS: ABNORMAL LYMPHS % (MANUAL) 0 %
[2022-03-05 06:31] LABS: BAND NEUTROPHILS % (MANUAL) 2 %; DIFFERENTIAL COMMENT MANUAL DIFFERENTIAL; EOSINOPHILS # (MANUAL) 0.4 10^3/uL (0-0.7); LYMPHOCYTES # (MANUAL) 2.3 10^3/uL (1.5-3.5); LYMPHOCYTES % (MANUAL) 12 %; MONOCYTES # (MANUAL) 2.5 10^3/uL (0.0-1.0); NEUTROPHILS # (MANUAL) 14.2 10^3/uL (1.5-6.6); PLATELET ESTIMATE, MANUAL NORMAL (130-450,000) (NORMAL); RBC MORPHOLOGY (MULTIPLE) NORMAL APPEARANCE (NORMAL)
[2022-03-05 06:32] LABS: ALBUMIN 2.5 g/dL (3.2-5.5); ALBUMIN/GLOBULIN RATIO 0.7 (1.0-2.2); BILIRUBIN,TOTAL 1.1 mg/dL (0.2-1.0); CALCIUM 7.5 mg/dL (8.5-10.3); CREATININE 5.7 mg/dL (0.6-1.2); POTASSIUM 5.8 mmol/L (3.5-5.0); TOTAL PROTEIN 5.9 g/dL (6.7-8.2)
[2022-03-05] MEDS: INSULIN LISPRO 300 UNIT/3 ML PEN SUBQ SCH ×7 (08:11→20:54)
[2022-03-05] MEDS ORDERED: DEXTROSE 50% ABBOJECT 25 GM/50 ML SYRINGE IVP ONE ×2 (08:37→21:00)
[2022-03-05] MEDS ORDERED: INSULIN REGULAR HUMAN 300 UNIT/3 ML VIAL IVP ONE ×2 (08:38→21:00)
[2022-03-05] MEDS: HYDROcod/ACETAM 5/325 MG TABLET PO PRN ×2 (08:52→17:42)
[2022-03-05] MEDS: MULTIVITAMIN TABLET PO SCH (08:52)
[2022-03-05] MEDS: OMEGA-3 ACID ETHYL ESTERS 1 GM CAPSULE PO SCH ×2 (08:53→20:54)
[2022-03-05] MEDS: APIXABAN 2.5 MG TABLET PO SCH ×2 (08:53→20:53)
[2022-03-05] MEDS: SODIUM CHLORIDE 0.9% 1,000 ML IV SCH ×2 (09:28→16:56)
[2022-03-05] MEDS ORDERED: DEXTROSE 10% 250 ML IV ONE (10:00)
[2022-03-05] MEDS: NIACIN 500 MG PO SCH (10:11)
[2022-03-05] MEDS ORDERED: VANCOMYCIN INJ 1 GM, VANCOMYCIN INJ 500 MG in SODIUM CHLORIDE 0.9% 500 ML IV SCH (13:00)
[2022-03-05 17:33] LABS: CALCIUM 7.3 mg/dL (8.5-10.3); CREATININE 6.4 mg/dL (0.6-1.2); POTASSIUM 5.8 mmol/L (3.5-5.0)
[2022-03-05] MEDS: INSULIN GLARGINE-YFGN 300 UNIT/3 ML PEN SUBQ SCH (20:53)
[2022-03-05] MEDS: CEFEPIME 2 GM in SODIUM CHLORIDE 0.9% MINIBAG 100 ML IV SCH ×2 (20:53→20:57)
[2022-03-06] MEDS: SODIUM CHLORIDE 0.9% 1,000 ML IV SCH (01:18)
[2022-03-06] MEDS: SODIUM CHLORIDE FLUSH 0.9% 10 ML SYRINGE IVP SCH ×3 (05:31→17:15)
[2022-03-06] MEDS: SODIUM CHLORIDE FLUSH 0.9% 10 ML SYRINGE IVP PRN (05:31)
[2022-03-06 05:44] LABS: BASOPHILS # (AUTO) 0.1 10^3/uL (0.0-0.1); BASOPHILS % (AUTO) 0.3 %; EOSINOPHILS % (AUTO) 0.2 %; HCT - HEMATOCRIT 45.9 % (42.0-52.0); HGB - HEMOGLOBIN 15.3 g/dL (14.0-18.0); LYMPHOCYTES # (AUTO) 1.9 10^3/uL (1.5-3.5); LYMPHOCYTES % (AUTO) 9.6 %; MEAN CORPUSCULAR HEMOGLOBIN 32.6 pg (27.0-31.0); MEAN CORPUSCULAR HGB CONC 33.3 g/dL (32.0-36.0); MEAN CORPUSCULAR VOLUME 97.7 fL (80.0-94.0); MEAN PLATELET VOLUME 12.5 fL (7.4-11.4); MONOCYTES # (AUTO) 1.7 10^3/uL (0.0-1.0); MONOCYTES % (AUTO) 8.7 %; NEUTROPHILS # (AUTO) 15.8 10^3/uL (1.5-6.6); NEUTROPHILS % (AUTO) 80.2 %; NRBC ABSOLUTE COUNT (AUTO) 0.03 x10^3/uL; NUCLEATED RED BLOOD CELLS AUTO 0.2 /100WBC; PLT - PLATELET COUNT 151 10^3/uL (130-450); RED CELL DISTRIBUTION WIDTH 14.9 % (12.0-15.0); WHITE BLOOD COUNT 19.7 x10^3/uL (4.8-10.8)
[2022-03-06 06:46] LABS: ALBUMIN 2.1 g/dL (3.2-5.5); ALBUMIN/GLOBULIN RATIO 0.6 (1.0-2.2); BILIRUBIN,TOTAL 0.9 mg/dL (0.2-1.0); CALCIUM 7.2 mg/dL (8.5-10.3); TOTAL PROTEIN 5.7 g/dL (6.7-8.2)
[2022-03-06 06:51] LABS: POTASSIUM 6.8 mmol/L (3.5-5.0)
[2022-03-06] MEDS ORDERED: DEXTROSE 50% ABBOJECT 25 GM/50 ML SYRINGE IVP ONE (08:39)
[2022-03-06] MEDS ORDERED: SODIUM CHLORIDE 0.9% 1,000 ML IV SCH (08:44)
[2022-03-06] MEDS: INSULIN LISPRO 300 UNIT/3 ML PEN SUBQ SCH ×7 (09:23→21:35)
[2022-03-06] MEDS ORDERED: DEXTROSE 10% 250 ML IV ONE (09:30)
[2022-03-06] MEDS ORDERED: INSULIN REGULAR HUMAN 300 UNIT/3 ML VIAL IVP ONE (09:30)
[2022-03-06] MEDS ORDERED: VANCOMYCIN INJ 1 GM, VANCOMYCIN INJ 500 MG in SODIUM CHLORIDE 0.9% 500 ML IV SCH (10:00)
[2022-03-06] MEDS: MULTIVITAMIN TABLET PO SCH (10:20)
[2022-03-06] MEDS: APIXABAN 2.5 MG TABLET PO SCH ×2 (10:21→21:35)
[2022-03-06] MEDS: NIACIN 500 MG PO SCH (10:21)
[2022-03-06] MEDS: OMEGA-3 ACID ETHYL ESTERS 1 GM CAPSULE PO SCH ×2 (10:21→21:35)
--- NOTE | 2022-03-06 12:03 | XRAY Report ---
PROCEDURE: Chest 1 View X-Ray INDICATIONS: Poss CHF from oliguric kidney failure TECHNIQUE: One view of the chest was acquired. COMPARISON: Chest x-ray 03/03/2022 FINDINGS: Surgical changes and devices: Right-sided central venous catheter is unchanged. Lungs and pleura: There is mild appearance of hazy opacities within the bases appear more prominent when compared to prior exam. Mild increased vascularity. Mediastinum: Mediastinal contours appear normal. Heart size is enlarged. Bones and chest wall: No suspicious bony lesions. Overlying soft tissues appear unremarkable. IMPRESSION: Interval appearance of edema with likely bibasilar effusions. Reviewed by: Tatiana Mesa MD on 03/06/2022 12:02 PM PST Approved by: Tatiana Mesa MD on 03/06/2022 12:02 PM PST Station ID: [id number]
[2022-03-06] MEDS: HYDROcod/ACETAM 5/325 MG TABLET PO PRN (12:31)
--- NOTE | 2022-03-06 19:11 | PROVIDER PROGRESS NOTE ---
Assessment/Plan - Problem List (1) Acute renal failure with oliguria Assessment/Plan: On admission, we hoped that his creatinine was just a mild rise due to dehydration and rhabdo from laying on the floor, with admission CPK 55,000. For the past 2 days he has had minimal urine output and his creatinine has sharply increased. CT on admission confirmed that there is no hydronephrosis or obstruction. KUB l ater showed bladder was draining approp from his Tiwari. Today his leg edema is worse and he has fine crackles He is more somnolent, less talkative and having myoclonic jerks. He is uremic. No further iv fluids will be given for hydration, which was needed for the elevated CPK, because of fluid retention. Because of continuously rising creatinine, he is heading toward needing dialysis. Today I discussed what dialysis is with the patient and the daughter at bedside. She is the DPOA. She does want him to have dialysis and says she discussed it with her father earlier and he wants it. I have called facilities with higher level of care and there are no open beds, thus I have reached out to [facility] and put him in the queue so that they can help us find a place that can take him for dialysis. Follow BMP more frequently then daily. His condition is now critical. 2. Hyperkalemia Due to renal failure. Will repeat treatment with D50 and Insulin. Follw setum K more often then daily. Start Telemetry. 3. Rhabdomyolysis. He had and has generalized weakness from laying on the floor. No crush injury. He just appears to have laid on the floor for too long. His CPK was 55,000 at admission and has improved to 3700's. However, he now is in complete renal failure. Follow CK daily No further iv fluids however, since he cannot handle them. 4. Leukocytosis with SIRS criteria being positive This gentleman has a complicated case and that he already has polycythemia with a chronically elevated white cell count. So the question is if his white cell count elevated because of infection or because of demargination and dehydration. He had tachycardia, tachypnea, lactic acidosis indicating he may have possible sepsis. Or his lactic acidosis could also be coming from his metformin. And other than urine, there is no true source of infection seen in all of his imaging studies. He seems to be describing rigors and chills the last 2 nights. He has received IV fluids and empiric antibiotic therapy. His tachypnea, tachycardia have resolved. White cell count has come down but he has an elevated white cell count that is chronically elevated. Urine continued to be foul-smelling. Abdominal exam does not indicate diverticulitis or an acute abdominal process. Lung exam does not indicate pneumonia. He has a cough but it is chronic and nonproductive. Skin exam shows bruises, abrasions and superficial cuts but no abscesses or decubiti. Plan: We think an infectious source is urine so continue empiric cefepime. Considering his (+) blood cx grew staph epi, and was most likely contamination, we stopped vancomycin. Also Flagyl was stopped. Plan: Adjust antibiotics on the basis of what urine culture finds. 5. Polycythemia Has not had phlebotomy since 2020. He now has a central line in place. Hemoglobin level has dropped to 17 which is acceptable. Plan: No phlebotomy for now. 6. Type 2 diabetes mellitus, with complication of neuropathy, on long-term use of insulin, uncontrolled with hyperglycemia A1c is 7.7%. In the face of anorexia and poor appetite, we hesitated to resume his usual dosing from home. We resumed long-acting insulin with Semglee 20 units at night. Added 5 units lispro with meals. Start sliding scale insulin coverage for fingerstick glu resukts. We are holding his sulfonylurea and metformin. The latter especially in view of lactic acidosis. Plan: Adjust Semglee from 20 to 24 units Increased to a higher sliding scale Increased lispro from 5 units with meals to 8 units with meals 7. Central sleep apnea Family has brought in his CPAP. He is wearing it in his sleep. 8. Chronic indwelling Tiwari catheter Tiwari catheter was not changed out in the ED. It was changed out with nursing staff here on the floor. Difficult to get the same size he had at home. But it s been done. 9. Hx of Hypertension Blood pressure was initially normal at 121/70 when he came to the emergency room. As his stay in the emergency room progressed, he had developed a blood pressure of 163/105 4 hours later. Home medications include telmisartan, Cozaar, carvedilol, and Norvasc. He developed a cough with lisinopril so he is not on an JSOE inhibitor. His inic chart tells me that he cannot do lisinopril or an JOSE inhibitor and that is why he was changed over to an ARB. But his clinic chart does not tell me why he is on telmisartan AND Cozaar. Plan: Resume medications when blood pressure consistently elevated. 10. Elevated liver enzymes. He does not have a history of alcohol abuse. He does have rhabdo and liver enzymes can be elevated in the face of that. Denies RUQ or epigastric pain. His abd CT showed normal liver size and demonstrated no suspicious lesions, prior splenectomy. Plan: Checking acute hepatitis panel Continue to monitor LFTs 11. Chronic atrial fibrillation On admission, Coreg was on his medication list. He explained to the nurse that Coreg was stopped. Pharmacy was going to be verifying this and reconcile his medication correctly. His Allergy list states "B-blockers" Plan: Will likely stop the Coreg His Eliquis dose needed to be reduced in the face of renal failure. 12. Chronic diastolic heart failure On admission he had a very dry oral mucosa, creatinine was raised at 1.8. At admission, he appeared euvolemic to the previous Hospitalist in that there were no crackles, no JVD and was comfortable from a respiratory perspective. He has now received over 7L in iv fluids (for his Rhabdo and RIGO) Yesterday, in the face of renal failure and nearly no urine output, we stopped his IV fluids. Plan today is for transfer for hemodialysis. 13. Acute pain. He said he was feeling a lot better where his back and hips ached after lying on the floor, after admission. Today, he is not speaking. He was ordered Tylenol, Selmer, and morphine. These will be decreased, in light of his lethargy. 14. Lactic acidosis. Resolved. In this gentleman's case lactic acidosis could be coming from liver, dehydration, UTI, or simply his metformin in the face of dehydration. Plan: Continue empiric antibiotic therapy for UTI No metformin. - Current Meds Current Meds: Current Medications Generic Name Dose Route Start Last Admin Trade Name Freq PRN Reason Stop Dose Admin Hydrocodone Bitart/Acetaminophen 1 tab 03/03/22 13:46 03/06/22 12:31 Hydrocod/Acetam 5/325 Mg Tablet PO 1 tab Q4HR PRN Administration Pain 5 to 7 Apixaban 2.5 mg 03/04/22 21:00 03/06/22 10:21 Apixaban 2.5 Mg Tablet PO 2.5 mg BID CHRISTIANE Administration Cefepime HCl 2 gm/ Sodium 100 mls @ 200 mls/hr 03/05/22 21:00 03/05/22 22:03 Chloride IV Infused QPM CHRISTIANE Infusion Vancomycin HCl 1 gm/ 500 mls @ 250 mls/hr 03/06/22 10:00 03/06/22 12:26 Vancomycin HCl 500 mg/ Sodium IV Infused Chloride Q48H CHRISTIANE Infusion Insulin Glargine-yfgn 24 unit 03/04/22 21:00 03/05/22 20:53 Insulin Glargine-Yfgn 300 Unit/3 Ml Pen SUBQ 24 unit QPM CHRISTIANE Administration Insulin Human Lispro 2 - 10 unit 03/03/22 17:00 03/06/22 17:11 Insulin Lispro 300 Unit/3 Ml Pen SUBQ Not Given 0800,1200,1700,2100 [facility] Protocol Insulin Human Lispro 8 unit 03/04/22 12:00 03/06/22 17:15 Insulin Lispro 300 Unit/3 Ml Pen SUBQ Not Given TIDWM [facility] Multivitamins 1 tab 03/04/22 08:00 03/06/22 10:20 Multivitamin Tablet PO 1 tab DAILYWM [facility] Administration Nadcl-6-Aqsa Ethyl Esters 1 gm 03/03/22 21:00 03/06/22 10:21 [place]-3 Acid Ethyl Esters 1 Gm Capsule PO 1 gm BID CHRISTIANE Administration Niacin 500 Mg 1 each 03/04/22 09:00 03/06/22 10:21 Capsule.Er PO Not Given DAILY [facility] Sodium Chloride 10 ml 03/03/22 13:46 03/06/22 05:31 Sodium Chloride Flush 0.9% 10 Ml Syringe IVP 30 ml PRN PRN Administration NEEDED PER PROVIDER ORDERS Sodium Chloride 10 ml 03/03/22 17:00 03/06/22 17:15 Sodium Chloride Flush 0.9% 10 Ml Syringe IVP 10 ml 0100,0900,1700 [facility] Administration - Lab Result Fish Bone Diagrams: 03/07/22 06:10 03/07/22 06:10 - Additional Planning My Orders: My Active Orders 03/06/22 08:44 Telemetry- [RC] Q4HR 03/06/22 Lunch Carb-controlled Diet [DIET] Subjective - Subjective Patient Reports: Other (Pt does not answer, he follows with eyes. He is wearing his home CPAP mask, but not sleeping. Daughter is at bedside and answers all questions for him.) Nursing Reports: Other (Myoclonic jerks reported. Less alert.) Objective Vital Signs: Vital Signs - 24 hr 03/05/22 03/06/22 03/06/22 23:41 07:43 09:26 Temperature 36.8 C 36.3 C L 36.6 C Heart Rate [ 75 73 Brachial] Respiratory 18 20 24 Rate Blood Pressure 112/62 120/68 [Right Brachial artery] O2 Saturation 89 L 92 92 03/06/22 03/06/22 11:30 15:42 Temperature 36.8 C 36.5 C Heart Rate [ 67 104 H Brachial] Respiratory 22 21 Rate Blood Pressure 126/70 117/85 H [Right Brachial artery] O2 Saturation 92 93 Oxygen O2 Source CPAP I&O (Last 24 Hrs): Intake and Output Totals x24h 03/04/22 03/05/22 03/06/22 23:59 23:59 23:59 Intake Total 3290 3140.333 3290 Output Total 120 225 240 Balance 3170 2915.333 3050 General: Other (Somnolent, not communicative, wearing his home CPAP mask.) HEENT: Mucous membr. moist/pink Neck: Other (Unable to assess JVP due to muñoz) Neuro: Non Focal, Other (Lethargic but is awake, follows discussion by moving eyes and head, has myoclonic jerking mvms of arms. Is not answering questions.) Cardiovascular: No murmurs Respiratory: No respiratory distress, Breath sounds nml Abdomen: Soft, No tenderness Extremities: Other (2+ edema of hands, 3+ edema of legs to mid-thighs.) - Results Results: Laboratory Results WBC 19.7 x10^3/uL (4.8-10.8) H 03/06/22 05:30 RBC 4.70 10^6/uL (4.70-6.10) 03/06/22 05:30 Hgb 15.3 g/dL (14.0-18.0) 03/06/22 05:30 Hct 45.9 % (42.0-52.0) 03/06/22 05:30 MCV 97.7 fL (80.0-94.0) H 03/06/22 05:30 MCH 32.6 pg (27.0-31.0) H 03/06/22 05:30 MCHC 33.3 g/dL (32.0-36.0) 03/06/22 05:30 RDW 14.9 % (12.0-15.0) 03/06/22 05:30 Plt Count 151 10^3/uL (130-450) 03/06/22 05:30 MPV 12.5 fL (7.4-11.4) H 03/06/22 05:30 Neut # (Auto) 15.8 10^3/uL (1.5-6.6) H 03/06/22 05:30 Lymph # (Auto) 1.9 10^3/uL (1.5-3.5) 03/06/22 05:30 Scurry # (Auto) 1.7 10^3/uL (0.0-1.0) H 03/06/22 05:30 Eos # (Auto) 0.0 10^3/uL (0.0-0.7) 03/06/22 05:30 Baso # (Auto) 0.1 10^3/uL (0.0-0.1) 03/06/22 05:30 Absolute Nucleated RBC 0.03 x10^3/uL 03/06/22 05:30 Total Counted 100 03/05/22 05:35 Band Neuts % (Manual) 2 % (0-10) 03/05/22 05:35 Abnorm Lymph % (Manual) 0 % 03/05/22 05:35 Nucleated RBC % 0.2 /100WBC 03/06/22 05:30 Neutrophils # (Manual) 14.2 10^3/uL (1.5-6.6) H 03/05/22 05:35 Lymphocytes # (Manual) 2.3 10^3/uL (1.5-3.5) 03/05/22 05:35 Monocytes # (Manual) 2.5 10^3/uL (0.0-1.0) H 03/05/22 05:35 Eosinophils # (Manual) 0.4 10^3/uL (0-0.7) 03/05/22 05:35 Basophils # (Manual) 0.0 10^3/uL (0-0.1) 03/05/22 05:35 Differential Comment MANUAL DIFFERENTIAL 03/05/22 05:35 Manual Slide Review Indicated 03/03/22 10:40 WBC Morphology (NORMAL) 03/03/22 10:40 Platelet Estimate NORMAL (130-450,000) (NORMAL) 03/05/22 05:35 Platelet Morphology NORMAL APPEARANCE (NORMAL) 03/03/22 10:40 RBC Morph Micro Appear NORMAL APPEARANCE (NORMAL) 03/05/22 05:35 Sodium 134 mmol/L (135-145) L 03/06/22 05:30 Potassium 6.4 mmol/L (3.5-5.0) H* 03/06/22 12:20 Chloride 105 mmol/L (101-111) 03/06/22 05:30 Carbon Dioxide 16 mmol/L (21-32) L 03/06/22 05:30 Anion Gap 13.0 (6-13) 03/06/22 05:30 BUN 98 mg/dL (6-20) H* 03/06/22 05:30 Creatinine 7.0 mg/dL (0.6-1.2) H* 03/06/22 05:30 Estimated GFR (MDRD) 8 (>89) L 03/06/22 05:30 Glucose 116 mg/dL (70-100) H 03/06/22 05:30 Estimat Average Glucose 174 mg/dL (70-100) H 03/04/22 05:43 Hemoglobin A1c % 7.7 % (4.27-6.07) H 03/04/22 05:43 Lactic Acid 1.9 mmol/L (0.5-2.2) 03/05/22 02:25 Calcium 7.2 mg/dL (8.5-10.3) L 03/06/22 05:30 Total Bilirubin 0.9 mg/dL (0.2-1.0) 03/06/22 05:30 AST 333 IU/L (10-42) H 03/06/22 05:30 ALT 228 IU/L (10-60) H 03/06/22 05:30 Alkaline Phosphatase 81 IU/L (42-121) 03/06/22 05:30 Total Creatine Kinase 3973 IU/L (22-269) H* 03/06/22 05:30 Total Protein 5.7 g/dL (6.7-8.2) L 03/06/22 05:30 Albumin 2.1 g/dL (3.2-5.5) L 03/06/22 05:30 Globulin 3.6 g/dL (2.1-4.2) 03/06/22 05:30 Albumin/Globulin Ratio 0.6 (1.0-2.2) L 03/06/22 05:30 Urine Color BROWN 03/03/22 14:40 Urine Clarity CLOUDY (CLEAR) 03/03/22 14:40 Urine pH 6.5 PH (5.0-7.5) 03/03/22 14:40 Ur Specific [place] 1.020 (1.002-1.030) 03/03/22 14:40 Urine Protein >=300 mg/dL (NEGATIVE) H 03/03/22 14:40 Urine Glucose (UA) 100 mg/dL (NEGATIVE) H 03/03/22 14:40 Urine Ketones TRACE mg/dL (NEGATIVE) 03/03/22 14:40 Urine Occult Blood LARGE (NEGATIVE) H 03/03/22 14:40 Urine Nitrite POSITIVE (NEGATIVE) H 03/03/22 14:40 Urine Bilirubin NEGATIVE (NEGATIVE) 03/03/22 14:40 Urine Urobilinogen 1 (NORMAL) E.U./dL (NORMAL) 03/03/22 14:40 Ur Leukocyte Esterase TRACE (NEGATIVE) H 03/03/22 14:40 Urine RBC TNTC /HPF (0-5) H 03/03/22 14:40 Urine WBC >25 /HPF (0-3) H 03/03/22 14:40 Ur Squamous Epith Cells FEW Squamous (<= Few) 03/03/22 14:40 Amorphous Sediment Moderate /LPF 03/03/22 14:40 Urine Bacteria Moderate /HPF (None Seen) H 03/03/22 14:40 Ur Microscopic Review INDICATED 03/03/22 14:40 Urine Culture Comments INDICATED 03/03/22 14:40 Nasal Adenovirus (PCR) NOT DETECTED 03/03/22 14:43 Nasal B. parapertussis DNA (PCR) NOT DETECTED 03/03/22 14:43 Nasal Coronavir 229E PCR NOT DETECTED 03/03/22 14:43 Nasal Coronavir HKU1 PCR NOT DETECTED 03/03/22 14:43 Nasal Coronavir NL63 PCR NOT DETECTED 03/03/22 14:43 Nasal Coronavir OC43 PCR NOT DETECTED 03/03/22 14:43 Nasal Enterovir/Rhinovir PCR NOT DETECTED 03/03/22 14:43 Nasal Influenza B PCR NOT DETECTED 03/03/22 14:43 Nasal Influenza A PCR NOT DETECTED 03/03/22 14:43 Nasal Parainfluen 1 PCR NOT DETECTED 03/03/22 14:43 Nasal Parainfluen 2 PCR NOT DETECTED 03/03/22 14:43 Nasal Parainfluen 3 PCR NOT DETECTED 03/03/22 14:43 Nasal Parainfluen 4 PCR NOT DETECTED 03/03/22 14:43 Nasal RSV (PCR) NOT DETECTED 03/03/22 14:43 Nasal B.pertussis DNA PCR NOT DETECTED 03/03/22 14:43 Nasal C.pneumoniae (PCR) NOT DETECTED 03/03/22 14:43 Jono Human Metapneumo PCR NOT DETECTED 03/03/22 14:43 Nasal M.pneumoniae (PCR) NOT DETECTED 03/03/22 14:43 Nasal SARS-CoV-2 (PCR) NOT DETECTED 03/03/22 14:43 Last Dose Date 03/05/22 03/05/22 16:50 Last Dose Time 1300 03/05/22 16:50 Random Vancomycin 18.0 ug/mL 03/05/22 16:50 Urine Opiates Screen NEGATIVE (NEGATIVE) 03/03/22 14:40 Ur Oxycodone Screen POSITIVE (NEGATIVE) H 03/03/22 14:40 Urine Methadone Screen NEGATIVE (NEGATIVE) 03/03/22 14:40 Ur Propoxyphene Screen NEGATIVE (NEGATIVE) 03/03/22 14:40 Ur Barbiturates Screen NEGATIVE (NEGATIVE) 03/03/22 14:40 Ur Tricyclics Screen NEGATIVE (NEGATIVE) 03/03/22 14:40 Ur Phencyclidine Scrn NEGATIVE (NEGATIVE) 03/03/22 14:40 Ur Amphetamine Screen NEGATIVE (NEGATIVE) 03/03/22 14:40 U Methamphetamines Scrn NEGATIVE (NEGATIVE) 03/03/22 14:40 U Benzodiazepines Scrn NEGATIVE (NEGATIVE) 03/03/22 14:40 Urine Cocaine Screen NEGATIVE (NEGATIVE) 03/03/22 14:40 U Cannabinoids Screen NEGATIVE (NEGATIVE) 03/03/22 14:40
[2022-03-06] MEDS: CEFEPIME 2 GM in SODIUM CHLORIDE 0.9% MINIBAG 100 ML IV SCH (21:34)
[2022-03-06] MEDS: INSULIN GLARGINE-YFGN 300 UNIT/3 ML PEN SUBQ SCH (21:40)
[2022-03-07] MEDS: SODIUM CHLORIDE FLUSH 0.9% 10 ML SYRINGE IVP SCH ×2 (06:09→11:40)
[2022-03-07 06:27] LABS: BASOPHILS # (AUTO) 0.1 10^3/uL (0.0-0.1); BASOPHILS % (AUTO) 0.4 %; EOSINOPHILS # (AUTO) 0.1 10^3/uL (0.0-0.7); EOSINOPHILS % (AUTO) 0.4 %; HCT - HEMATOCRIT 45.6 % (42.0-52.0); HGB - HEMOGLOBIN 15.2 g/dL (14.0-18.0); LYMPHOCYTES # (AUTO) 3.1 10^3/uL (1.5-3.5); LYMPHOCYTES % (AUTO) 16.5 %; MEAN CORPUSCULAR HEMOGLOBIN 32.8 pg (27.0-31.0); MEAN CORPUSCULAR HGB CONC 33.3 g/dL (32.0-36.0); MEAN CORPUSCULAR VOLUME 98.5 fL (80.0-94.0); MEAN PLATELET VOLUME 12.2 fL (7.4-11.4); MONOCYTES # (AUTO) 1.9 10^3/uL (0.0-1.0); MONOCYTES % (AUTO) 10.3 %; NEUTROPHILS # (AUTO) 13.2 10^3/uL (1.5-6.6); NEUTROPHILS % (AUTO) 70.7 %; NRBC ABSOLUTE COUNT (AUTO) 0.02 x10^3/uL; NUCLEATED RED BLOOD CELLS AUTO 0.1 /100WBC; PLT - PLATELET COUNT 181 10^3/uL (130-450); RED BLOOD COUNT 4.63 10^6/uL (4.70-6.10); RED CELL DISTRIBUTION WIDTH 14.9 % (12.0-15.0); WHITE BLOOD COUNT 18.7 x10^3/uL (4.8-10.8)
[2022-03-07 07:12] LABS: ALBUMIN 2.2 g/dL (3.2-5.5); ALBUMIN/GLOBULIN RATIO 0.6 (1.0-2.2); CALCIUM 7.2 mg/dL (8.5-10.3); TOTAL PROTEIN 5.8 g/dL (6.7-8.2)
[2022-03-07 07:18] LABS: CREATININE 8.7 mg/dL (0.6-1.2); POTASSIUM 7.2 mmol/L (3.5-5.0)
[2022-03-07] MEDS: INSULIN LISPRO 300 UNIT/3 ML PEN SUBQ SCH ×3 (08:22→12:48)
[2022-03-07] MEDS: NIACIN 500 MG PO SCH (08:23)
[2022-03-07] MEDS: MULTIVITAMIN TABLET PO SCH (10:30)
[2022-03-07] MEDS: APIXABAN 2.5 MG TABLET PO SCH (10:30)
[2022-03-07] MEDS: OMEGA-3 ACID ETHYL ESTERS 1 GM CAPSULE PO SCH (10:30)
[2022-03-07] MEDS ORDERED: MORPHINE 2 MG/ML CARPUJECT IVP PRN (10:39)
[2022-03-07] MEDS ORDERED: INSULIN REGULAR HUMAN 300 UNIT/3 ML VIAL IVP ONE (10:43)
[2022-03-07] MEDS ORDERED: DEXTROSE 50% ABBOJECT 25 GM/50 ML SYRINGE IVP ONE (10:44)
[2022-03-07] MEDS ORDERED: CALCIUM GLUC 1,000MG/50ML-NACL 1,000 MG/50 ML BAG IV ONE ×2 (10:47→11:30)
[2022-03-07] MEDS ORDERED: MEROPENEM 1 GM in SODIUM CHLORIDE 0.9% MINIBAG 100 ML IV SCH (11:00)
[2022-03-07] MEDS ORDERED: LINEZOLID 600 MG/300 ML 600 MG/300 ML BAG IV SCH (11:00)
[2022-03-07] MEDS ORDERED: DEXTROSE 10% 250 ML IV ONE (12:00)
[2022-03-07] MEDS ORDERED: INSULIN REGULAR HUMAN 100 UNIT in SODIUM CHLORIDE 0.9% 100ML 99 ML IV ONE (15:13)
[2022-03-07] MEDS ORDERED: DEXTROSE 5% 1,000 ML IV SCH (16:00)
--- NOTE | 2022-03-07 16:45 | DISCHARGE SUMMARY ---
Discharge Summary Admit Date: 03/03/22 Discharge Date: 03/07/22 Discharging Provider: Dr Agnes Valdez Primary Care Provider: Dr Ganga Aguilar Condition at Discharge: Serious Discharge Disposition: 02 Transfer Acute Care Hosp Discharge Facility Name: [facility] History of Present Illness: He lives alone, and accidentally rolled out of bed last night around 10:00 at night. He is a vague historian. He was unable to get off the floor and laid on the ground for most of the night. He denies blows to the head. However, his nose has an abrasion on it. His back hurts, right leg hurts from laying on the ground. He was found and EMS was called. Prior to this, he has had a couple of bad nights. He describes being very chilled, and shaking quite a bit because he was so cold. He was piling blankets on the bed to keep himself warm. During the day he seemed to recover but at night it was bad. The night he fell he had piled on a lot of blankets in his he was struggling to get out of bed to go to the bathroom, he thinks he just got caught up in the blankets and fell down. And then he could not get to the side of the bed and had the phone and lay on the floor with blankets on top of them. He denies fever, chills. He denies cough, congestion. No belly pain. No diarrhea. No headaches, no sore throat, no ear pain.He is a chronic indwelling Tiwari catheter. In the emergency room,Temperature was 35.7. Blood pressure 121/70. Respiratory rate was 33, and he was 98% on room air. He is 117 kg and is 5 foot 11 inches tall. The emergency room provider found him to be alert and oriented, no distress. Regular rate and rhythm. No pulmonary problems and normal lung exam. Benign abdominal exam except for bruising of his right lower quadrant. The Tiwari is draining foul-smelling urine. No spinal tenderness. He had difficulty moving his right hip and he had a laceration inferior to the right patella that looks older than the 12 hours he stated he was on the floor. He is obeying commands. His sodium was 136. Potassium 6.4. Anion gap 15. BUN 42, creatinine 1.8. Glucose 335. Total bili is 1.2. Lactic acid is 5.0. AST is 756, ALT 257 and alk phos 140. Previous liver enzymes July 04, 2021 were completely normal. They were also normal in April 2021. His chronic polycythemia usually has him with an elevated white cell count at 12-15,000. Today it is 28.9. Hemoglobin is usually 18-19 and today it is 20.2. Platelets are 195. The ER provider did put in a central line Imaging includes hip and pelvis x-ray, lower extremity x-rays, femur x-ray, knee x-ray, head CT, cervical spine CT, chest CT, abdomen pelvis CT and chest x-ray. All of these films showed: + A Tiwari catheter with a decompressed bladder, bilateral fat-containing inguinal hernias left greater than right + Mildly enlarged heart, no pericardial effusion, coronary artery calcification, no PE, fractures involving the left posterior ninth, 10th, and 11th ribs but there is a periosteal reaction already seen. No acute fractures + Layering gallstones with simple renal cysts. A splenectomy. + Negative for acute fractures of the C-spine, knee, femur + No acute intracranial hemorrhage Past medical history: 1. Polycythemia with hemoglobin at 18 at diagnosis 2012. Negative JAK2, JAMMIE R, MPL mutations. Erythropoietin level elevated. Unable to do phlebotomy since May 2020 due to poor venous access. 2. Central sleep apnea/ hyponea dx 2014. on BiPAP machine. Patient is compliant but secondary polycythemia is most likely present due to central apnea 3. Chronic leukocytosis since 2012, secondary to splenectomy done for rupture 1993. Presented March 2010 for lymphadenopathy and elevated white cell coun t. Initially thought to have lymphoma but Negative flow cytometry. Negative PET scan. 4. Urinary retention due to Multiple diagnoses in chart. BPH with retention/Turp 2014, neurogenic bladder, bladder muscle dysfunction all quoted in the chart. Chronic long-term indwelling Tiwari catheter. Had neurostimulator of the bladder put in by Dr. Mary 2014. 5. CAD/idiopathic cardiomyopathy/chronic atrial fibrillation on Eliquis. Has had 2 cardioversions that were unsuccessful with [facility]. He was found to have A. fib incidentally as part of a preop evaluation for prostate surgery. He had no symptoms. Echocardiogram 2014 with LVEF 50% to 55%. Marked enlargement of both left and right atria. No significant valvular heart disease. Cardioverted 12/2014 and again early July 2015. Then late July 2015 presented to ER with acute on chronic combined systolic/diastolic heart failure. Sinus bradycardia with that eval. Recurrence of afib by 11/2018 and no strategy for any further rhythm control. to stay on eliquis. [place] to have chronic diastolic heart failure and EF ok. 6. Type 2 diabetes mellitus, with complications of CKD and neuropathy, on long- term use of insulin 7. Hypertension 8. Osteoarthritis with Right knee medial meniscectomy and medial femoral chondroplasty 2006. Followed by medial compartment arthroplasty 2007.Followed by total compartment arthroplasty 2016. Left knee arthroplasty 2017 as well. 9. Abdominal ventral hernia 10. obesity 11. onychomycosis 12. Diverticulitis 05/2020 13. Lumbar spinal stenosis, Status post L5-S1 laminectomy and foraminotomy, status post right L5/S1 LC 14. Squamous cell carcinoma of left ear 15. Mild cognitive impairment 16. Hypertriglyceridemia 17. Early open angle glaucoma, macular drusen, mild nonprolif retinopthy without macular edema, posterior vitreous detachment, RUL cyst, pseuophakia. Cataracts removed 2017 and Yag capsulotomy done 2019. 18. Hernia repair 19. Colonoscopy 20. L hydrocele 21. 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 Reconstruction October 2006. 22. Left thumb partial amputation 23. vasectomy 24. Pneumonia in the past resulting in a diagnosis of reactive airways disease - HOSPITAL COURSE Hospital Course: 1. Acute renal failure with oliguria On admission, we hoped that his creatinine was just a temporary increase due to dehydration plus rhabdo from laying on the floor (admission CPK 55,000). He was started on iv fluids. His creat continued to rise daily however, then he became oliguric and uremic. CT on admission confirmed that there was no hydronephrosis or obstruction. KUB repeated later and showed bladder was draining appropriately from his Tiwari. He developed edema, iv fluids were stopped and we worked to transfer him for hemodialysis, but there were no open beds until 03/07. 2. Uremia As his creat liz daily, he became lethargic, non-communicative and then had worsening myoclonic jerks. At discharge his BUN/creat were 127/9.7. 3. Hyperkalemia This developed due to renal failure and was severe. He got D50 and Insulin repeatedly, Ca-gluconate, then needed iv D5 and Insulin drip in the ICU. His QRS did widen, but no arrhythmias were seen. He was transferred by air ambulance. K was 7.1 at discharge. 4. Rhabdomyolysis. He had generalized weakness from laying on the floor. His CPK was 55,000 at admission and has improved to 3700's, then started to climb to 9393 at time of transfer. 5. Leukocytosis with SIRS criteria being positive This gentleman has polycythemia with a chronically elevated white cell count. He seemed to be describing rigors and chills the last 2 nights. He received IV fluids and empiric antibiotic therapy. His tachypnea and tachycardia resolved. White cell count came down somewhat. Urine continued to be foul-smelling. Abdominal exam did not indicate an acute abdominal process. Lung exam does not indicate pneumonia. He had a cough that was chronic and nonproductive. Skin exam showed bruises, abrasions and superficial cuts but no abscesses or decubiti. 6. Polycythemia He has not had phlebotomy since 2020. Hemoglobin level dropped to 17 7. Type 2 diabetes mellitus, with complication of neuropathy, on long-term use of insulin, uncontrolled with hyperglycemia A1c was 7.7%. In the face of anorexia and poor appetite, we hesitated to resume his usual Insulin dosing from home. He got Glargine and ss Insulin coverage. 8. Central sleep apnea Family brought in his CPAP which was on him continuously since he was lethargic. 9. Chronic indwelling Tiwari catheter Tiwari catheter was changed out by nursing staff here on the floor 10. Hx of Hypertension Blood pressure was initially normal then progressively worsened with his uemia. Home oral medications included Telmisartan, Cozaar, Carvedilol, and Norvasc. He has a Hx of a cough with lisinopril. We could not discern why he was on Telmisartan AND Cozaar. As he became obtunded, meds were iv forms. 11. Elevated liver enzymes. He does not have a history of alcohol abuse. He did have rhabdo and liver enzymes can be elevated in the face of that. He denied RUQ or epigastric pain. His abd CT showed normal liver size and demonstrated no suspicious lesions, prior splenectomy. 12. Chronic atrial fibrillation On admission, Coreg was on his medication list. He explained to the nurse that Coreg was stopped. His Allergy list states "B-blockers". His Eliquis dose needed to be reduced in the face of renal failure. 13. Chronic diastolic heart failure On admission, he had a very dry oral mucosa, creatinine was 1.8. At admission, he appeared euvolemic. He needed iv fluids, received over 7L in iv fluids (for his Rhabdo and RIGO). He developed oliguria, marked edema, and iv fluids were stopped. He required transfer for hemodialysis. 14. Acute pain He described back and hip pain after lying on the floor. 15. Lactic acidosis. Could have been coming from liver, dehydration, UTI, or simply his metformin in the face of dehydration. It resolved. - ALLERGIES Allergies/Adverse Reactions: Allergies Allergy/AdvReac Type Severity Reaction Status Date / Time Beta-Blockers Allergy Unknown Verified 03/03/22 09:50 (Beta-Adrenergic Bloc pioglitazone [From Actos] Allergy Unknown Verified 03/03/22 09:50 Vrruwrw-POF-MxP Reductase AdvReac Unknown Verified 03/03/22 09:50 Inhibitor [Wzhebon-Cio-Nda Reductase Inhibitor] - MEDICATIONS Home Medications: Ambulatory Orders Medication Instructions Recorded Confirmed Apixaban [Eliquis] 5 mg PO BID 06/24/19 03/03/22 Cholecalciferol (Vitamin D3) 200 unit PO DAILY 06/24/19 03/03/22 [Vitamin D3] Furosemide [Lasix] 80 mg PO DAILY 06/24/19 03/03/22 Insulin Glargine,Hum.rec.anlog 30 unit SQ BID 06/24/19 03/03/22 [Basaglar Quanikpen U-100] Multivitamin [Multiple Vitamins] 1 tab PO DAILY 06/24/19 03/03/22 Niacin 500 mg PO DAILY 06/24/19 03/03/22 [place]-3/Dha/Epa/Fish Oil [Fish Oil 1,000 mg PO BID 06/24/19 03/03/22 1,000 mg Softgel] Potassium Chloride 20 meq PO DAILY 06/24/19 03/03/22 amLODIPine [Norvasc] 10 mg PO DAILY 06/24/19 03/03/22 glipiZIDE [Glipizide] 15 mg PO BID 06/24/19 03/03/22 metFORMIN [Glucophage] 1,000 mg PO QPM 06/24/19 03/03/22 metFORMIN [Glucophage] 1,500 mg PO DAILY 06/24/19 03/03/22 Carvedilol [Coreg] 6.25 mg PO DAILY 03/03/22 03/03/22 Insulin Aspart [NovoLOG] 5 unit SQ TID 03/03/22 03/03/22 Losartan [Cozaar] 25 mg PO DAILY 03/03/22 03/03/22 Magnesium Oxide [Magnesium] 200 mg PO DAILY 03/03/22 03/03/22 Telmisartan 80 mg PO DAILY 03/03/22 03/03/22 predniSONE [Deltasone] 10 mg PO MOWEFR 03/03/22 03/03/22 - PHYSICAL EXAM AT DISCHARGE General Appearance: positive: Mild distress, Lethargic Eyes Bilateral: positive: Normal inspection, EOMI ENT: positive: ENT inspection nml, No signs of dehydration Neck: positive: Nml inspection, Other (Cannot eval JVP due to large muñoz and is wearing a CPAP machine) Respiratory: positive: No respiratory distress, Breath sounds nml Cardiovascular: positive: No murmur Abdomen: positive: Non-tender, No distention Skin: positive: Warm, Dry Extremities: positive: Non-tender, Other (2+ edema hands and lower arms, 3+ edema of legs up to to thighs) Neurologic/Psychiatric: positive: Other (Freq myoclonic jerks of arms. Lethargic, opens eye and follows with eys to voice, does not follow commands.) - LABS Result Diagrams: 03/07/22 06:10 03/07/22 16:56 - DIAGNOSTIC IMAGING Diagnostic Imaging Results: Final report reviewed - FOLLOW UP Follow Up: This will be determined after [facility] from [facility]. - TIME SPENT Time Spent in Discharge (Minutes): 60
--- NOTE | 2022-03-07 16:45 | Discharge Plan ---
Discharge Plan Problem Reviewed?: Yes Disposition: 02 Transfer Acute Care Hosp Condition: Serious No Smoking: If you smoke, Please STOP! Call for help.
[2022-03-07 17:13] VITALS: BP 122/64
[2022-03-07 17:35] LABS: CALCIUM 7.3 mg/dL (8.5-10.3)
[2022-03-07 17:37] LABS: POTASSIUM 7.1 mmol/L (3.5-5.0)
[2022-03-07 17:38] LABS: CREATININE 9.7 mg/dL (0.6-1.2)
[2022-03-07] MEDS ORDERED: INSULIN GLARGINE-YFGN 300 UNIT/3 ML PEN SUBQ SCH (21:00)
[2022-03-07] MEDS ORDERED: FAMOTIDINE 20 MG/2 ML VIAL IVP SCH (21:00)
--- NOTE | 2022-03-29 18:29 | PROVIDER PROGRESS NOTE ---
Progress Note March 05, 2022 4 PM This is a late entry note. Patient continues to be with poor urine output. Creatinine is rising. I did talk to the patient and ask if he had ever thought about dialysis. He said he did not know about whether he wanted that or not. He denies nausea, confusions, hallucinations. Temperature is 36.5. Heart rate 60. Blood pressure 129/71. Respirations 24. 93% on room air. Because he feels better, he keeps on saying he cannot believe what I am telling him about his renal failure. He is alert, oriented. Continues to be quite a vivacious speaker. Lungs are clear without crackles. Irregular rate and rhythm with a systolic murmur. His rate is controlled. Abdomen is soft, acutely obese, hypoactive bowel sounds, nontender. Still eating 100% of his food. Tiwari is draining orange-brown urine. Continues to be quite foul-smelling. Extremities are developing worsening edema. He is alert, oriented, slightly deaf. Having trouble following the severity of his illness and my explaining that he may need dialysis and does he want it. Sodium is 135. Potassium 5.8. BUN 84, creatinine 5.7. Total bili 1.1. AST 443. ALT 268. White cell count 19.5. Hemoglobin 16.9. Hematocrit 49.6. Platelets 148. Assessment/plan: 1. Acute oliguric renal failure On admission I thought that his bump in his creatinine was just a mild rise due to dehydration and laying on the floor. His CPK was 55,000. Since that first lab check, he has had minimal urine output, to no urine output and his creatinine continues to rise. He is not in congestive heart failure, but does have hyperkalemia.On KUB he has a nonobstructive bowel gas pattern, Tiwari catheter is in place.CT on admission confirmed there is no hydronephrosis or obstruction. Plan: He is not sure if he wants dialysis. As such I am not sure if I need to move forward with calling transfer center. He said that his daughter may help him decide and he will call and discussed with her. At this time he is not in congestive heart failure, and hyperkalemia is being managed with insulin and D50 2. Rhabdomyolysis. Nontraumatic. Now with generalized weakness from laying on the floor. No crush injury. He just appears to have laid on the floor for too long last night. mild acute kidney injury with this. Baseline creatinine is 1 and is 1.8 on admission. His CPK was 55,000 yesterday. He now appears to be in complete renal failure. His rhabdomyolysis may be more detrimental than I thought. Plan: But we have to be careful in the face of renal failure since we may put him into congestive heart failure. Continue to monitor BMP, fluid balances 3. Leukocytosis With SIRS criteria being positive This gentleman has a complicated case and that he already has polycythemia with a chronically elevated white cell count. So the question is if his white cell count elevated because of infection or because of demargination and dehydration. He had tachycardia, tachypnea, lactic acidosis indicating he may have possible sepsis. Or his lactic acidosis could also be coming from his metformin. And other than urine, there is no true source of infection seen in all of his imaging studies. He seems to be describing rigors and chills the last 2 nights. He has received IV fluids and empiric antibiotic therapy. His tachypnea, tachycardia have resolved. White cell count has come down but he has an elevated white cell count that is chronically elevated. Urine continues to be foul-smelling. Abdominal exam does not indicate diverticulitis or an acute abdominal process. Lung exam does not indicate pneumonia. He has a cough but it is chronic and nonproductive. Skin exam shows abrasions and superficial cuts but no abscesses or decubiti. I have deescalated antibiotics. Flagyl was discontinued 2 days ago. I think the source of his infection is urine due to it's smell but Urine culture shows polymicrobial growth. So urine is not helpful at this time. Because he has gram-positive cocci in his blood he is on vancomycin. I have discussed this with pharmacy. He may not be able to get another dose for a while. Linezolid may be a better choice for him if I am worried about MRSA. Cefepime will be discontinued. 4. Lactic acidosis. In this gentleman's case lactic acidosis could be coming from liver, dehydration, UTI, or simply his metformin in the face of dehydration. The level is not going down to normal. I am cautiously optimistic that infection is adequately being treated. His level may not be resolving because he is in renal failure. Plan: No metformin 5. Polycythemia Has not had phlebotomy since 2020. He now has a central line in place. Hemoglobin level has dropped to 17. Acceptable. I do not think I will order phlebotomy for right now. 6. Type 2 diabetes mellitus, with complication of neuropathy, on long-term use of insulin, uncontrolled with hyperglycemia In the face of anorexia and poor appetite, I hesitate to resume his usual dosing from home. I resumed long-acting insulin with Semglee 20 units at night. Added 5 units lispro with meals. And I will do sliding scale insulin. I am holding off on his sulfonylurea and metformin. The latter especially in view of lactic acidosis. A1c is 7.7%. Semglee was increased to 24 units for high glucose yesterday. Today's glucose is 136, 145, so he appears at goal. But in view of his renal failure will need to watch carefully. Plan: No change for now. 7. Central sleep apnea Family has brought in his CPAP. He is wearing it in his sleep. 8. Chronic indwelling Tiwari catheter Tiwari catheter was not changed out in the ED. It was changed out with nursing staff here on the floor. Difficult to get the same size he had at home. But its been done. 9. Hypertension Blood pressure was initially normal at 121/70 when he came to the emergency room. As his stay in the emergency room progressed, he had developed a blood pressure of 163/105 4 hours later. Home medications include telmisartan, Cozaar, carvedilol, and Norvasc. He developed a cough with lisinopril so he is not on an JOSE inhibitor. His clinic chart tells me that he cannot do lisinopril or an JOSE inhibitor and that is why he was changed over to an ARB. But his clinic chart does not tell me why he is on telmisartan and Cozaar. Blood pressure today has been controlled. His systolic is 129, 132. Plan: Blood pressure is occasionally high. Resume medications when blood pressure consistently elevated. 10. Elevated liver enzymes. He does not have a history of alcohol abuse. He does have rhabdo and liver enzymes can be elevated in the face of that. Denies RUQ or epigastric pain. Continue to monitor (his liver CT shows normal size and demonstrated no suspicious lesions, prior splenectomy. No hydronephrosis. 11. Chronic atrial fibrillation On admission, Jamal was on his medication list. He explained to the nurse that that was stopped. Pharmacy was going to be verifying this and reconcile his medication correctly. , Jamal is still on his medication list and it has been verified by pharmacy. I will need to investigate this. The patient does not like the idea of being on Coreg. His Eliquis dose needs to be reduced in the face of renal failure. 12. Chronic diastolic heart failure On admission he had a very dry oral mucosa, creatinine was slightly raised at 1.8, but he appeared euvolemic and that there were no crackles, no JVD and was comfortable from a respiratory perspective. in the face of complete renal failure and no urine output, I stopped his IVF . He is drinking plenty of fluids. For me, he actually asked for another 500 cc of ice water and I brought it for him. 13. Acute pain. He says he is feeling a lot better and the most uncomfortable thing about all this is just laying on the floor and how much is back and hips aches. He is wanting reassurance that I have ordered pain medicine for him. I have ordered Tylenol, [place], and morphine.
== END 2022-03-07 16:45 | disposition short-term general hospital (02) | DRG 872 ==
LOC: EDUNIT# → ED 09:32 → MS2 13:46 → ICU 03-07 11:37
PROVIDERS: ADMIT Specialist; ATTEND Internal Medicine
DX: A41.9 Sepsis, unspecified organism (principal); N17.9 Acute kidney failure, unspecified; M62.82 Rhabdomyolysis; E87.20 Acidosis, unspecified; I13.0 Hypertensive heart and chronic kidney disease with heart failure and stage 1 through stage 4 chronic kidney disease, or unspecified chronic kidney disease; I50.32 Chronic diastolic (congestive) heart failure; I48.20 Chronic atrial fibrillation, unspecified; N18.9 Chronic kidney disease, unspecified; E11.22 Type 2 diabetes mellitus with diabetic chronic kidney disease; R34 Anuria and oliguria; E87.5 Hyperkalemia; I10 Essential (primary) hypertension; E78.00 Pure hypercholesterolemia, unspecified; S81.811A Laceration without foreign body, right lower leg, initial encounter; D75.1 Secondary polycythemia; E11.40 Type 2 diabetes mellitus with diabetic neuropathy, unspecified; E11.65 Type 2 diabetes mellitus with hyperglycemia; G47.31 Primary central sleep apnea; R68.83 Chills (without fever); R74.8 Abnormal levels of other serum enzymes; S00.31XA Abrasion of nose, initial encounter; W06.XXXA Fall from bed, initial encounter; M54.9 Dorsalgia, unspecified; M79.604 Pain in right leg; R53.1 Weakness; I25.10 Atherosclerotic heart disease of native coronary artery without angina pectoris; N40.1 Benign prostatic hyperplasia with lower urinary tract symptoms; R33.8 Other retention of urine; R35.0 Frequency of micturition; Z96.0 Presence of urogenital implants; E66.9 Obesity, unspecified; S30.1XXA Contusion of abdominal wall, initial encounter; E86.0 Dehydration; G25.3 Myoclonus; Z20.822 Contact with and (suspected) exposure to COVID-19; Z79.4 Long term (current) use of insulin; Z79.84 Long term (current) use of oral hypoglycemic drugs; Z68.36 Body mass index [BMI] 36.0-36.9, adult; Z79.01 Long term (current) use of anticoagulants
CPT/HCPCS: 36415; 36556; 70450; 71045; 71260; 72125; 73502; 73552; 73564; 73590; 74018; 74177; 80048; 80053; 80202; 80306; 81001; 82550; 83036; 83605; 84132; 85025; 87040; 87077; 87086; 87150; 87633; 87635; 93005; 96361; 96365; 96368; 97163; 97165; 99285; 99291; A9270; J1815; J2185; J3370; J3490; J7120; Q9967; 81003

== ENCOUNTER 2022-04-09 15:24 | Outpatient (CLI) | payer MEDICARE, OTHER ==
[2022-04-09 17:22] LABS: B. PARAPERTUSSIS- RESP PCR PAN NOT DETECTED; B. PERTUSSIS- RESP PCR PANEL NOT DETECTED; C. PNEUMONIAE- RESP PCR PANEL NOT DETECTED; CORONAVIRUS 229E-RESP PCR NOT DETECTED; CORONAVIRUS HKU1-RESP PCR NOT DETECTED; CORONAVIRUS NL63-RESP PCR NOT DETECTED; CORONAVIRUS OC43-RESP PCR NOT DETECTED; HUMAN METAPNEUMOVIRUS NOT DETECTED; INFLUENZA A- RESP PCR PANEL NOT DETECTED; INFLUENZA B - RESP PCR PANEL NOT DETECTED; M. PNEUMONIAE- RESP PCR PANEL NOT DETECTED; PARAINFLUENZA VIRUS 1 NOT DETECTED; PARAINFLUENZA VIRUS 2 NOT DETECTED; PARAINFLUENZA VIRUS 3 NOT DETECTED; PARAINFLUENZA VIRUS 4 NOT DETECTED; RHINOVIRUS/ENTEROVIRUS NOT DETECTED; RSV- RESP PCR PANEL NOT DETECTED; SARS-CoV-2 -RESP PCR PANEL NOT DETECTED
== END 2022-04-09 15:25 | disposition home or self-care (01) ==
LOC: LAB.R 15:24
PROVIDERS: ATTEND Internal Medicine
DX: Z13.83 Encounter for screening for respiratory disorder NEC (principal); Z20.822 Contact with and (suspected) exposure to COVID-19
CPT/HCPCS: 87633

== ENCOUNTER 2022-04-13 08:00 | Outpatient (CLI) | payer MEDICARE, OTHER ==
[2022-04-14 03:15] LABS: B. PARAPERTUSSIS- RESP PCR PAN NOT DETECTED; B. PERTUSSIS- RESP PCR PANEL NOT DETECTED; C. PNEUMONIAE- RESP PCR PANEL NOT DETECTED; CORONAVIRUS 229E-RESP PCR NOT DETECTED; CORONAVIRUS HKU1-RESP PCR NOT DETECTED; CORONAVIRUS NL63-RESP PCR NOT DETECTED; CORONAVIRUS OC43-RESP PCR NOT DETECTED; HUMAN METAPNEUMOVIRUS NOT DETECTED; INFLUENZA A- RESP PCR PANEL NOT DETECTED; INFLUENZA B - RESP PCR PANEL NOT DETECTED; M. PNEUMONIAE- RESP PCR PANEL NOT DETECTED; PARAINFLUENZA VIRUS 1 NOT DETECTED; PARAINFLUENZA VIRUS 2 NOT DETECTED; PARAINFLUENZA VIRUS 3 NOT DETECTED; PARAINFLUENZA VIRUS 4 NOT DETECTED; RHINOVIRUS/ENTEROVIRUS NOT DETECTED; RSV- RESP PCR PANEL NOT DETECTED; SARS-CoV-2 -RESP PCR PANEL NOT DETECTED
== END 2022-04-13 23:59 | disposition home or self-care (01) ==
LOC: LAB.R 08:00
PROVIDERS: ATTEND Internal Medicine
DX: R05.9 Cough, unspecified (principal); Z20.822 Contact with and (suspected) exposure to COVID-19
CPT/HCPCS: 87633

== ENCOUNTER 2022-04-19 08:00 | Outpatient (CLI) | payer MEDICARE, OTHER ==
[2022-04-19 19:42] LABS: CORONAVIRUS 229E-RESP PCR NOT DETECTED; CORONAVIRUS HKU1-RESP PCR NOT DETECTED; CORONAVIRUS NL63-RESP PCR NOT DETECTED; CORONAVIRUS OC43-RESP PCR NOT DETECTED; HUMAN METAPNEUMOVIRUS NOT DETECTED; INFLUENZA A- RESP PCR PANEL NOT DETECTED; INFLUENZA B - RESP PCR PANEL NOT DETECTED; PARAINFLUENZA VIRUS 1 NOT DETECTED; PARAINFLUENZA VIRUS 2 NOT DETECTED; PARAINFLUENZA VIRUS 3 NOT DETECTED; PARAINFLUENZA VIRUS 4 NOT DETECTED; RHINOVIRUS/ENTEROVIRUS NOT DETECTED; SARS-CoV-2 -RESP PCR PANEL NOT DETECTED
[2022-04-19 19:43] LABS: B. PARAPERTUSSIS- RESP PCR PAN NOT DETECTED; B. PERTUSSIS- RESP PCR PANEL NOT DETECTED; C. PNEUMONIAE- RESP PCR PANEL NOT DETECTED; M. PNEUMONIAE- RESP PCR PANEL NOT DETECTED; RSV- RESP PCR PANEL DETECTED
== END 2022-04-19 23:59 | disposition home or self-care (01) ==
LOC: LAB.R 08:00
PROVIDERS: ATTEND Internal Medicine
DX: Z13.83 Encounter for screening for respiratory disorder NEC (principal); Z20.822 Contact with and (suspected) exposure to COVID-19
CPT/HCPCS: 87633

== ENCOUNTER 2022-04-26 13:50 | Outpatient (CLI) | payer MEDICARE, OTHER | END 2022-04-26 13:51 | disposition critical access hospital (66) | LOC: EMS 13:50 | DX: I82.402 Acute embolism and thrombosis of unspecified deep veins of left lower extremity (principal); M79.662 Pain in left lower leg | CPT/HCPCS: A0425; A0429 ==

== ENCOUNTER 2022-04-26 13:56 | Emergency (ER) | payer MEDICARE, OTHER ==
--- NOTE | 2022-04-26 14:12 | ED Physician Documentation ---
PD HPI LOWER EXT INJURY - Stated complaint Stated Complaint: LLE PX - Chief complaint Chief Complaint: Ext Problem - History obtained from History obtained from: Patient - Additional information Additional information: 82-year-old gentleman who is therapeutically anticoagulated with Eliquis presents from a local [facility] for work-up for DVT in the left lower extremity. He had a fall on April 02 and was admitted here with rhabdomyolysis. Since then he has had pain in the left glez only when he steps down wrong. There is no rest pain. Review of Systems Cardiac: denies: Chest pain / pressure, Palpitations Respiratory: denies: Dyspnea, Cough GI: denies: Abdominal Pain PD PAST MEDICAL HISTORY - Past Medical History Cardiovascular: Hypertension, High cholesterol, Coronary artery disease, Atrial fibrillation Endocrine/Autoimmune: Type 2 diabetes GI: Diverticulitis : Indwelling catheter, Frequency Musculoskeletal: Osteoarthritis - Past Surgical History Past Surgical History: Yes General: Other Ortho: Knee replacement - Present Medications Home Medications: Ambulatory Orders Medication Instructions Recorded Confirmed Apixaban [Eliquis] 5 mg PO BID 06/24/19 03/03/22 Cholecalciferol (Vitamin D3) 200 unit PO DAILY 06/24/19 03/03/22 [Vitamin D3] Furosemide [Lasix] 80 mg PO DAILY 06/24/19 03/03/22 Insulin Glargine,Hum.rec.anlog 30 unit SQ BID 06/24/19 03/03/22 [Basaglar Kwikpen U-100] Multivitamin [Multiple Vitamins] 1 tab PO DAILY 06/24/19 03/03/22 Niacin 500 mg PO DAILY 06/24/19 03/03/22 [place]-3/Dha/Epa/Fish Oil [Fish Oil 1,000 mg PO BID 06/24/19 03/03/22 1,000 mg Softgel] Potassium Chloride 20 meq PO DAILY 06/24/19 03/03/22 amLODIPine [Norvasc] 10 mg PO DAILY 06/24/19 03/03/22 glipiZIDE [Glipizide] 15 mg PO BID 06/24/19 03/03/22 metFORMIN [Glucophage] 1,000 mg PO QPM 06/24/19 03/03/22 metFORMIN [Glucophage] 1,500 mg PO DAILY 06/24/19 03/03/22 Carvedilol [Coreg] 6.25 mg PO DAILY 03/03/22 03/03/22 Insulin Aspart [NovoLOG] 5 unit SQ TID 03/03/22 03/03/22 Losartan [Cozaar] 25 mg PO DAILY 03/03/22 03/03/22 Magnesium Oxide [Magnesium] 200 mg PO DAILY 03/03/22 03/03/22 Telmisartan 80 mg PO DAILY 03/03/22 03/03/22 predniSONE [Deltasone] 10 mg PO MOWEFR 03/03/22 03/03/22 Enoxaparin [Lovenox] 110 mg SUBQ Q12H #180 ea 04/26/22 - Allergies Allergies/Adverse Reactions: Allergies Allergy/AdvReac Type Severity Reaction Status Date / Time Beta-Blockers Allergy Unknown Verified 04/26/22 14:02 (Beta-Adrenergic Bloc pioglitazone [From Actos] Allergy Unknown Verified 04/26/22 14:02 Mhedkba-LRV-TfH Reductase AdvReac Unknown Verified 04/26/22 14:02 Inhibitor [Ijscsfg-Ygg-Esb Reductase Inhibitor] - Social History Does the pt smoke?: No Smoking Status: Never smoker Does the pt drink ETOH?: Yes Does the pt have substance abuse?: No - Immunizations Immunizations are current?: Yes - POLST Patient has POLST: No PD ED PE NORMAL - Vitals Vital signs reviewed: Yes - General General: Alert and oriented X 3, No acute distress - Neck Neck: Supple, no meningeal sign, No bony TTP - Abdomen Abdomen: Normal bowel sounds, Soft, Non tender - Extremities Extremities: Other (The left leg is warm and well-perfused with normal pedal pulses. I am unable to elicit any tenderness about the left leg. Negative Homans' sign.) - Neuro Neuro: Alert and oriented X 3, Normal speech Eye Opening: Spontaneous Motor: Obeys Commands Verbal: Oriented GCS Score: 15 Results - Vitals Vitals: Vital Signs - 24 hr 04/26/22 04/26/22 14:02 16:11 Temperature 37.1 C Heart Rate 88 74 Respiratory 18 16 Rate Blood Pressure 143/98 H 139/92 H O2 Saturation 100 100 If not protocol 4 : Oxygen Flow, liters/minute Oxygen O2 Source Nasal cannula PD Medical Decision Making - ED course ED course: .82-year-old gentleman presents with left leg pain. He is already therapeutically anticoagulated on Eliquis he has good pedal pulses and does not have phlegmasia cerulea dolens or phlegmasia cerulea alba. Ultrasound shows occlusive thrombus in the common femoral and down into the leg. Given that he is already therapeutically anticoagulated, call was placed to hematology oncology as he already sees Dr. Stas Rangel at approximately 3:49 PM for consultation. 82-year-old gentleman weighing 110 kg has a breakthrough DVT in the left leg despite being therapeutically anticoagulated with Lovenox. I discussed the case with his oncologist at approximately 5:11 PM who recommends discontinuing Eliquis and changing to therapeutic dose Lovenox pending follow-up. Departure - Departure Disposition: Home, Self Care Clinical Impression: Left leg DVT Qualifiers: Affected thrombotic vein of extremity: femoral Chronicity: acute Qualified Code(s): I82.412 - Acute embolism and thrombosis of left femoral vein Condition: Good Record reviewed to determine appropriate education?: Yes Instructions: ED DVT Prescriptions: Enoxaparin [Lovenox] 110 mg SUBQ Q12H #180 ea Comments: You were seen today for a large clot in the left leg. Given that you already were on blood thinners, I discussed the case by phone with your oncologist, Dr. Brand who recommends stopping the Eliquis and starting therapeutic dose Lovenox. Unfortunately this will require twice a day injections. He would still like to see you as scheduled in June. Note: Stop Eliquis
--- NOTE | 2022-04-26 16:01 | Ultrasound Report ---
PROCEDURE: Duplex Ext Veins Left INDICATIONS: leg pain TECHNIQUE: Real-time imaging, as well as color and pulse Doppler interrogation, were performed of the lower extr emity deep veins from the inguinal ligament to the popliteal fossa. COMPARISON: None. FINDINGS: Occlusive thrombus is noted in the left common femoral and distal superficial femoral veins . There is limited visualization of the proximal superficial femoral, popliteal as well as common and external iliac veins. Calf veins are not visualized secondary to edema. Nonocclusive thrombus is pre sent in the left profunda vein. IMPRESSION: Limited visualization of exam as above. However, there is occlusive thrombus in the left common femor al and distal superficial femoral vein and nonocclusive thrombus in the left profunda. Reviewed by: Tatiana Mesa MD on 04/26/2022 4:00 PM PST Approved by: Tatiana Mesa MD on 04/26/2022 4:00 PM PST Station ID: [id number]
[2022-04-26] MEDS ORDERED: ENOXAPARIN 120 MG/0.8 ML SYRINGE SUBQ STA (17:10)
[2022-04-26 17:23] VITALS: BP 125/78
== END 2022-04-26 17:55 | disposition home or self-care (01) ==
LOC: EDUNIT# → ED 13:56
DX: I82.412 Acute embolism and thrombosis of left femoral vein (principal); Z79.01 Long term (current) use of anticoagulants
CPT/HCPCS: 93971; 96372; 99284; J1650

== ENCOUNTER 2022-05-03 14:58 | Outpatient (CLI) | payer MEDICARE, OTHER ==
[2022-05-03 20:12] LABS: ESTIMATED AVERAGE GLUCOSE 137 mg/dL (70-100); HEMOGLOBIN A1c% 6.4 % (4.27-6.07)
== END 2022-05-03 14:59 | disposition home or self-care (01) ==
LOC: LAB 14:58
PROVIDERS: ATTEND Internal Medicine
DX: E11.9 Type 2 diabetes mellitus without complications (principal)
CPT/HCPCS: 36415; 83036

== ENCOUNTER 2022-06-14 12:21 | Outpatient (CLI) | payer MEDICARE, OTHER | END 2022-06-14 18:59 | disposition critical access hospital (66) | LOC: EMS 12:21 | DX: M25.552 Pain in left hip (principal); S70.02XA Contusion of left hip, initial encounter; S30.1XXA Contusion of abdominal wall, initial encounter; X58.XXXA Exposure to other specified factors, initial encounter; Z79.01 Long term (current) use of anticoagulants | CPT/HCPCS: A0425; A0429 ==

== ENCOUNTER 2022-06-14 12:48 | Emergency (ER) | payer MEDICARE, OTHER ==
--- NOTE | 2022-06-14 12:53 | ED Physician Documentation ---
PD HPI LOWER EXT INJURY - Stated complaint Stated Complaint: L HIP PX - History obtained from History obtained from: Patient, EMS PD PAST MEDICAL HISTORY - Past Medical History Cardiovascular: Hypertension, High cholesterol, Coronary artery disease, Atrial fibrillation Endocrine/Autoimmune: Type 2 diabetes GI: Diverticulitis : Indwelling catheter, Frequency Musculoskeletal: Osteoarthritis - Past Surgical History Past Surgical History: Yes General: Other Ortho: Knee replacement - Present Medications Home Medications: Ambulatory Orders Medication Instructions Recorded Confirmed Apixaban [Eliquis] 5 mg PO BID 06/24/19 03/03/22 Cholecalciferol (Vitamin D3) 200 unit PO DAILY 06/24/19 03/03/22 [Vitamin D3] Furosemide [Lasix] 80 mg PO DAILY 06/24/19 03/03/22 Insulin Glargine,Hum.rec.anlog 30 unit SQ BID 06/24/19 03/03/22 [Basaglar Kwikpen U-100] Multivitamin [Multiple Vitamins] 1 tab PO DAILY 06/24/19 03/03/22 Niacin 500 mg PO DAILY 06/24/19 03/03/22 [place]-3/Dha/Epa/Fish Oil [Fish Oil 1,000 mg PO BID 06/24/19 03/03/22 1,000 mg Softgel] Potassium Chloride 20 meq PO DAILY 06/24/19 03/03/22 amLODIPine [Norvasc] 10 mg PO DAILY 06/24/19 03/03/22 glipiZIDE [Glipizide] 15 mg PO BID 06/24/19 03/03/22 metFORMIN [Glucophage] 1,000 mg PO QPM 06/24/19 03/03/22 metFORMIN [Glucophage] 1,500 mg PO DAILY 06/24/19 03/03/22 Carvedilol [Coreg] 6.25 mg PO DAILY 03/03/22 03/03/22 Insulin Aspart [NovoLOG] 5 unit SQ TID 03/03/22 03/03/22 Losartan [Cozaar] 25 mg PO DAILY 03/03/22 03/03/22 Magnesium Oxide [Magnesium] 200 mg PO DAILY 03/03/22 03/03/22 Telmisartan 80 mg PO DAILY 03/03/22 03/03/22 predniSONE [Deltasone] 10 mg PO MOWEFR 03/03/22 03/03/22 Enoxaparin [Lovenox] 110 mg SUBQ Q12H #180 ea 04/26/22 Acetaminophen [Tylenol] 650 mg PO Q6H PRN #30 tab 05/21/22 - Allergies Allergies/Adverse Reactions: Allergies Allergy/AdvReac Type Severity Reaction Status Date / Time Beta-Blockers Allergy Unknown Verified 05/21/22 18:27 (Beta-Adrenergic Bloc pioglitazone [From Actos] Allergy Unknown Verified 05/21/22 18:27 Zuyppbc-AJX-AxU Reductase AdvReac Unknown Verified 05/21/22 18:27 Inhibitor [Jpbkhfk-Pof-Sxv Reductase Inhibitor] - Social History Does the pt smoke?: No Smoking Status: Never smoker Does the pt drink ETOH?: Yes Does the pt have substance abuse?: No - Immunizations Immunizations are current?: Yes - POLST Patient has POLST: No Results - Vitals Vitals: Oxygen O2 Source Nasal cannula
--- NOTE | 2022-06-14 13:38 | ED Physician Documentation ---
PD HPI BACK PAIN - Stated complaint Stated Complaint: L HIP PX - Chief complaint Chief Complaint: General - History obtained from History obtained from: Patient, EMS - History of Present Illness Timing - onset: Last night (The patient to me describes having felt a little weak and sliding out of bed onto his back. He is not clear the timing of that. He does have some dementia so his timeline is unclear. However he was noted to have bruising in his flank and lower back of unknown certain cause and referred to the ER.) Timing - duration: Hours Timing - details: Other (Unknown onset time of the bruising. The patient is a resident at [facility] so presumably has body checks with clothing changes etc. so presume this is a new onset bruising today.) Location: Lower (The patient has purple bruising without tenderness in the right lower back and flank area which extends some to the left lower back. No tenderness midline.), Right, Left Quality: No: Pain, Aching Associated symptoms: No: Fever, Weakness, Numbness Worsened by: No: Movement Similar symptoms before: Has not had sx before Recently seen: Clinic (office visit early this week without abnormal findings but did complain of buttock hurting.) Review of Systems Constitutional: denies: Fever Respiratory: denies: Cough GI: denies: Abdominal Pain, Vomiting, Hematemesis, Bloody / black stool Skin: denies: Abrasion (s), Laceration (s) Neurologic: reports: Generalized weakness. denies: Focal weakness, Numbness, Headache PD PAST MEDICAL HISTORY - Past Medical History Past Medical History: Yes Cardiovascular: Congestive heart failure, Hypertension, High cholesterol, Coronary artery disease, Atrial fibrillation Respiratory: Sleep apnea Neuro: Dementia Endocrine/Autoimmune: Type 2 diabetes GI: Diverticulitis, Other (no GI bleeding history) : Renal insuffiency, Indwelling catheter, Frequency HEENT: None Psych: Other Musculoskeletal: Osteoarthritis, Other Derm: None Other Past Medical History: L FOOT DROP...GENERALIZED MUSCLE WEAKNESS.. - Past Surgical History Past Surgical History: Yes General: Other Ortho: Knee replacement - Present Medications Home Medications: Ambulatory Orders Medication Instructions Recorded Confirmed Apixaban [Eliquis] 5 mg PO BID 06/24/19 03/03/22 Cholecalciferol (Vitamin D3) 200 unit PO DAILY 06/24/19 03/03/22 [Vitamin D3] Furosemide [Lasix] 80 mg PO DAILY 06/24/19 03/03/22 Insulin Glargine,Hum.rec.anlog 30 unit SQ BID 06/24/19 03/03/22 [[place] U-100] Multivitamin [Multiple Vitamins] 1 tab PO DAILY 06/24/19 03/03/22 Niacin 500 mg PO DAILY 06/24/19 03/03/22 [place]-3/Dha/Epa/Fish Oil [Fish Oil 1,000 mg PO BID 06/24/19 03/03/22 1,000 mg Softgel] Potassium Chloride 20 meq PO DAILY 06/24/19 03/03/22 amLODIPine [Norvasc] 10 mg PO DAILY 06/24/19 03/03/22 glipiZIDE [Glipizide] 15 mg PO BID 06/24/19 03/03/22 metFORMIN [Glucophage] 1,000 mg PO QPM 06/24/19 03/03/22 metFORMIN [Glucophage] 1,500 mg PO DAILY 06/24/19 03/03/22 Carvedilol [Coreg] 6.25 mg PO DAILY 03/03/22 03/03/22 Insulin Aspart [NovoLOG] 5 unit SQ TID 03/03/22 03/03/22 Losartan [Cozaar] 25 mg PO DAILY 03/03/22 03/03/22 Magnesium Oxide [Magnesium] 200 mg PO DAILY 03/03/22 03/03/22 Telmisartan 80 mg PO DAILY 03/03/22 03/03/22 predniSONE [Deltasone] 10 mg PO MOWEFR 03/03/22 03/03/22 Enoxaparin [Lovenox] 110 mg SUBQ Q12H #180 ea 04/26/22 Acetaminophen [Tylenol] 650 mg PO Q6H PRN #30 tab 05/21/22 - Allergies Allergies/Adverse Reactions: Allergies Allergy/AdvReac Type Severity Reaction Status Date / Time Beta-Blockers Allergy Unknown Verified 05/21/22 18:27 (Beta-Adrenergic Bloc pioglitazone [From Actos] Allergy Unknown Verified 05/21/22 18:27 Gifwblg-IZJ-AeZ Reductase AdvReac Unknown Verified 05/21/22 18:27 Inhibitor [Pcifkpg-Prk-Szh Reductase Inhibitor] - Social History Does the pt smoke?: No Smoking Status: Never smoker Does the pt drink ETOH?: Yes Does the pt have substance abuse?: No - Immunizations Immunizations are current?: Yes - POLST Patient has POLST: No PD ED PE NORMAL - Vitals Vital signs reviewed: Yes - General General: Alert and oriented X 3, No acute distress (He does not appear in discomfort. There is no head tenderness. Bruising noted along the mid to lower back which is purple in color and nontender.), Well developed/nourished - HEENT HEENT: Atraumatic - Neck Neck: Supple, no meningeal sign, No bony TTP, No adenopathy - Cardiac Cardiac: No murmur - Respiratory Respiratory: No respiratory distress, Clear bilaterally, Other (no chestwall tenderness) - Abdomen Abdomen: Normal bowel sounds, Soft, Non tender - Male Male : Other (Ortiz catheter in place with good drainage.) - Rectal Rectal: Other (Rectal exam done with soft brown stool in the vault. It test guaiac negative. There is a softball sized round firmness in the left gluteal area consistent with hematoma.) - Back Back: No CVA TTP, No spinal TTP, Other (The patient has diffuse bruising in the lower back to flank area more on the right than the left. Nontender in those areas.) - Derm Derm: Warm and dry - Extremities Extremities: No edema, No calf tenderness / cord, Other (He does not have any tenderness in his hips and there is no pain with passive rotation nor impacti on.) - Neuro Neuro: Alert and oriented X 3, No motor deficit, Normal speech Results - Vitals Vitals: Vital Signs - 24 hr 06/14/22 06/14/22 06/14/22 12:57 13:00 13:46 Temperature 36.7 C Heart Rate 72 86 93 Heart Rate [ Monitoring electrodes] Respiratory 17 20 16 Rate Blood Pressure 117/65 131/75 H 108/65 Blood Pressure [Left Brachial artery] O2 Saturation 79 L 100 If not protocol 2 2 : Oxygen Flow, liters/minute 06/14/22 06/14/22 06/14/22 14:08 15:18 15:31 Temperature 36.8 C 36.8 C Heart Rate 85 Heart Rate [ 91 87 Monitoring electrodes] Respiratory 21 22 22 Rate Blood Pressure 114/72 Blood Pressure 130/82 H 121/69 [Left Brachial artery] O2 Saturation 100 99 If not protocol 2 2 : Oxygen Flow, liters/minute 06/14/22 06/14/22 06/14/22 15:36 15:42 16:02 Temperature 36.6 C 36.8 C Heart Rate Heart Rate [ 80 90 87 Monitoring electrodes] Respiratory 21 22 21 Rate Blood Pressure Blood Pressure [Left Brachial artery] O2 Saturation 99 100 100 If not protocol 2 2 2 : Oxygen Flow, liters/minute 06/14/22 06/14/22 06/14/22 16:15 16:19 16:33 Temperature Heart Rate 79 Heart Rate [ 85 Monitoring electrodes] Respiratory 22 22 22 Rate Blood Pressure 136/83 H Blood Pressure 138/84 H [Left Brachial artery] O2 Saturation 100 100 If not protocol 2 2 2 : Oxygen Flow, liters/minute 06/14/22 06/14/22 06/14/22 17:27 18:09 18:13 Temperature 36.7 C Heart Rate 98 92 Heart Rate [ 94 Monitoring electrodes] Respiratory 23 20 21 Rate Blood Pressure 128/76 Blood Pressure 165/82 H [Left Brachial artery] O2 Saturation 100 100 100 If not protocol 2 2 2 : Oxygen Flow, liters/minute 06/14/22 19:10 Temperature Heart Rate 89 Heart Rate [ Monitoring electrodes] Respiratory 19 Rate Blood Pressure 129/74 Blood Pressure [Left Brachial artery] O2 Saturation 99 If not protocol : Oxygen Flow, liters/minute Oxygen O2 Source Room air Oxygen Flow Rate 2 - Labs Labs: Microbiology 06/14/22 15:06 Occult Blood - Final Stool Laboratory Tests 06/14/22 06/14/22 06/14/22 13:10 13:10 14:00 WBC 18.2 H RBC 2.20 L Hgb 6.6 L* Hct 22.1 L MCV 100.5 H MCH 30.0 MCHC 29.9 L RDW 14.6 Plt Count 479 H MPV 11.2 Neut # (Auto) Not Reportable Lymph # (Auto) Not Reportable [place] # (Auto) Not Reportable Eos # (Auto) Not Reportable Baso # (Auto) Not Reportable Absolute Nucleated RBC Not Reportable Total Counted 100 Band Neuts % (Manual) 0 Abnorm Lymph % (Manual) 0 Nucleated RBC % Not Reportable Neutrophils # (Manual) 11.6 H Lymphocytes # (Manual) 3.3 Monocytes # (Manual) 2.7 H Eosinophils # (Manual) 0.4 Basophils # (Manual) 0.2 H Nucleated RBCs 2 Differential Comment MANUAL DIFFERENTIAL Platelet Estimate INCREASED (>450,000) Platelet Morphology NORMAL APPEARANCE RBC Morph Micro Appear 1+ POLYCHROMASIA PT 14.7 H INR 1.3 H Sodium 135 Potassium 4.4 Chloride 100 L Carbon Dioxide 25 Anion Gap 10.0 BUN 36 H Creatinine 1.1 Estimated GFR (MDRD) 64 L Glucose 230 H Calcium 8.7 Total Bilirubin 1.0 AST 18 ALT < 10 L Alkaline Phosphatase 87 Total Protein 6.6 L Albumin 2.7 L Globulin 3.9 Albumin/Globulin Ratio 0.7 L Lipase 25 Blood Type Blood Type Recheck Antibody Screen Crossmatch IS Only 06/14/22 06/14/22 06/14/22 14:00 14:32 18:10 WBC RBC Hgb 7.2 L Hct 24.0 L MCV MCH MCHC RDW Plt Count MPV Neut # (Auto) Lymph # (Auto) [place] # (Auto) Eos # (Auto) Baso # (Auto) Absolute Nucleated RBC Total Counted Band Neuts % (Manual) Abnorm Lymph % (Manual) Nucleated RBC % Neutrophils # (Manual) Lymphocytes # (Manual) Monocytes # (Manual) Eosinophils # (Manual) Basophils # (Manual) Nucleated RBCs Differential Comment Platelet Estimate Platelet Morphology RBC Morph Micro Appear PT INR Sodium Potassium Chloride Carbon Dioxide Anion Gap BUN Creatinine Estimated GFR (MDRD) Glucose Calcium Total Bilirubin AST ALT Alkaline Phosphatase Total Protein Albumin Globulin Albumin/Globulin Ratio Lipase Blood Type O NEGATIVE Blood Type Recheck O NEGATIVE Antibody Screen NEGATIVE Crossmatch IS Only See Detail - Rads (name of study) abd/pelvic CT Radiology: Prelim report reviewed (lymphadenopathy, large hematoma left gluteal area. right retroperitoneal hematoma. right rectum sheath hematoma. Some thickening of posterior bladder wall. Also the ortiz was partly out with the balloon in protstatic urethra. ), See rad report head ct Radiology: Prelim report reviewed, EMP read indepedently (no ICH), See rad report PD Medical Decision Making - ED course Complexity details: re-evaluated patient (He still appears well. Some confusion but he is able to answer questions and interacts. He has gotten his unit of blood and we will recheck his H&H.), considered differential, d/w patient, d/w family (I talked with his daughter who is listed as the contact center team lead the regions contact form. She states the patient had had a known fall on May 27 but did not have any noted pain or bruising or such at that time. He had a in office visit last week and did complain of discomfort sitting in chair), d/w healthcare network consultant (Consulted with our hospitalist who felt the patient did not necessarily need observation in the hospital. [facility] and can get nursing evaluation there and ease enough to get a repeat blood count tomorrow. I talked with the patient's daughter who understands rationale.) ED course: The patient comes from jail facility [facility]. Report from caregivers there is a noticed bruising in his flank and low back of unknown cause. The patient describes sliding out of bed with a mild fall and rubbing against his back. He is not sure when it happened. He is on a blood thinner for atrial fibrillation. He is not having any pain in his flank or back. Ongoing pain in the knees which she states is normal for him. No hip pain. He does have notable bruising without tenderness. I presume there was more either flank bleeding or retroperitoneal with subsequent leaching from gravity into the flank area. We will get a CT scan with contrast to evaluate for any hematomas or acute bleeding. Abdomen is soft nontender. I talked with his daughter by phone. She is visits the patient often and is familiar with them. She is the 1 that stated they noted the bruising starting last night or first noticed it last night when they were visiting him. He did not have any apparent fall recently. He did state he was uncomfortable sitting in the chair. They are concerned about his hip. They state he did have a recent office visit with his primary care Dr. Trevizo. Reportedly the patient had a blood count done about 1 month ago while at [facility] and Dr. Trevizo had the result. I do not see a blood count from April in our system so not sure where that is. The patient does not have a history of anemia. Prior history of polycythemia but that had normalized and had not needed any recent treatments. He had a recent diagnosis of a blood clot in the left leg for which she is receiving enoxaparin injections. I did do a rectal exam here and he does not have any blood in his stool. The only apparent area of blood loss would be the hematoma. Concern would be the timeline of when that occurred and whether there is still ongoing loss. Serial hemoglobins may be appropriate. - Critical Care Time(min): 50 Time Includes: Direct patient care (patient with low blod count presumed acute blood loww. He [place] need transfusion of unit RBCs. Will need to watch for transfusion reaction and side effects.), Review records, Document care, Coordinate care, Medical consult Data interpretation: Labs, Pulse ox Departure - Departure Disposition: Home, Self Care Clinical Impression: Anemia due to blood loss, acute, Hematoma and contusion Anticoagulant causing adverse effect in therapeutic use Qualifiers: Encounter type: initial encounter Qualified Code(s): T45.515A - Adverse effect of anticoagulants, initial encounter Condition: Stable Record reviewed to determine appropriate education?: Yes Instructions: ED Hematoma Follow-Up: Srikanth Bermeo MD [Provider Admit Priv/Credential] - Comments: Suggestions for care: 1. Hold the enoxaparin for 3 to [address] Trevizo regarding further guidance on that and likely lowered dose when resumed. 3. Repeat hemoglobin and hematocrit on 06/15/2022 4. Continue other usual medicines. Discharge Date/Time: 06/14/22 20:00
[2022-06-14 13:44] LABS: BASOPHILS % (AUTO) 0.3 %; HCT - HEMATOCRIT 22.1 % (42.0-52.0); LYMPHOCYTES % (AUTO) 30.4 %; MEAN CORPUSCULAR HGB CONC 29.9 g/dL (32.0-36.0); MEAN CORPUSCULAR VOLUME 100.5 fL (80.0-94.0); MEAN PLATELET VOLUME 11.2 fL (7.4-11.4); MONOCYTES % (AUTO) 8.8 %; NEUTROPHILS % (AUTO) 56.6 %; PLT - PLATELET COUNT 479 10^3/uL (130-450); RED CELL DISTRIBUTION WIDTH 14.6 % (12.0-15.0); WHITE BLOOD COUNT 18.2 x10^3/uL (4.8-10.8)
[2022-06-14 13:47] LABS: HGB - HEMOGLOBIN 6.6 g/dL (14.0-18.0)
[2022-06-14 13:48] LABS: ABNORMAL LYMPHS % (MANUAL) 0 %; BAND NEUTROPHILS % (MANUAL) 0 %
[2022-06-14 13:57] LABS: ALBUMIN 2.7 g/dL (3.2-5.5); ALBUMIN/GLOBULIN RATIO 0.7 (1.0-2.2); ALKALINE PHOSPHATASE 87 IU/L (42-121); ALT ALANINE AMINOTRANSFERASE < 10 IU/L (10-60); AST ASPARTATE AMINOTRANSFERASE 18 IU/L (10-42); BUN - BLOOD UREA NITROGEN 36 mg/dL (6-20); CALCIUM 8.7 mg/dL (8.5-10.3); CARBON DIOXIDE - CO2 25 mmol/L (21-32); CHLORIDE 100 mmol/L (101-111); CREATININE 1.1 mg/dL (0.6-1.2); GFR - MDRD 64 (>89); GLUCOSE 230 mg/dL (70-100); LIPASE 25 U/L (22-51); POTASSIUM 4.4 mmol/L (3.5-5.0); SODIUM 135 mmol/L (135-145); TOTAL PROTEIN 6.6 g/dL (6.7-8.2)
[2022-06-14 14:13] LABS: BASOPHILS # (MANUAL) 0.2 10^3/uL (0-0.1); BASOPHILS % (MANUAL) 1 %; EOSINOPHILS # (MANUAL) 0.4 10^3/uL (0-0.7); LYMPHOCYTES # (MANUAL) 3.3 10^3/uL (1.5-3.5); LYMPHOCYTES % (MANUAL) 18 %; MONOCYTES # (MANUAL) 2.7 10^3/uL (0.0-1.0); NEUTROPHILS # (MANUAL) 11.6 10^3/uL (1.5-6.6); NUCLEATED RBC (MANUAL) 2 %
[2022-06-14 14:14] LABS: INR 1.3 (0.8-1.2); PT - PROTHROMBIN TIME 14.7 secs (9.9-12.6)
[2022-06-14 14:15] LABS: DIFFERENTIAL COMMENT MANUAL DIFFERENTIAL; PLATELET ESTIMATE, MANUAL INCREASED (>450,000) (NORMAL); PLATELET MORPHOLOGY NORMAL APPEARANCE (NORMAL)
[2022-06-14] MEDS ORDERED: iohexoL-300 100 ML VIAL ONE (14:16)
[2022-06-14] MEDS ORDERED: iohexoL-300 100 ML VIAL IVP ONE (15:02)
--- NOTE | 2022-06-14 15:52 | CT Report ---
PROCEDURE: HEAD WO INDICATIONS: fall likely; on DOAC TECHNIQUE: Noncontrast 4.5 mm thick angled axial sections acquired from the foramen magnum to the vertex. For r adiation dose reduction, the following was used: automated exposure control, adjustment of mA and/or kV according to patient size. COMPARISON: CT angiogram of the head with and without contrast dated 06/05/2021, CT head dated 2021.. FINDINGS: Image quality: Excellent. CSF spaces: Basal cisterns are patent. No extra-axial fluid collections. Ventricles are normal in size and shape. Brain: No midline shift. There is a small incidental anterior left frontal para-midline meningioma w hich measures approximately 1.3 cm in diameter. It is very subtle, and is unchanged. No worrisome mas ses. No acute hemorrhage. Davis-white matter interface is normal. Age-related volume loss and moderat e small vessel ischemic change. Skull and face: Calvarium and visualized facial bones are intact, without suspicious lesions. Sinuses: Visualized sinuses and mastoids are clear. IMPRESSION: 1. Incidental small anterior left frontal meningioma. 2. Age-related volume loss and moderate small vessel ischemic change. 3. No evidence acute intracranial process. Reviewed by: Joel Ruvalcaba MD on 06/14/2022 3:51 PM PST Approved by: Joel Ruvalcaba MD on 06/14/2022 3:51 PM PST Station ID: [id number]
--- NOTE | 2022-06-14 16:20 | CT Report ---
PROCEDURE: ABDOMEN/PELVIS W INDICATIONS: Abdominal pain, acute, nonlocalized CONTRAST: 100ml Omnipaque 300 TECHNIQUE: After the administration of intravenous contrast, 5 mm thick sections acquired from the diaphragms to the symphysis. 5 mm thick coronal and sagittal reformats were acquired. For radiation dose reducti on, the following was used: automated exposure control, adjustment of mA and/or kV according to elvie ent size. COMPARISON: 03/03/2022 FINDINGS: Image quality: Excellent. ABDOMEN: Lung bases: Small right pleural effusion. Mild dependent right basilar atelectasis versus pneumonia. Heart size is enlarged. Calcification of the coronary vasculature. Solid organs: Liver and spleen are normal in size and enhancement. Hepatic contour is nodular. No f ocal hepatic mass. Gallbladder demonstrate multiple calculi within its lumen Biliary system is non d ilated. Pancreas enhances normally. No change in left adrenal nodule measuring 18 mm diameter. No r ight adrenal nodules. Kidneys demonstrate normal size and enhancement, without hydronephrosis. Bila teral renal cysts are present. Peritoneum and bowel: Small hiatal hernia. Moderate to large amount of stool within the rectum. Thick ening of the posterior rectum. Bowel loops demonstrate otherwise normal wall thickness and caliber. No free fluid or air. Nodes and vessels: Left iliac chain adenopathy is present, largest of which measures roughly 33 mm sh ort axis, new since the prior examination. Aorta and inferior vena cava are normal in size. Miscellaneous: No ventral hernias. There is a right-sided rectus sheath hematoma measuring 74 mm tr ansverse by 15 mm anteroposterior by 90 mm craniocaudal. Focal region of soft tissue density within t he subcutaneous fat of the left anterior abdominal wall measuring 44 mm transverse. PELVIS: Genitourinary: There is thickening of the posterior bladder. Tiwari catheter balloon is within the pro static urethra. Miscellaneous: No inguinal hernias or adenopathy. Left gluteal high density region is present measu ring 100 mm, extending into the posterior compartment of the left thigh. Bones: No suspicious bony lesions. No vertebral body compression fractures. IMPRESSION: 1. Right rectus sheath hematoma. 2. High density focus within the left gluteal musculature and posterior thigh, suggestive of hematoma versus neoplasm. 3. 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 Finding was discussed with Dr. Hernandes on 06/14/2022 at 1615 hours. 4. Left iliac chain adenopathy, consistent with metastatic disease versus lymphoma. 5. Indeterminate left adrenal nodule. 6. Cholelithiasis. 7. Coronary artery disease. 8. Right basilar atelectasis versus pneumonia with small right-sided pleural effusion. 9. Findings suggestive of cirrhosis. 10. Subcutaneous soft tissue density within the left anterior abdominal wall, which is indeterminate. 11. Posterior urinary bladder thickening, possibly neoplastic. Next line 12. Small hiatal hernia. 12. Fecal impaction of the rectum. 13. Thickening of the posterior rectum. Initial further assessment with endoscopy is recommended. Reviewed by: Farhan Felipe MD on 06/14/2022 4:19 PM PST Approved by: Farhan Felipe MD on 06/14/2022 4:19 PM PST Station ID: [id number]
[2022-06-14 18:14] LABS: HGB - HEMOGLOBIN 7.2 g/dL (14.0-18.0)
[2022-06-14 19:12] VITALS: BP 129/74
== END 2022-06-14 20:00 | disposition home or self-care (01) ==
LOC: EDUNIT# → ED 12:48
DX: S30.0XXA Contusion of lower back and pelvis, initial encounter (principal); X58.XXXA Exposure to other specified factors, initial encounter; Y92.9 Unspecified place or not applicable; D62 Acute posthemorrhagic anemia; T45.515A Adverse effect of anticoagulants, initial encounter; I11.0 Hypertensive heart disease with heart failure; I50.9 Heart failure, unspecified; E78.00 Pure hypercholesterolemia, unspecified; I25.10 Atherosclerotic heart disease of native coronary artery without angina pectoris; I48.91 Unspecified atrial fibrillation; E11.9 Type 2 diabetes mellitus without complications; F03.90 Unspecified dementia, unspecified severity, without behavioral disturbance, psychotic disturbance, mood disturbance, and anxiety; Z79.01 Long term (current) use of anticoagulants; Z79.899 Other long term (current) drug therapy; Z79.4 Long term (current) use of insulin; Z79.84 Long term (current) use of oral hypoglycemic drugs
CPT/HCPCS: 36415; 36430; 70450; 74177; 80053; 82272; 83690; 85014; 85018; 85025; 85610; 86850; 86900; 86901; 86920; 99291; P9016; Q9967; 81001; 81003; 87086

== ENCOUNTER 2022-06-14 20:03 | Outpatient (CLI) | payer MEDICARE, OTHER | END 2022-06-14 20:04 | LOC: EMS 20:03 | PROVIDERS: ATTEND Emergency Medicine | DX: R53.1 Weakness (principal); F03.90 Unspecified dementia, unspecified severity, without behavioral disturbance, psychotic disturbance, mood disturbance, and anxiety; Z74.01 Bed confinement status; M25.559 Pain in unspecified hip; S70.02XA Contusion of left hip, initial encounter; S70.01XA Contusion of right hip, initial encounter; S30.1XXA Contusion of abdominal wall, initial encounter; X58.XXXA Exposure to other specified factors, initial encounter; Z79.01 Long term (current) use of anticoagulants | CPT/HCPCS: A0425; A0428 ==

== ENCOUNTER 2022-06-15 13:26 | Outpatient (CLI) | payer MEDICARE, OTHER ==
[2022-06-15 13:48] LABS: HCT - HEMATOCRIT 23.3 % (42.0-52.0)
[2022-06-15 13:50] LABS: BILIRUBIN,URINE NEGATIVE (NEGATIVE); GLUCOSE, URINE (UA) NEGATIVE (NEGATIVE); KETONES,URINE (UA) NEGATIVE (NEGATIVE); LEUKOCYTE ESTERASE, URINE MODERATE (NEGATIVE); NITRITE,URINE POSITIVE (NEGATIVE); OCCULT BLOOD,URINE TRACE-INTA (NEGATIVE); PH,URINE 8.5 PH (5.0-7.5); PROTEIN,URINE 30 mg/dL (NEGATIVE); UROBILINOGEN,URINE 0.2 (NORMAL) E.U./dL (NORMAL)
[2022-06-15 13:53] LABS: CLARITY,URINE SL. CLOUDY (CLEAR)
== END 2022-06-15 13:27 | disposition home or self-care (01) ==
LOC: LAB.R 13:26
DX: D64.9 Anemia, unspecified (principal); N39.0 Urinary tract infection, site not specified
CPT/HCPCS: 81003; 85014; 85018; 87077; 87086; 87181

== ENCOUNTER 2022-06-15 16:04 | Outpatient (CLI) | payer MEDICARE, OTHER | END 2022-06-15 16:05 | disposition critical access hospital (66) | LOC: EMS 16:04 | DX: D64.9 Anemia, unspecified (principal); R23.3 Spontaneous ecchymoses | CPT/HCPCS: A0425; A0429 ==

== ENCOUNTER 2022-06-15 16:12 | Emergency (ER) | payer MEDICARE, OTHER ==
--- NOTE | 2022-06-15 16:30 | ED Physician Documentation ---
PD HPI ABD PAIN - Stated complaint Stated Complaint: ABNORMAL LABS - History obtained from History obtained from: Patient - Additional information Additional information: 82-year-old gentleman with recent breakthrough DVT who was on Eliquis in the group home for dementia saw my partner yesterday. He had a hematoma L hip and hgb 6.6. Post transfusion Hgb 7.2. This Morning he was checked again and it was 7.0 so he was referred back. Orders accompanying the patient's state to send back for critical hemoglobin and liver ultrasound and CT of the abdomen. CT of the abdomen was done yesterday and there were findings potentially for melanie gonzalez. My partner had discussed this by phone with the daughter who did not want to pursue further work-up. PD PAST MEDICAL HISTORY - Past Medical History Cardiovascular: Congestive heart failure, Hypertension, High cholesterol, Coronary artery disease, Atrial fibrillation Respiratory: Sleep apnea Neuro: Dementia Endocrine/Autoimmune: Type 2 diabetes GI: Diverticulitis, Other (no GI bleeding history) : Renal insuffiency, Indwelling catheter, Frequency HEENT: None Psych: Other Musculoskeletal: Osteoarthritis, Other Derm: None - Past Surgical History Past Surgical History: Yes General: Other Ortho: Knee replacement - Present Medications Home Medications: Ambulatory Orders Medication Instructions Recorded Confirmed Apixaban [Eliquis] 5 mg PO BID 06/24/19 03/03/22 Cholecalciferol (Vitamin D3) 200 unit PO DAILY 06/24/19 03/03/22 [Vitamin D3] Furosemide [Lasix] 80 mg PO DAILY 06/24/19 03/03/22 Insulin Glargine,Hum.rec.anlog 30 unit SQ BID 06/24/19 03/03/22 [Basaglar Kwikpen U-100] Multivitamin [Multiple Vitamins] 1 tab PO DAILY 06/24/19 03/03/22 Niacin 500 mg PO DAILY 06/24/19 03/03/22 [place]ifton-3/Dha/Epa/Fish Oil [Fish Oil 1,000 mg PO BID 06/24/19 03/03/22 1,000 mg Softgel] Potassium Chloride 20 meq PO DAILY 06/24/19 03/03/22 amLODIPine [Norvasc] 10 mg PO DAILY 06/24/19 03/03/22 glipiZIDE [Glipizide] 15 mg PO BID 06/24/19 03/03/22 metFORMIN [Glucophage] 1,000 mg PO QPM 06/24/19 03/03/22 metFORMIN [Glucophage] 1,500 mg PO DAILY 06/24/19 03/03/22 Carvedilol [Coreg] 6.25 mg PO DAILY 03/03/22 03/03/22 Insulin Aspart [NovoLOG] 5 unit SQ TID 03/03/22 03/03/22 Losartan [Cozaar] 25 mg PO DAILY 03/03/22 03/03/22 Magnesium Oxide [Magnesium] 200 mg PO DAILY 03/03/22 03/03/22 Telmisartan 80 mg PO DAILY 03/03/22 03/03/22 predniSONE [Deltasone] 10 mg PO MOWEFR 03/03/22 03/03/22 Enoxaparin [Lovenox] 110 mg SUBQ Q12H #180 ea 04/26/22 Acetaminophen [Tylenol] 650 mg PO Q6H PRN #30 tab 05/21/22 - Allergies Allergies/Adverse Reactions: Allergies Allergy/AdvReac Type Severity Reaction Status Date / Time Beta-Blockers Allergy Unknown Verified 05/21/22 18:27 (Beta-Adrenergic Bloc pioglitazone [From Actos] Allergy Unknown Verified 05/21/22 18:27 Aqcnldn-IGA-LrQ Reductase AdvReac Unknown Verified 05/21/22 18:27 Inhibitor [Exedqir-Shn-Rlf Reductase Inhibitor] - Social History Does the pt smoke?: No Smoking Status: Never smoker Does the pt drink ETOH?: Yes Does the pt have substance abuse?: No - Immunizations Immunizations are current?: Yes - POLST Patient has POLST: No PD ED PE NORMAL - Vitals Vital signs reviewed: Yes - General General: Other (Pleasantly confused, alert and oriented to person and place but not time or events.) - HEENT HEENT: PERRL, EOMI - Neck Neck: Supple, no meningeal sign, No bony TTP - Abdomen Abdomen: Other (Abd wall lump RLE, NTTP) - Extremities Extremities: No deformity, No tenderness to palpate, Normal ROM s pain, Other (Significant bruising L hip and hamstring) - Neuro Eye Opening: Spontaneous Motor: Obeys Commands Verbal: Confused GCS Score: 14 Results - Vitals Vitals: Vital Signs - 24 hr 06/15/22 06/15/22 06/15/22 16:38 19:20 19:36 Temperature 36.7 C 37.0 C 36.9 C Heart Rate 89 Heart Rate [ 80 74 Monitoring electrodes] Respiratory 18 18 18 Rate Blood Pressure 119/81 H Blood Pressure 129/78 128/88 H [Right Brachial artery] O2 Saturation 100 100 98 06/15/22 20:00 Temperature Heart Rate 92 Heart Rate [ Monitoring electrodes] Respiratory 18 Rate Blood Pressure 120/96 H Blood Pressure [Right Brachial artery] O2 Saturation 98 Oxygen O2 Source Room air - Labs Labs: Laboratory Tests 06/15/22 06/15/22 17:11 17:11 Hgb 7.2 L Hct 24.1 L Blood Type O NEGATIVE Antibody Screen NEGATIVE Crossmatch IS Only See Detail PD Medical Decision Making - ED course ED course: I clarified with the daughter by phone that she really did not want to pursue further work-up for potential malignant findings on CT yesterday. I left a message for the doctor's office who is caring for him to call back as they sent him here for further work-up. H&H reviewed with a hemoglobin of 7.2, equivalent to when he left yesterday. He did receive 1 more unit of blood here. I did talk with the physician on-call for his nurse practitioner and discussed goals of care as relayed by the daughter as above. Departure - Departure Disposition: 01 Home, Self Care Clinical Impression: Hematoma and contusion, Anemia due to blood loss, acute Condition: Good Record reviewed to determine appropriate education?: Yes Instructions: ED Hematoma Comments: We did give him another unit of blood tonight, although prior to the administration of the blood his hemoglobin was back up to 7.2, the same place where it was when he left yesterday. I did discuss with his daughter the findings on the CAT scan from yesterday and she is not interested in further work-up for malignancy. Otherwise the suggestions from Dr. Hernandes from yesterday are appropriate, holding the Lovenox for another 3 days, and reasonable to repeat hemoglobin on Saturday or so. Return for new or worsening symptoms.
[2022-06-15 17:16] LABS: HCT - HEMATOCRIT 24.1 % (42.0-52.0); HGB - HEMOGLOBIN 7.2 g/dL (14.0-18.0)
[2022-06-15 21:37] VITALS: BP 147/86
== END 2022-06-15 22:09 | disposition home or self-care (01) ==
LOC: EDUNIT# → ED 16:12
DX: D50.0 Iron deficiency anemia secondary to blood loss (chronic) (principal); N39.0 Urinary tract infection, site not specified; S70.02XA Contusion of left hip, initial encounter; W19.XXXA Unspecified fall, initial encounter; E11.9 Type 2 diabetes mellitus without complications; Z79.84 Long term (current) use of oral hypoglycemic drugs; I48.91 Unspecified atrial fibrillation; Z79.01 Long term (current) use of anticoagulants
CPT/HCPCS: 36415; 36430; 81003; 85014; 85018; 86850; 86900; 86901; 86920; 87077; 87086; 87181; 99284; 99285; P9016

== ENCOUNTER 2022-06-15 22:10 | Outpatient (CLI) | payer MEDICARE, OTHER | END 2022-06-15 22:11 | disposition home or self-care (01) | LOC: EMS 22:10 | PROVIDERS: ATTEND Emergency Medicine | DX: R53.1 Weakness (principal); D64.9 Anemia, unspecified | CPT/HCPCS: A0425; A0428 ==

== ENCOUNTER 2022-06-26 15:48 | Outpatient (CLI) | payer MEDICARE, OTHER | END 2022-06-26 23:59 | disposition home or self-care (01) | LOC: EMS 15:48 | PROVIDERS: ATTEND Registered Nurse | DX: R53.1 Weakness (principal); Z91.81 History of falling; Z74.01 Bed confinement status | CPT/HCPCS: A0425; A0428 ==